=== PATIENT | female | born 1995 | race Caucasian/White ===

== ENCOUNTER 2020-01-21 09:28 | Outpatient (REF) | payer OTHER, SELFPAY ==
[2020-01-21 11:42] LABS: Hematocrit 40.1 % (37-47); Hemoglobin 13.4 g/dl (12.0-16.0); Mean Corpuscular HGB Conc 33.4 g/dl (31.0-35.0); Mean Corpuscular Hemoglobin 28.1 pg (27.0-33.0); Mean Corpuscular Volume 84.1 fL (80-98); Mean Platelet Volume 10.6 fL (9.4-12.3); Platelet Count 396 X10*3/uL (160-400); Red Blood Count 4.77 X10*6/uL (4.20-5.50); Red Cell Distribution Width 13.4 % (11.0-16.0); White Blood Count 6.5 X10*3/uL (4.8-10.8)
[2020-01-21 12:01] LABS: Alanine Aminotransferase 28 U/L (0-31); Albumin Level 4.2 g/dL (3.5-5.0); Alkaline Phosphatase 57 U/L (39-117); Anion Gap 14 (12-20); Aspartate Amino Transferase 21 U/L (5-31); Bilirubin Total 0.8 mg/dL (0.0-1.0); Blood Urea Nitrogen 10 mg/dL (9-16); Calcium 9.1 mg/dL (8.4-10.2); Carbon Dioxide 23 mmol/L (22-29); Chloride 104 mmol/L (96-108); Cholesterol 244 mg/dL; Estimated Glomerular Filt Rate > 60; Glucose Fasting 83 mg/dL (60-99); HDL Cholesterol 47 mg/dL; LDL Cholesterol Calculated 181 mg/dl; Potassium 4.5 mmol/l (3.3-5.1); Sodium 136 mmol/L (135-145); Total Protein 7.6 g/dL (6.5-8.0); Triglycerides 82 mg/dL
[2020-01-21 12:24] LABS: Thyroid Stimulating Hormone 1.39 mIU/mL (0.32-4.0)
== END 2020-01-21 09:29 | disposition home or self-care (01) ==
LOC: HO.HMGCLDS 09:28
PROVIDERS: PCP Internal Medicine; Visit Provider Internal Medicine
DX: J45.40 Moderate persistent asthma, uncomplicated (principal); Z00.00 Encounter for general adult medical examination without abnormal findings
CPT/HCPCS: 36415; 80053; 80061; 84443; 85027

== ENCOUNTER → 2020-04-28 09:06 | Outpatient (BNVA) | payer OTHER, SELFPAY | PROVIDERS: PCP Internal Medicine; Visit Provider Advanced Practice Midwife ==

== ENCOUNTER → 2020-08-08 11:42 | Outpatient (BNVA) | payer OTHER, SELFPAY | PROVIDERS: PCP Internal Medicine; Visit Provider Advanced Practice Midwife ==

== ENCOUNTER 2020-09-18 13:31 | Outpatient (REF) | payer OTHER, SELFPAY ==
[2020-09-19 02:39] LABS: CT PCR NOT DETECTED (Not Detect.); NG PCR NOT DETECTED (Not Detect.)
== END 2020-09-18 13:32 | disposition home or self-care (01) ==
LOC: HO.LAB 13:31
PROVIDERS: PCP Internal Medicine; Referring Provider Internal Medicine; Visit Provider Advanced Practice Midwife
DX: Z01.419 Encounter for gynecological examination (general) (routine) without abnormal findings (principal); I49.9 Cardiac arrhythmia, unspecified; N64.4 Mastodynia; Z20.2 Contact with and (suspected) exposure to infections with a predominantly sexual mode of transmission
CPT/HCPCS: 87491; 87591

== ENCOUNTER → 2020-09-28 13:55 | Outpatient (BNVA) | payer OTHER, SELFPAY | PROVIDERS: PCP Internal Medicine; Visit Provider Advanced Practice Midwife | DX: Z30.430 Encounter for insertion of intrauterine contraceptive device (principal) | CPT/HCPCS: 58300; 81025 ==

== ENCOUNTER 2020-10-25 08:25 | Outpatient (REF) | payer OTHER, SELFPAY ==
[2020-10-26 10:28] LABS: BV Int Neg Control Negative (Negative); BV Int Pos Control Positive (Positive)
== END 2020-10-25 08:26 | disposition home or self-care (01) ==
LOC: HO.LAB 08:25
PROVIDERS: Visit Provider Advanced Practice Midwife
DX: Z30.431 Encounter for routine checking of intrauterine contraceptive device (principal); R10.2 Pelvic and perineal pain; N92.1 Excessive and frequent menstruation with irregular cycle
CPT/HCPCS: 87480; 87510; 87660

== ENCOUNTER 2020-11-08 07:32 | Outpatient (REF) | payer OTHER, SELFPAY ==
[2020-11-08 12:23] LABS: Cholesterol 258 mg/dL; HDL Cholesterol 46 mg/dL; LDL Cholesterol Calculated 191 mg/dl; Triglycerides 105 mg/dL
== END 2020-11-08 07:33 | disposition home or self-care (01) ==
LOC: HO.HMGCLDS 07:32
PROVIDERS: PCP Internal Medicine; Visit Provider Internal Medicine
DX: E78.5 Hyperlipidemia, unspecified (principal)
CPT/HCPCS: 36415; 80061

== ENCOUNTER 2020-12-15 10:52 | Outpatient (REF) | payer OTHER, SELFPAY ==
[2020-12-15 13:59] LABS: Hematocrit 40.6 % (37-47); Hemoglobin 13.6 g/dl (12.0-16.0); Mean Corpuscular HGB Conc 33.5 g/dl (31.0-35.0); Mean Corpuscular Hemoglobin 28.9 pg (27.0-33.0); Mean Corpuscular Volume 86.4 fL (80-98); Mean Platelet Volume 10.2 fL (9.4-12.3); Platelet Count 381 X10*3/uL (160-400); Red Cell Distribution Width 12.5 % (11.0-16.0); White Blood Count 9.3 X10*3/uL (4.8-10.8)
[2020-12-15 15:30] LABS: Alanine Aminotransferase 13 U/L (0-31); Albumin Level 4.3 g/dL (3.5-5.0); Alkaline Phosphatase 65 U/L (39-117); Anion Gap 12 (12-20); Aspartate Amino Transferase 15 U/L (5-31); Bilirubin Total 1.2 mg/dL (0.0-1.0); Blood Urea Nitrogen 8 mg/dL (9-16); Calcium 9.5 mg/dL (8.4-10.2); Carbon Dioxide 23 mmol/L (22-29); Chloride 107 mmol/L (96-108); Estimated Glomerular Filt Rate > 60; Glucose Random 81 mg/dL (60-115); Iron 122 mcg/dL (30-160); Percent Iron Saturation 30 % (15-50); Potassium 4.5 mmol/L (3.3-5.1); Sodium 137 mmol/L (135-145); Total Iron Binding Capacity 412 mcg/dL (228-428); Total Protein 7.2 g/dL (6.5-8.0); Unsaturated Iron Binding 290 ug/dL
== END 2020-12-15 10:53 | disposition home or self-care (01) ==
LOC: HO.HMGCLDS 10:52
PROVIDERS: PCP Internal Medicine; Visit Provider Internal Medicine
DX: R53.83 Other fatigue (principal); J45.909 Unspecified asthma, uncomplicated
CPT/HCPCS: 36415; 80053; 83540; 84443; 85027

== ENCOUNTER 2021-01-24 08:24 | Outpatient (REF) | payer OTHER, SELFPAY ==
--- NOTE | ~2021-01-24 | US_ITS ---
EXAMINATION: US ABDOMEN COMPLETE CLINICAL INFORMATION: Unspecified abdominal pain. COMPARISON: Ultrasound abdomen 07/02/2017. TECHNIQUE: Real-time imaging of the abdominal viscera. FINDINGS: PANCREAS: Not well visualized due to bowel gas. ABDOMINAL AORTA: The proximal, mid, and distal segments are normal in caliber. INFERIOR VENA CAVA: Visualized portions are normal. LIVER: Normal. The liver is normal in size. The liver contour is normal. Parenchymal echogenicity is normal. No focal hepatic lesion. There is no intrahepatic biliary duct dilatation seen. GALLBLADDER: The gallbladder is physiologically distended. There is dependent echogenic material seen in the gallbladder suggestive of a layering small stones/gravel and sludge. The gallbladder wall is normal in thickness. There is no pericholecystic fluid. COMMON BILE DUCT: Normal in caliber measuring 0.4 cm in diameter. RIGHT KIDNEY: Normal. No hydronephrosis. No renal calculi or focal parenchymal lesions. The kidney measures 9.0 cm in maximum dimension. LEFT KIDNEY: Normal. No hydronephrosis. No renal calculi or focal parenchymal lesions. The kidney measures 10.0 cm in maximum dimension. SPLEEN: Normal. The spleen measures 8.8 cm in maximum dimension. FREE FLUID: None. US/US abdomen complete IMPRESSION: Small gallstones and sludge in the gallbladder. No evidence of cholecystitis. Limited visualization of the pancreas.
== END 2021-01-24 08:25 | disposition home or self-care (01) ==
LOC: HO.HMGCX 08:24
PROVIDERS: PCP Internal Medicine; Visit Provider Internal Medicine
DX: R10.9 Unspecified abdominal pain (principal)
CPT/HCPCS: 76700

== ENCOUNTER 2021-11-29 15:50 | Outpatient (REF) | payer OTHER, SELFPAY ==
[2021-11-30 11:48] LABS: CT PCR NOT DETECTED (Not Detect.); NG PCR NOT DETECTED (Not Detect.)
[2021-11-30 14:30] LABS: BV Int Neg Control Negative (Negative); BV Int Pos Control Positive (Positive)
== END 2021-11-29 15:51 | disposition home or self-care (01) ==
LOC: HO.LAB 15:50
PROVIDERS: Visit Provider Advanced Practice Midwife
DX: Z11.3 Encounter for screening for infections with a predominantly sexual mode of transmission (principal); R10.2 Pelvic and perineal pain
CPT/HCPCS: 87480; 87491; 87510; 87591; 87660

== ENCOUNTER 2022-05-27 11:01 | Outpatient (REF) | payer OTHER, SELFPAY ==
[2022-05-27 14:57] LABS: CT PCR NOT DETECTED (Not Detect.); NG PCR NOT DETECTED (Not Detect.)
[2022-05-28 12:30] LABS: BV Int Neg Control Negative (Negative); BV Int Pos Control Positive (Positive)
== END 2022-05-27 11:02 | disposition home or self-care (01) ==
LOC: HO.LAB 11:01
PROVIDERS: PCP Internal Medicine; Visit Provider Advanced Practice Midwife
DX: R10.2 Pelvic and perineal pain (principal); N91.5 Oligomenorrhea, unspecified; D64.4 Congenital dyserythropoietic anemia; R21 Rash and other nonspecific skin eruption
CPT/HCPCS: 0353U; 81025; 87480; 87510; 87660

== ENCOUNTER 2022-05-27 11:51 | Outpatient (REF) | payer OTHER, SELFPAY | END 2022-05-27 11:52 | disposition home or self-care (01) | LOC: HO.LNP 11:51 | PROVIDERS: Visit Provider Advanced Practice Midwife | DX: Z13.89 Encounter for screening for other disorder (principal) ==

== ENCOUNTER 2022-06-17 10:51 | Outpatient (REF) | payer OTHER, SELFPAY ==
--- NOTE | ~2022-06-17 | US_ITS ---
EXAMINATION: US PELVIS CLINICAL INFORMATION: Checking IUD. COMPARISON: None available. TECHNIQUE: Ultrasound of the pelvis is performed using both transabdominal and transvaginal transducers along with Doppler. Transvaginal imaging is performed due to inadequate visualization transabdominally. FINDINGS: Uterus: The uterus is anteverted and measures 6.6 cm in length, 3.3 cm in AP, and 4.3 cm in transverse dimension. The double wall endometrial thickness is 0.3 cm. The uterus is smooth in contour and has normal myometrial echogenicity. No visible fibroid. There is an IUD well located within the intrauterine cavity. Adnexa: Both ovaries are visualized. There is normal color-flow to the adnexa. There is no ovarian torsion. There is no pelvic ascites or fluid collection. Right ovary measures 3.0 x 1.8 x 2.4 cm and volume 6.8 mL. The ovary appears unremarkable. Previously it measured 3.2 x 2.5 x 3.2 cm. Left ovary measures 2.6 x 1.8 x 1.6 cm and volume 3.9 mL. There are punctate echogenic foci. Previously the left ovary measured 2.8 x 1.4 x 1.4 cm and volume 2.9 mL. US/US pelvic and transvaginal IMPRESSION: IUD is in correct position within the intrauterine cavity. Punctate calcifications left ovary. The ovaries are otherwise unremarkable.
== END 2022-06-17 10:52 | disposition home or self-care (01) ==
LOC: HO.US 10:51
PROVIDERS: PCP Internal Medicine; Visit Provider Advanced Practice Midwife
DX: Z30.431 Encounter for routine checking of intrauterine contraceptive device (principal); R10.2 Pelvic and perineal pain; N91.5 Oligomenorrhea, unspecified
CPT/HCPCS: 36415; 76830; 76856; 84443

== ENCOUNTER → 2022-07-02 14:51 | Outpatient (BNVA) | payer OTHER, SELFPAY | PROVIDERS: PCP Internal Medicine; Visit Provider Advanced Practice Midwife | DX: Z13.89 Encounter for screening for other disorder (principal) ==

== ENCOUNTER → 2022-09-04 14:00 | Outpatient (REF) | payer OTHER, SELFPAY | LOC: HO.SL 14:00 | PROVIDERS: Visit Provider Internal Medicine | DX: G47.33 Obstructive sleep apnea (adult) (pediatric) (principal); R40.0 Somnolence | CPT/HCPCS: 95806 ==

== ENCOUNTER 2022-10-14 08:16 | Outpatient (AMB) | payer OTHER, SELFPAY ==
[2022-10-14 08:30] VITALS: BMI 42.0
--- NOTE | 2022-10-14 08:30 | A.OFFVIS_ITS ---
Intake VS Expanded 10/14/22 08:30 10/14/22 10:38 Height 5 ft 1 in 5 ft 1 in Weight 222 lb 7.143 oz 222 lb BMI 42.0 41.9 Intake Visit Reasons: Hyperlipidemia Allergies bee pollen [BEE STINGS] Allergy (Severe, Verified 08/16/22 11:45) SWELLING venom-honey bee Allergy (Unknown, Verified 08/16/22 11:45) Unknown HPI Nutrition Presentation Details Pt presents for MNT for hyperlipidemia. Pt was referred by Dr. Gideon Hopkins Pt reports she is also working on reducing gluten and dairy related to GI symptoms (diarrhea with dairy), gluten - upset stomach Who prepares meals: self/parents/in laws/ordering out 7:30 or 10 B: 7- 9AM - sultana/hashbrown strawberry refreshment or sweet tea or caramel coffee with almond milk snack 10 -11 am , refresher or fruit 11: chicken/wing/rice , refresher 6 pm : Pasta/gluten free , sausage fruits: 0- 1/d dairy: once/d- none dairy fish : not including sweets: ++ exercise: 3 times /wk 30-40 min at Gym - walking ETOH: 1-2 /wk UCE-Mbdamim-Tb.Jeor Equation Height 5 ft 1 in Weight 222 lb Resting Metabolic Rate 1695.26 Calculated Activity Level Sedentary Calories Needed to Maintain Weight 2033.31 Diagnosis Nutrition problem #1 excessive energy intake and food nutri know defi As related to (etiology) #1 lack of nutrit education As evidenced by (sign/symptom) #1 high BMI and knowledge deficit of diet Monitoring/Goals Nutrition problem monitoring level of knowledge/skill (, lipid improvements) and weight Nutrition goal/outcome wt loss 5lbs in 2 months (describe low cholesterol foods) Outcome progress verbalized understanding Learning/Education Readiness to learn good Stages of change preparation Educational materials provided Yes (Low fat/low chol , meal planning) Most Recent Diabetes Results: No Data to Display PFSH Medical History Abdominal pain ADHD Annual physical exam Anxiety Asthma Cholelithiasis Fatigue Hyperlipidemia Tremor Surgical History H/O foot surgery Family History Father No problems noted. Mother No problems noted. Brother No problems noted. Sister No problems noted. Other Substance use disorder Social History Housing: House Alcohol intake: current Alcohol intake frequency: holidays/special occasions only Patient Tobacco Use Status: Never used Tobacco e-Cigarette/Vaping Use: Never Used Current occupational status: employed Sexual orientation: Straight/Heterosexual Gender identity: Female Cognitive needs: No Hearing needs: No Vision needs: Yes Female Reproductive History Menstrual Age of Menarche: 14 Assessment & Plan Assessment & Plan (1) Hyperlipidemia: Code(s): E78.5 - Hyperlipidemia, unspecified Plan: used wt 101 kg Est kcal needs as per MSJ: 2000 (40% carb, 30% protein/fat) Est fluid needs as per 25-30 ml/d: 2522- 3030 Est prot per day as per 1 g/kg bw: 101 g Recommend fiber intake : 8-10 g per day and gradually increase to 25-28 g or as tolerated Recommend sodium intake per day : less than 2000 mg Educated patient on: ( R = reviewed V = verbalizes understanding N/R = needs review N/A = not applicable * Food sources of carbohydrate, adequate serving sizes and its role in various health conditions: R basic * Differences between complex carbohydrates a simple carbohydrates, role of fiber in diet: R basic * Differences between types of fats and role in diet (mono on saturated fat fatty acids, saturated fatty acids, trans fats): R basic * Food sources of sodium in salt and healthy modifications for heart health in kidney health: NR * Vitamins and minerals: R * Healthy plate method concept: R * Physical activity: Benefits a precaution: R Patient Instructions: Reduce on fats by reducing frequency of fried food items Have a meal replacement once a day practice mindful eating See low cholesterol meal concept education material printed and meal plan Coding Level of Care Code Nutr Indiv Intake (28798) Diagnoses Hyperlipidemia E78.5 Time Spent (min) 40
[2022-10-14 10:38] VITALS: BMI 41.9
== END 2022-10-14 09:17 | disposition home or self-care (01) ==
PROVIDERS: Visit Provider Dietitian, Registered
DX: E78.5 Hyperlipidemia, unspecified (principal)

== ENCOUNTER → 2022-10-14 08:16 | Outpatient (BNVA) | payer OTHER, SELFPAY | PROVIDERS: Visit Provider Dietitian, Registered | DX: E78.5 Hyperlipidemia, unspecified (principal); Z71.3 Dietary counseling and surveillance | CPT/HCPCS: 97802 ==

== ENCOUNTER 2023-08-13 08:26 | Outpatient (REF) | payer OTHER, SELFPAY ==
[2023-08-13 10:22] LABS: MANUAL DIFF FLAG NO
[2023-08-13 10:35] LABS: Basophils Absolute Auto 0.1 X10*3/uL (0.0-0.2); Basophils Percent Auto 0.5 % (0-2); Eosinophils Absolute Auto 0.1 X10*3/uL (0.0-0.4); Hematocrit 40.9 % (37.0-47.0); Hemoglobin 13.7 g/dl (12.0-16.0); Imm Gran Abs Auto 0.03 X10*3/uL (0.00-0.03); Imm Gran Pct Auto 0.3 % (0.0-0.4); Lymphocytes Absolute Auto 2.9 X10*3/uL (1.2-4.9); Lymphocytes Percent Auto 31.6 % (20-40); Mean Corpuscular HGB Conc 33.5 g/dl (31.0-35.0); Mean Corpuscular Hemoglobin 29.3 pg (27.0-33.0); Mean Corpuscular Volume 87.6 fL (80.0-98.0); Mean Platelet Volume 10.4 fL (9.4-12.3); Monocytes Absolute Auto 0.7 X10*3/uL (0.1-1.2); Monocytes Percent Auto 7.7 % (2-11); Neutrophils Absolute Auto 5.5 x10*3/uL (2.0-8.3); Neutrophils Percent Auto 58.9 % (45-73); Platelet Count 372 X10*3/uL (160-400); Red Blood Count 4.67 X10*6/uL (4.20-5.50); Red Cell Distribution Width 12.5 % (11.0-16.0); White Blood Count 9.3 X10*3/uL (4.8-10.8)
[2023-08-13 10:51] LABS: Alanine Aminotransferase 14 U/L (0-31); Albumin Level 4.3 g/dL (3.5-5.0); Alkaline Phosphatase 64 U/L (39-117); Anion Gap 13 (12-20); Aspartate Amino Transferase 16 U/L (5-31); Bilirubin Total 0.9 mg/dL (0.0-1.0); Blood Urea Nitrogen 9 mg/dL (9-16); Calcium 9.5 mg/dL (8.4-10.2); Carbon Dioxide 23 mmol/L (22-29); Chloride 106 mmol/L (96-108); Cholesterol 202 mg/dL (<200); Estimated Glomerular Filt Rate > 60; Glucose Fasting 90 mg/dL (60-99); HDL Cholesterol 45 mg/dL (>40); Iron 113 mcg/dL (30-160); LDL Cholesterol Calculated 138 mg/dL (<100); Percent Iron Saturation 33 % (15-50); Potassium 4.3 mmol/L (3.3-5.1); Sodium 138 mmol/L (135-145); Total Iron Binding Capacity 339 mcg/dL (228-428); Total Protein 7.7 g/dL (6.5-8.0); Triglycerides 97 mg/dL (<150); Unsaturated Iron Binding 226 ug/dL
[2023-08-13 11:21] LABS: Folate 5.4 ng/mL (> or = 4.0); Vitamin B12 430 pg/mL (200-900)
== END 2023-08-13 08:27 | disposition home or self-care (01) ==
LOC: HO.HMGCLDS 08:26
PROVIDERS: PCP Internal Medicine; Visit Provider Internal Medicine
DX: E78.5 Hyperlipidemia, unspecified (principal); R40.0 Somnolence; R53.83 Other fatigue
CPT/HCPCS: 36415; 80053; 80061; 82607; 82746; 83540; 85025

== ENCOUNTER 2023-08-22 13:18 | Outpatient (AMB) | payer OTHER, SELFPAY ==
--- NOTE | 2023-08-22 13:38 | MHC.PC.OV ---
Vital Signs 08/22/23 13:39 Height 5 ft 1 in Weight 216 lb BMI 40.8 BP 104/66 Blood Pressure Location Lt brachial Position Sitting Pulse 78 Pulse Source Pulse Oximeter Pulse Oximetry (%) 98 Oxygen Delivery Method Room Air Intake Visit Reasons: PE, discuss possible food allergies Intake Note: Pt is here today for for PE. Allergies bee pollen [BEE STINGS] Allergy (Severe, Verified 08/22/23 13:40) SWELLING venom-honey bee Allergy (Unknown, Verified 08/22/23 13:40) Unknown Medication List - Last Reconciled 08/22/23 by Tamela Hopkins MD albuterol sulfate 90 mcg/actuation 2 inhalations inhalation QID PRN levonorgestrel (Kyleena) intrauterine Tobacco use date assessed: 08/22/23 Dental Screening Dental Screen Date: 08/22/23 Did you have a dental visit in the last 12 months?: Yes Did you have a dental problem in the last 6 months where you did not have access to dental care?: No Was dental information given to patient?: Patient has dentist HPI PE, discuss possible food allergies HPI Details Pt presents for PE. Pt c/o watery diarrhea up to 6 x a day, for 1 month on and off not related to change in her diet. Patient denies abdominal pain nausea vomiting hematochezia melena or weight loss. PFSH Medical History ADHD Cholelithiasis Abdominal pain Anxiety Fatigue Tremor Annual physical exam Hyperlipidemia Asthma Surgical History H/O foot surgery Family History Father No problems noted. Mother No problems noted. Brother No problems noted. Sister No problems noted. Other Substance use disorder Social History Housing: House Alcohol intake: current Alcohol intake frequency: holidays/special occasions only Patient Tobacco Use Status: Never used Tobacco e-Cigarette/Vaping Use: Never Used service: No Current occupational status: employed Sexual orientation: Straight/Heterosexual Gender identity: Female Cognitive needs: No Hearing needs: No Vision needs: Yes Female Reproductive History Menstrual Age of Menarche: 14 Questionnaire PHQ-9 Over the last 2 weeks, how often have you been bothered by any of the following problems? 1. Little interest or pleasure in doing things: several days 2. Feeling down, depressed, or hopeless: several days 3. Trouble falling or staying asleep, or sleeping too much: not at all 4. Feeling tired or having little energy: several days 5. Poor appetite or overeating: not at all 6. Feeling bad about yourself - or that you are a failure or have let yourself or your family down: not at all 7. Trouble concentrating on things, such as reading the newspaper or watching television: not at all 8. Moving or speaking so slowly that other people could have noticed. Or the opposite - being so fidgety or restless that you have been moving around a lot more than usual: more than half the days 9. Thoughts that you would be better off or of hurting yourself in some way: not at all Total score: 5 Depression Screening Interpretation: Negative Depression Screening Done: Yes Source: Developed by Drs. Venkatesh Mason, Kristina Fleming, Koko Emmanuel and colleagues, with an educational elliot from [employer]. Thrive Questionnaire Date Thrive assessed: 08/22/23 I am a: Patient What is your living situation today?: I have a steady place to live Within the past 12 months, did the food you bought not last and you didn't have the money to get more?: Never true Within the past 12 months, did you worry whether your food would run out before you got money to buy more?: Never true Do you have trouble paying for medicines?: No Do you have trouble getting transportation to medical appointments?: No Do you have trouble paying your heating and electricity bill?: No Do you have trouble taking care of your child, family member or friend?: No Do you have trouble with day-to-day activities such as bathing, preparing meals, shopping, managing finances, etc.?: No Are you currently unemployed and looking for a job?: No Are you interested in more education?: No Please select the resources that you would like help with: None THRIVE Score: 0 AUDIT C Alcohol Use Questionnaire (AUDIT-C) 1. How often do you have a drink containing alcohol?: 2-4 times a month 2. How many drinks containing alcohol do you have on a typical day when you are drinking?: 1 or 2 3. How often do you have six or more drinks on one occasion?: Never Total Score: 2 DIMAS-7 AMB Questionnaire DIMAS-7 Date DIMAS - 7 assessed: 08/22/23 Feeling nervous, anxious, or on edge: 3 = Nearly every day Not being able to stop or control worryin = Nearly every day Worrying too much about different things: 3 = Nearly every day Trouble relaxin = More than half the days Being so restless that it is hard to sit still: 3 = Nearly every day Becoming easily annoyed or irritable: 3 = Nearly every day Feeling afraid as if something awful might happen: 1 = Several days Total DIMAS-7 score (0-4 normal; 5-9 mild; 10-14 moderate; 15-21 severe): 18 Source: Developed by Drs. Venkatesh Mason, Kristina Fleming, Koko Emmanuel and colleagues, with an educational elliot from [employer]. Review of Systems Const All systems reviewed & are unremarkable except as noted in HPI and below Reports no additional complaints Eyes Reports no additional complaints ENT Reports no additional complaints Card Reports no additional complaints Resp Reports no additional complaints GI Reports no additional complaints Reports no additional complaints Physical exam (Primary Care) Vital Signs: Last Vital Signs Pulse 78 08/22/23 13:39 BP 104/66 08/22/23 13:39 Pulse Ox 98 08/22/23 13:39 Oxygen Delivery Method Room Air 08/22/23 13:39 BMI result Body Mass Index 40.8 Tobacco/Smoking Status: Tobacco use Status Tobacco use date assessed 08/22/23 08/22/23 13:44 Patient Tobacco Use Status Never used Tobacco 08/22/23 13:44 e-Cigarette/Vaping Use Never Used 08/22/23 13:44 PHQ-9: PHQ-9 Score PHQ-9: Total score 5 08/22/23 13:54 Depression Screening Interpretation: Negative Thrive Assessment: Date of Thrive Assessment Date Thrive assessed 08/22/23 08/22/23 13:54 Const General: no acute distress HENMT Head: Yes normal to inspection Ears: hearing grossly normal bilaterally Face and sinus: Yes normal facial exam Mouth: Normal oral and palatal mucosa present Throat: Yes posterior oropharynx normal Eyes General: appearance normal, both eyes and all related structures Neck Neck: Yes no lymphadenopathy and Yes supple Resp Effort & Inspection: normal respiratory effort Auscultation: clear to auscultation bilaterally Cardio Rhythm: regular rhythm Heart sounds: S1 normal heart sound present and S2 normal heart sound present GI Inspection: Yes normal to inspection Palpation (GI): Soft to palpation Percussion: Yes normal to percussion Auscultation: normal bowel sounds Assessment and Plan Assessment & Plan (1) Diarrhea: Code(s): R19.7 - Diarrhea, unspecified Plan: For recurrent diarrhea obtain GI panel and stool leukocytes, bland diet for 1 week and then slowly introduce fresh vegetables and fruits discussed with the patient. She was advised to try Citrucel. If the symptoms persist she will be referred to GI (2) Cholelithiasis: Code(s): K80.20 - Calculus of gallbladder without cholecystitis without obstruction Plan: Obtain follow-up abdominal ultrasound (3) Plantar wart of right foot: Code(s): B07.0 - Plantar wart Plan: Referred to Podiatry (4) Annual physical exam: Code(s): Z00.00 - Encounter for general adult medical examination without abnormal findings Plan: Well-balanced diet regular exercise weight loss discussed with the patient Orders: Orders GI Panel Today R19.7 - Diarrhea, unspecified Leukocytes Stool Qualitative Today R19.7 - Diarrhea, unspecified US abdomen limited Today K80.20 - Calculus of gallbladder without cholecystitis without obstruction Lipid Panel 1 Year E78.5 - Hyperlipidemia, unspecified, Z00.00 - Encounter for general adult medical examination without abnormal findings Complete Blood Count Auto Diff 1 Year E78.5 - Hyperlipidemia, unspecified, Z00.00 - Encounter for general adult medical examination without abnormal findings Comprehensive Climax. Panel Fast 1 Year E78.5 - Hyperlipidemia, unspecified, Z00.00 - Encounter for general adult medical examination without abnormal findings Referrals Podiatry Referral B07.0 - Plantar wart Dermatology Referral L68.0 - Hirsutism, L73.2 - Hidradenitis suppurativa Coding Level of Care Code Est Pt Prev Care 18-39y(91997) Diagnoses Diarrhea R19.7 Cholelithiasis K80.20 Plantar wart of right foot B07.0 Annual physical exam Z00.00
[2023-08-22 13:39] VITALS: BP 104/66; PULSE 78; O2SAT 98; BMI 40.8
== END 2023-08-22 15:32 | disposition home or self-care (01) ==
PROVIDERS: Visit Provider Internal Medicine
DX: Z00.00 Encounter for general adult medical examination without abnormal findings (principal); R19.7 Diarrhea, unspecified; K80.20 Calculus of gallbladder without cholecystitis without obstruction; B07.0 Plantar wart
CPT/HCPCS: 99395

== ENCOUNTER 2023-08-23 11:45 | Outpatient (REF) | payer OTHER, SELFPAY ==
[2023-08-23 16:32] LABS: Leukocytes Stool Qualitative NEGATIVE (NEGATIVE)
[2023-08-24 11:48] LABS: Adenovirus F 40/41 Not Detected (Not Detect.); Astrovirus Not Detected (Not Detect.); Campylobacter Not Detected (Not Detect.); Cryptosporidium Not Detected (Not Detect.); Cyclospora cayetanensis Not Detected (Not Detect.); E. coli EAEC Not Detected (Not Detect.); E. coli EPEC Not Detected (Not Detect.); E. coli ETEC Not Detected (Not Detect.); E. coli STEC Not Detected (Not Detect.); Entamoeba histolytica Not Detected (Not Detect.); Giardia lamblia Not Detected (Not Detect.); Plesiomonas shigelloides Not Detected (Not Detect.); Rotavirus A Not Detected (Not Detect.); Salmonella Not Detected (Not Detect.); Sapovirus Not Detected (Not Detect.); Shigella sp./EIEC Not Detected (Not Detect.); Vibrio Not Detected (Not Detect.); Vibrio Cholerae Not Detected (Not Detect.); Yersinia enterocolitica Not Detected (Not Detect.)
[2023-08-26 13:22] LABS: Norovirus Stool PCR NOT DETECTED
== END 2023-08-23 11:46 | disposition home or self-care (01) ==
LOC: HO.HMGCLNP 11:45
PROVIDERS: PCP Internal Medicine; Visit Provider Internal Medicine
DX: R19.7 Diarrhea, unspecified (principal)
CPT/HCPCS: 87507; 89055

== ENCOUNTER 2023-08-28 08:19 | Outpatient (REF) | payer OTHER, SELFPAY ==
--- NOTE | ~2023-08-28 | US_ITS ---
EXAMINATION: US ABDOMEN LIMITED CLINICAL INFORMATION: Calculus of gallbladder without cholecystitis without obstruction. COMPARISON: Ultrasound abdomen complete 01/24/2021 and 07/02/2017. TECHNIQUE: Real-time imaging of the right upper quadrant abdominal viscera. Limited visualization due to bowel gas. FINDINGS: PANCREAS: Limited visualization of pancreatic tail and head. Imaged portion of pancreatic body is unremarkable. LIVER: Hepatomegaly, 16.3 cm. Moderately increased hepatic parenchymal heterogeneity and echogenicity could be associated with hepatocellular disease/hepatic steatosis and substantially limits visualization. Correlation with liver function tests and clinical exam recommended to determine further management. GALLBLADDER: Gallbladder difficult to visualize as there is extensive shadowing in the region of the gallbladder fossa characteristic of innumerable shadowing gallstones. Gallbladder wall difficult to visualize, but imaged segment appears thickened, measuring approximately 5 mm. COMMON BILE DUCT: Normal in caliber measuring 0.3 cm in diameter. RIGHT KIDNEY: Normal. No hydronephrosis. No renal calculi or focal parenchymal lesions. The kidney measures 9.1 cm in maximum dimension. FREE FLUID: None. US/US abdomen limited IMPRESSION: 1. Hepatomegaly, 16.3 cm. Moderately increased hepatic parenchymal heterogeneity and echogenicity could be associated with hepatocellular disease/hepatic steatosis and substantially limits visualization. Correlation with liver function tests and clinical exam recommended to determine further management. 2. Gallbladder difficult to visualize as there is extensive shadowing in the region of the gallbladder fossa characteristic of innumerable shadowing gallstones. Gallbladder wall difficult to visualize, but imaged segment appears thickened, measuring approximately 5 mm.
== END 2023-08-28 08:20 | disposition home or self-care (01) ==
LOC: HO.US 08:19
PROVIDERS: PCP Internal Medicine; Visit Provider Internal Medicine
DX: K80.20 Calculus of gallbladder without cholecystitis without obstruction (principal)
CPT/HCPCS: 76705

== ENCOUNTER 2023-11-03 12:05 | Outpatient (REF) | payer OTHER, SELFPAY ==
[2023-11-03 13:56] LABS: Alanine Aminotransferase 18 U/L (0-31); Albumin Level 4.2 g/dL (3.5-5.0); Alkaline Phosphatase 62 U/L (39-117); Aspartate Amino Transferase 19 U/L (5-31); Bilirubin Direct 0.2 mg/dL (0.0-0.5); Bilirubin Total 0.9 mg/dL (0.0-1.0); Total Protein 7.4 g/dL (6.5-8.0)
[2023-11-04 08:30] LABS: HBS Num1 0.73 mIU/mL (0-7.99); HBc Num1 0.08 S/CO (0.00-0.79); HBsAGNum1 0.28 S/CO (0.00-0.99); Hepatitis B Core Antibody Nonreactive (Nonreactive); Hepatitis B Surface Antigen Negative (Negative); ~HepC Num1 0.14 S/CO (0.00-0.79); ~Hepatitis B Surface Antibody NONREACTIVE (Nonreactive); ~Hepatitis C Antibody Nonreactive (Nonreactive)
== END 2023-11-03 12:06 | disposition home or self-care (01) ==
LOC: HO.HMGCLDS 12:05
PROVIDERS: PCP Internal Medicine; Visit Provider Internal Medicine
DX: K76.0 Fatty (change of) liver, not elsewhere classified (principal)
CPT/HCPCS: 36415; 80076; 86704; 86706; 86803; 87340

== ENCOUNTER 2023-11-05 09:31 | Outpatient (AMB) | payer OTHER, SELFPAY ==
--- NOTE | 2023-11-05 09:31 | A.OFFPC_ITS ---
Intake Visit Reasons: Telehealth visit to discuss labs and questions Allergies bee pollen [BEE STINGS] Allergy (Severe, Verified 11/05/23 09:32) SWELLING venom-honey bee Allergy (Unknown, Verified 11/05/23 09:32) Unknown Medication List - Last Reconciled 11/05/23 by Tamela Hopkins MD albuterol sulfate 90 mcg/actuation 2 inhalations inhalation QID PRN levonorgestrel (Kyleena) intrauterine Tobacco use date assessed: 11/05/23 Dental Screening Dental Screen Date: 08/22/23 HPI Telehealth visit to discuss labs and questions HPI Details This is a telehealth visit to discuss results of the abdominal ultrasound. Patient reports intermittent diarrhea after eating fatty foods like sausages. She reports intermittent right upper quadrant abdominal discomfort but not persistent pain nausea vomiting fever chills. Patient denies hematochezia melena. Abdominal ultrasound was consistent with hepatomegaly and fatty liver. Patient drinks usually 1 or 2 beer a week. [facility] Medical History ADHD Cholelithiasis Abdominal pain Anxiety Fatigue Tremor Annual physical exam Hyperlipidemia Asthma Surgical History H/O foot surgery Family History Father No problems noted. Mother No problems noted. Brother No problems noted. Sister No problems noted. Other Substance use disorder Social History Housing: House Alcohol intake: current Alcohol intake frequency: holidays/special occasions only Patient Tobacco Use Status: Never used Tobacco e-Cigarette/Vaping Use: Never Used service: No Current occupational status: employed Sexual orientation: Straight/Heterosexual Gender identity: Female Cognitive needs: No Hearing needs: No Vision needs: Yes Female Reproductive History Menstrual Age of Menarche: 14 Questionnaire Thrive Questionnaire Date Thrive assessed: 08/22/23 DIMAS-7 AMB Questionnaire DIMAS-7 Date DIMAS - 7 assessed: 08/22/23 Source: Developed by Drs. Venkatesh Mason, Kristina Fleming, Koko Emmanuel and colleagues, with an educational elliot from [employer]. Review of Systems Const All systems reviewed & are unremarkable except as noted in HPI and below Reports no additional complaints Eyes Reports no additional complaints ENT Reports no additional complaints Card Reports no additional complaints Resp Reports no additional complaints GI Reports no additional complaints Reports no additional complaints Physical exam (Primary Care) Tobacco/Smoking Status: Tobacco use Status Tobacco use date assessed 11/05/23 11/05/23 09:32 Patient Tobacco Use Status Never used Tobacco 11/05/23 09:32 e-Cigarette/Vaping Use Never Used 11/05/23 09:32 Thrive Assessment: Date of Thrive Assessment Date Thrive assessed 08/22/23 11/05/23 09:32 Telehealth Telehealth Telehealth Platform: Telephone Location of provider rendering services: practice address Location of patient: address on file Patient Identification confirmed using: Name, : Yes Telehealth method: voice only Patient verbally consented to treatment: Yes Patient verbally consented to billing insurance company: Yes Patient informed of any privacy concerns related to visit: Yes Minutes spent on Phone/Video with Pt.: 15 Assessment and Plan Assessment & Plan (1) Gall bladder stones: Comment: Abdominal ultrasound consistent with multiple gallstones hepatomegaly and fatty liver, stool test negative Code(s): K80.20 - Calculus of gallbladder without cholecystitis without obstruction Plan: For intermittent rapid quadrant pain and diarrhea after eating fatty foods on ultrasound consistent with multiple gallstones patient will be referred to a surgeon to discuss cholecystectomy. She was advised to avoid fatty processed foods (2) Fatty liver: Code(s): K76.0 - Fatty (change of) liver, not elsewhere classified Plan: Decrease caloric intake increase physical activity weight loss discussed with the patient. She was advised to avoid high fructose foods and saturated fats. Orders: Referrals General Surgery Referral K80.20 - Calculus of gallbladder without cholecystitis without obstruction Coding Level of Care Code Tele Est Pt Level 3 (50853) Diagnoses Gall bladder stones K80.20 Fatty liver K76.0
== END 2023-11-05 10:55 | disposition home or self-care (01) ==
LOC: HO.HMGC 09:31
PROVIDERS: PCP Internal Medicine; Visit Provider Internal Medicine
DX: K80.20 Calculus of gallbladder without cholecystitis without obstruction (principal); K76.0 Fatty (change of) liver, not elsewhere classified
CPT/HCPCS: 99442

== ENCOUNTER 2023-11-10 13:39 | Outpatient (AMB) | payer OTHER, SELFPAY ==
--- NOTE | 2023-11-10 13:40 | A.OFFVIS_ITS ---
Vital Signs 11/10/23 13:44 Height 5 ft 1 in Weight 213 lb BMI 40.2 BP 129/74 Blood Pressure Location Lt brachial Position Sitting Pulse 77 Intake Visit Reasons: Calculus of gallbladder without cholecystitis Intake Note: Patient is seen in office for evaluation and treatment of calculus of the gallbladder. Pt c/o: had ultrasound done in the past, onset for years, discomfort in the upper abdomen radiates to the back, post pandrial nausea/loose stool, denies any other concerns Manager Utilization Management Required: No Accompanied by: Self / Same As Patient Allergies bee pollen [BEE STINGS] Allergy (Severe, Verified 11/10/23 13:44) SWELLING venom-honey bee Allergy (Unknown, Verified 11/10/23 13:44) Unknown HPI Comments Details: Patient presents with longstanding history of biliary colic. She has had several episodes of right upper quadrant pain radiating around to her back. She has has had a couple of ultrasounds which document marked cholelithiasis. Patient also thinks she has fatty food intolerance and has had her diet altered because she is very afraid to eat because of recurrence of symptoms. She other perry has regular bowel habits. Never been jaundiced before. Patient has had multiple medical and ER visits for her symptoms. Chart was reviewed and patient evaluate [facility] Medical History ADHD Cholelithiasis Abdominal pain Anxiety Fatigue Tremor Annual physical exam Hyperlipidemia Asthma Surgical History H/O foot surgery Family History Father No problems noted. Mother No problems noted. Brother No problems noted. Sister No problems noted. Other Substance use disorder Social History Housing: House Alcohol intake: current Alcohol intake frequency: holidays/special occasions on ly Patient Tobacco Use Status: Never used Tobacco e-Cigarette/Vaping Use: Never Used service: No Current occupational status: employed Sexual orientation: Straight/Heterosexual Gender identity: Female Cognitive needs: No Hearing needs: No Vision needs: Yes Female Reproductive History Menstrual Age of Menarche: 14 Physical Exam Vital Signs: Last Vital Signs Pulse 77 11/10/23 13:44 BP 129/74 0812/24 13:44 BMI result Body Mass Index 40.2 Eyes Other: Anicteric Chest Other: Chest breath sounds bilaterally, HS 1 in GI Other: Very corpulent abdomen, soft, benign Assessment & Plan Assessment & Plan (1) Gall bladder stones: Comment: Abdominal ultrasound consistent with multiple gallstones hepatomegaly and fatty liver, stool test negative Code(s): K80.20 - Calculus of gallbladder without cholecystitis without obstruction Category: Surgical (2) Symptomatic cholelithiasis: Code(s): K80.20 - Calculus of gallbladder without cholecystitis without obstruction Category: Surgical Plan Risks, benefits, alternatives of laparoscopic possible open cholecystectomy reviewed the patient included but not limited to bleeding, infection, recurrence of symptoms, numbness, pain, scarring, bowel or bile duct injury or leak and the patient wishes to proceed. All questions answered. Arrangements were made for this. Coding Level of Care Code New Pt Level 5 (47620) Diagnoses Gall bladder stones K80.20 Symptomatic cholelithiasis K80.20
[2023-11-10 13:44] VITALS: BP 129/74; PULSE 77; BMI 40.2
== END 2023-11-10 13:52 | disposition home or self-care (01) ==
PROVIDERS: PCP Internal Medicine; Visit Provider Surgery
DX: K80.20 Calculus of gallbladder without cholecystitis without obstruction (principal)
CPT/HCPCS: 99204

== ENCOUNTER → 2023-11-10 13:39 | Outpatient (BNVA) | payer OTHER, SELFPAY | PROVIDERS: PCP Internal Medicine; Visit Provider Surgery ==

== ENCOUNTER 2023-12-17 09:10 | Outpatient (REF) | payer OTHER, SELFPAY ==
[2023-12-17 11:10] LABS: TSH reflex Free T4 1.16 uIU/mL (0.32-4.0); Vitamin D 25-OH Total 25.5 ng/mL (>30)
== END 2023-12-17 09:11 | disposition home or self-care (01) ==
LOC: HO.HMGCLDS 09:10
PROVIDERS: PCP Internal Medicine; Visit Provider Internal Medicine
DX: L65.9 Nonscarring hair loss, unspecified (principal)
CPT/HCPCS: 36415; 82306; 84443

== ENCOUNTER 2023-12-26 09:45 | Day surgery (SDC) | payer OTHER, SELFPAY ==
[2023-12-24 14:03] VITALS: BMI 40.2
--- NOTE | 2023-12-24 15:02 | P.CONAN_ITS ---
Documented by User: Liliam Main NP 12/24/23 15:03 HPI - Anesthesia Eval Consult details Narrative: 28yo F for Cholecystectomy Laparoscopic PMFSH Active Problems Active Problems: All Active Problems Hair loss (Acute) Symptomatic cholelithiasis (Acute) Gall bladder stones (Acute) Fatty liver (Acute) Hidradenitis suppurativa (Acute) Hirsutism (Acute) Plantar wart of right foot (Acute) Diarrhea (Acute) Allergies (Acute) Daytime sleepiness (Acute) Hyperlipidemia (Acute) Pelvic cramping (Acute) Encounter for annual routine gynecological examination (Acute) Encounter for IUD insertion (Acute) control counseling (Acute) Annual physical exam (Acute) Cholelithiasis (Acute) Abdominal pain (Acute) Anxiety (Acute) Fatigue (Acute) Asthma (Acute) Tremor (Acute) Hyperlipidemia (Acute) Past Medical History Medical History Sleep apnea ADHD Cholelithiasis Abdominal pain Anxiety Fatigue Tremor Hyperlipidemia Asthma Family History Family History Father No problems noted. Mother No problems noted. Brother No problems noted. Sister No problems noted. Other Substance use disorder Surgical History Surgical History H/O foot surgery Social History Social History Housing: House Are you a primary care team coordinator scheduler to a significant other at home: No Do you presently have visiting nurse or other home services: No Alcohol intake: current Alcohol intake frequency: holidays/special occasions only Patient Tobacco Use Status: Never used Tobacco e-Cigarette/Vaping Use: Never Used Use of substances other than those prescribed or required for medical reasons: Yes Substance Use Frequency: Weekly Have you been hit, kicked, punched, or otherwise hurt by someone within the past year? If so, by whom?: No Are you DNR?: No Advance Directives: No Advance Directives Information Provided: Yes Recently lost weight without trying: No Nutrition Risks: No Nutritional Risk Patient : No service: No Current occupational status: employed Sexual orientation: Straight/Heterosexual Gender identity: Female Cognitive needs: No Hearing needs: No Vision needs: Yes Meds Allergies Allergy/AdvReac Type Severity Reaction Status Date / Time bee pollen [BEE STINGS] Allergy Severe SWELLING Verified 11/10/23 13:44 Home Medications ?Medication ?Instructions ?Recorded ?Confirmed ?Last Taken ?Type levonorgestrel 17.5 mcg/24 hr (up 1 device intrauterine ONCE 12/13/20 12/24/23 Unknown History to 5 yrs) 19.5mg intrauterine device (Kyleena) Exam Height,Weight and Vital Signs: Height 5 ft 1 in Weight 96.615 kg Pertinent Lab Results Pertinent Lab Results: Laboratory Tests 08/13/23 08:55 WBC 9.3 Hgb 13.7 Hct 40.9 Plt Count 372 Sodium 138 Potassium 4.3 Chloride 106 Carbon Dioxide 23 BUN 9 Creatinine 0.78 Assessment and Plan Assessment Anesthesia Assessment: Chart Reviewed Documented by User: Judy Taveras MD 12/26/23 11:06 [facility] Past Medical History Medical History Sleep apnea ADHD Cholelithiasis Abdominal pain Anxiety Fatigue Tremor Hyperlipidemia Asthma Family History Family History Father No problems noted. Mother No problems noted. Brother No problems noted. Sister No problems noted. Other Substance use disorder Family history of problems with anesthesia: No Surgical History Surgical History H/O foot surgery History of Problems with Anesthesia: No Social History Social History Housing: House Are you a primary care team coordinator scheduler to a significant other at home: No Do you presently have visiting nurse or other home services: No Alcohol intake: current Alcohol intake frequency: holidays/special occasions only Patient Tobacco Use Status: Never used Tobacco e-Cigarette/Vaping Use: Never Used Use of substances other than those prescribed or required for medical reasons: Yes Substance Use Frequency: Weekly Have you been hit, kicked, punched, or otherwise hurt by someone within the past year? If so, by whom?: No Are you DNR?: No Advance Directives: No Advance Directives Information Provided: Yes Recently lost weight without trying: No Nutrition Risks: No Nutritional Risk Patient : No service: No Current occupational status: employed Sexual orientation: Straight/Heterosexual Gender identity: Female Cognitive needs: No Hearing needs: No Vision needs: Yes Meds Allergies Allergy/AdvReac Type Severity Reaction Status Date / Time bee pollen [BEE STINGS] Allergy Severe SWELLING Verified 11/10/23 13:44 Home Medications ?Medication ?Instructions ?Recorded ?Confirmed ?Last Taken ?Type levonorgestrel 17.5 mcg/24 hr (up 1 device intrauterine ONCE 12/13/20 12/24/23 Unknown History to 5 yrs) 19.5mg intrauterine device (Kyleena) Exam Airway Mallampati Class: II TM Dist: <=3cm Neck ROM: Full Heart: rrr Lungs: cta Assessment and Plan Assessment Anesthesia Assessment: Anesthesia Plan Discussed Final Anesthetic Review Family History of Problems with Anesthesia: No History of Problems with Anesthesia: No NPO: Yes ASA Class: III Final Preanesthetic Review: No Changes in Pt Med Stat, Meds/Allgs Chart Reviewed, Consent Obtained/Reviewed and Anes Risks/Benef Reviewed Patient Risk: Intermediate Procedure Risk: Intermediate Anesthetic Plan Anesthetic Plan: GA Disposition: Standard PACU
--- NOTE | 2023-12-25 13:16 | MHC.SHP ---
Pre-Procedural Eval Section A - 24 Hr Update-Section A only Date of Service: 12/26/23 The patient is an INPATIENT: No Changes since office visit: No Cold of Flu in the past 2 weeks, No New Medical Problems, No Changes in Medication and No Patient answered all questions Section B - Complete if H&P > 30 days Chief Complaint: Calculus of gallbladder without cholecystitis Allergies: Allergies Allergy/AdvReac Type Severity Reaction Status Date / Time bee pollen [BEE STINGS] Allergy Severe SWELLING Verified 11/10/23 13:44 Review of Systems Sugical H&P ROS: Negative: Constitution, Cardiovascular, Respiratory, Neurological, Psychiatric, Hem-Onc, Allergic/Immunologic, Gastrointestinal, Genitourinary, Musculoskeletal, Integumentary, Endocrine and Eyes/Ears/Nose/Throat Exam Surgical H&P Exam: Normal: HEENT, Normal: Heart, Normal: Lungs, Normal: Extremities, Normal: Abdomen, Normal: Skin and Normal: Neurological Plan I have reviewed the history and physical and performed a pertinent physical examination on my patient. No changes have occurred unless specified. Time Spent With Patient Time: Total time managing care of this patient today ____ minutes.
[2023-12-26] VITALS (14 sets, daily range): BP systolic 100–124; BP diastolic 59–69; PULSE 49–89; RESP 12–16; TEMP 36.1–36.3; O2SAT 96–100; BMI 39.5
[2023-12-26 10:40] LABS: UPreg QC Valid YES; Urine Pregnancy NEGATIVE (NEGATIVE)
[2023-12-26] MEDS: Lactated Ringers 1,000 ML 100 ML IVCONT (11:05)
--- NOTE | 2023-12-26 11:57 | P.OP_ITS ---
Operative Note Operative Note Date of Service: 12/26/23 Narrative: Preoperative diagnosis: [] Symptomatic gallbladder Postop diagnosis: [] The same Procedure [] laparoscopic cholecystectomy Surgeon: [] Gabe [employer] Operator: [] Tracy Type of Anesthesia: [] General Indication for surgery: [] Corpulent abdomen. Gallbladder with omental adhesions to it. Intrahepatic gallbladder. Findings: [] Patient brought to the operating room, placed on operative table supine position, after an adequate level of general anesthesia was induced, the patient's abdomen was prepped and draped in usual sterile fashion using a supraumbilical curvilinear incision, Fernando technique was used to insufflate abdominal cavity to 15 mm of CO2. Upper midline and right subcostal ports were placed under direct laparoscopic view, the patient placed in reverse Trendelenburg position, tilted to the left. Findings were as noted above. Gallbladder was grasped using laparoscopic graspers, and retracted superiorly and laterally. Omental adhesions swept off the gallbladder with the hilum was approached. Cystic artery and cystic duct were each identified, circumferentially skeletonized, traced directly into the gallbladder, and critical view obtained. Each was clipped proximally x2, distally x1, and transected. Gallbladder which was moderately intrahepatic was then cauterized in the gallbladder fossa using Bovie. Specimen was placed in an Endo-Catch bag, a retrieved through the umbilical port. Abdominal cavity was copiously irrigated and secured hemostasis. All ports removed under direct laparoscopic view. Wounds were closed in the following manner; umbilical wound is fascia reapproximated using interrupted 0 Vicryl sutures. Skin wounds were closed using subcuticular 4-0 Vicryl sutures followed by Steri-Strips and sterile dressings. Wounds were infiltrated 0.5% Marcaine at completion. Sponge, needle, and instrument counts were reported correct. Patient tolerated the procedure well and emerged from anesthesia stable condition. EBL minimal
[2023-12-26] MEDS: ondansetron HCL 4 MG/2 ML VIAL IVPUSH (12:39)
[2023-12-26] MEDS: HYDROmorphone HCl 0.5 MG/0.5 ML SYRINGE 0.25 MG IVPUSH (12:46)
[2023-12-26] MEDS: Haloperidol Lactate 5 MG/ML VIAL 1 MG IVPUSH (13:15)
== END 2023-12-26 15:16 | disposition home or self-care (01) ==
PROVIDERS: Nurse Practitioner; PCP Internal Medicine; Visit Provider Surgery
PROC: 0FT44ZZ Resection of Gallbladder, Percutaneous Endoscopic Approach (ICD-10-PCS; CPT 47562; principal; 2023-12-26 11:30)
DX: K80.10 Calculus of gallbladder with chronic cholecystitis without obstruction (principal); K82.8 Other specified diseases of gallbladder; Q44.1 Other congenital malformations of gallbladder; E78.5 Hyperlipidemia, unspecified; R53.83 Other fatigue; J45.909 Unspecified asthma, uncomplicated; G47.33 Obstructive sleep apnea (adult) (pediatric); F90.9 Attention-deficit hyperactivity disorder, unspecified type; F41.9 Anxiety disorder, unspecified
CPT/HCPCS: 47562; 81025; 88304; J0690; J1100; J1170; J1630; J2250; J2405; J2704; J3010

== ENCOUNTER → 2023-12-26 09:45 | Outpatient (BNV) | payer OTHER, SELFPAY | PROVIDERS: PCP Internal Medicine; Visit Provider Surgery | DX: K80.20 Calculus of gallbladder without cholecystitis without obstruction (principal) | CPT/HCPCS: 47562 ==

== ENCOUNTER 2024-01-06 08:49 | Outpatient (AMB) | payer OTHER, SELFPAY ==
--- NOTE | 2024-01-06 08:56 | MHC.OFFVIS ---
Intake Visit Reasons: s/p lap anthony possible open Intake Note: Patient here s/p lap anthony on 12-26-2023. Reports incision healing well. Patient c/o: no concerns. No longer taking rx pain meds. Sheather Required: No Accompanied by: Self / Same As Patient Allergies bee pollen [BEE STINGS] Allergy (Severe, Verified 01/06/24 08:59) SWELLING HPI Comments Details: Status post laparoscopic cholecystectomy. Patient is doing quite well. She is tolerating a diet. He is having regular bowel habits. She has minimal incisional discomfort. She is increasing her activity level. [facility] Medical History Sleep apnea ADHD Cholelithiasis Abdominal pain Anxiety Fatigue Tremor Hyperlipidemia Asthma Surgical History H/O foot surgery Family History Father No problems noted. Mother No problems noted. Brother No problems noted. Sister No problems noted. Other Substance use disorder Social History Housing: House Are you a primary assurance services manager health care to a significant other at home: No Do you presently have visiting nurse or other home services: No Alcohol intake: current Alcohol intake frequency: holidays/special occasions only Patient Tobacco Use Status: Never used Tobacco e-Cigarette/Vaping Use: Never Used service: No Current occupational status: employed Sexual orientation: Straight/Heterosexual Gender identity: Female Cognitive needs: No Hearing needs: No Vision needs: Yes Female Reproductive History Menstrual Age of Menarche: 14 Physical Exam Eyes Other: Anicteric GI Other: Abdomen is soft. All wounds clean dry and intact healing very well Assessment & Plan Assessment & Plan (1) Status post laparoscopic cholecystectomy: Code(s): Z90.49 - Acquired absence of other specified parts of digestive tract Category: Medical Plan Patient was been given local instructions, and will otherwise follow-up p.r.n.. All questions answered. Coding Level of Care Code Global (40747) Diagnoses Status post laparoscopic cholecystectomy Z90.49
== END 2024-01-06 09:20 | disposition home or self-care (01) ==
PROVIDERS: PCP Internal Medicine; Visit Provider Surgery
DX: Z90.49 Acquired absence of other specified parts of digestive tract (principal)
CPT/HCPCS: 99024

== ENCOUNTER → 2024-01-06 08:49 | Outpatient (BNVA) | payer OTHER, SELFPAY | PROVIDERS: PCP Internal Medicine; Visit Provider Surgery ==

== ENCOUNTER 2024-06-02 15:46 | Outpatient (REF) | payer BC, SELFPAY ==
--- OUTSIDE RECORDS SUMMARY | 2024-06-02 19:33 | XMS_ITS | Clinical Summary ---
Author Organization [facility] Address [address] [place] [address] Phone Care Team Providers Care Drug Safety Physician Name Role Phone Yary Espinal MD Primary Care Provider Unava ilable Active Problems Problem Noted Date Diagnosed Date Bunion Overview (04/15/2017): Had R bunion repair surgery 05/2015 at [facility] with good result. May need to [...] *Heart Disease, No family history of *Sudden /ME under 55, Family history of Cancer - [...] complete this topic Procedures * Due to [place] [employer] law, this organization might not be sharing sensitive test results. Procedure Name Priority Date/Time Associated Diagnosis Comments CHLAMYDIA AND GONORRHEA, AMPLIFIED Routine 10/05/2015 2:02 PM EDT from Last 3 Months or Most Recently Relevant to Health Maintenance Results * Due to [place] [employer] law, this organization might not be sharing sensitive test results. * Chlamydia and Gonorrhoea, Amplified (10/05/2015 2:02 PM EDT) [facility] URINE GC AMP PROBE NEGATIVE [facility] Comment: No Neisseria Gonorrhoeae RNA detected in this patient's sample (REFERENCE RANGE/NORMAL VALUE: NOT DETECTED) NOTE: This test uses pipe stem sawyer-mediated amplification method to detect rRNA from C.Trachomatis [...] without risk of sexual abuse. Consult the [facility] [place] if needed. Contact phone number . Therapeutic failure or success cannot be determined with the Aptima Combo2 assay since nucleic acid may persist following appropriate antimicrobial therapy. The Centers for Disease Control and Prevention (CDC) recommends confirmatory retesting using culture or a different nucleic acid amplification test when positive results occur, if indicated. Testing performed or reported by [facility], a Service of [facility], [address] [place] [address] CLIA ??[id number] Luca Luo MD, PhD, Soil Sampler URINE CHLAMYDIA AMP PROBE NEGATIVE [facility] Comment: No Chlamydia Trachomatis RNA detected in this patient's sample (REFERENCE RANGE/NORMAL VALUE: NOT DETECTED) 10/05/2015 2:02 PM EDT Narrative [facility] - 10/05/2015 2:02 PM EDT URINE CHLAMYDIA GC AMP PROBE us Yary Espinal MD LAB MICROBIOLOGY - GENERAL O RDERABLES Final Result [facility] [address] [place] [address], [place] from Last 3 Months or Most Recently Relevant to Health Maintenance Care Teams Drug Safety Physician Relationship Specialty Start Date End Date Yary Espinal MD PCP - General 11/08/16
--- OUTSIDE RECORDS SUMMARY | 2024-06-02 19:33 | XMS_ITS | Encounter Summary ---
Author Organization [facility] Address [address] [place] [address] Phone Care Team Providers Care Flight Crew Time Clerk Name Role Phone Yary Espinal MD Primary Care Provider Unava ilable Encounter Details Date Type Department Care Team (Late st Contact Info) Description 11/14/2016 Conversion Encounter [facility] - [address] [address] Social History Tobacco Use Types Packs/Day Years [...] on filedocumented in this encounter Care Teams Flight Crew Time Clerk Relationship Specialty Start Date End Date Yary Espinal MD PCP - General 11/08/16 documented as of this encounter
[2024-06-03 17:16] LABS: Bacterial Vaginosis PCR NEGATIVE (Negative); Candida Group PCR NOT DETECTED (Not Detect); Candida glab krusei PCR NOT DETECTED (Not Detect); Trichomonas vaginalis PCR NOT DETECTED (Not Detect)
== END 2024-06-02 15:47 | disposition home or self-care (01) ==
LOC: HO.LNP 15:46
PROVIDERS: PCP Internal Medicine
DX: N89.8 Other specified noninflammatory disorders of vagina (principal)
CPT/HCPCS: 81515

== ENCOUNTER 2024-06-02 15:46 | Outpatient (AMB) | payer BC, SELFPAY ==
--- NOTE | 2024-06-02 15:48 | A.OFFPC_ITS ---
Vital Signs 06/02/24 15:49 06/02/24 16:29 Height 5 ft 1 in Weight 220 lb 6 oz BMI 41.6 BP 124/60 Blood Pressure Location Lt brachial Position Sitting Pulse 146 H 80 Pulse Source Pulse Oximeter Auscultation Temp 97.5 F Temp Source Temporal Artery Scan Pulse Oximetry (%) 92 Oxygen Delivery Method Room Air Intake Visit Reasons: MARINA Dr Hopkins Stitcher Tape Controlled Machine Required: No Accompanied by: Self / Same As Patient Allergies bee pollen [BEE STINGS] Allergy (Severe, Verified 06/02/24 16:03) SWELLING Medication List - Last Reconciled 06/02/24 by Peace Blanco PA-C albuterol sulfate 90 mcg/actuation 2 puffs inhalation Q6H PRN levonorgestrel (Kyleena) 1 device intrauterine ONCE Tobacco use date assessed: 06/02/24 Dental Screening Dental Screen Date: 06/02/24 Did you have a dental visit in the last 12 months?: Yes Did you have a dental problem in the last 6 months where you did not have access to dental care?: No Was dental information given to patient?: Patient has dentist HPI MARINA Dr Hopkins HPI Details 28-year-old female with past medical his tory of fatty liver disease, hyperlipidemia, anxiety, asthma, cholelithiasis last seen 10/[address] Padilla coming in for transfer of care. In review of the notes, patient underwent laparoscopic cholecystectomy 12/26/2023 and was seen postoperatively 01/17 today for doing well advised to follow up as needed. 28-year-old female presenting for transf er of care. She reports a history of gallstones requiring cholecystectomy following ineffective dietary adjustment. Known history of fatty liver disease and elevated cholesterol levels. Patient describes anxiety symptoms and asthma, currently managed with albuterol. Previously treated for plantar warts; symptomatically improved. Suspects PCOS due to symptoms of hair growth, obesity and cecreased libido however past ultrasound did not demonstrate ovarian cysts. Experiences intermittent eczema, primarily in the breast area. Reports recent onset vaginal discharge with odor. 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 [facility] Medical History Hidradenitis suppurativa Sleep apnea ADHD Cholelithiasis Abdominal pain Anxiety Fatigue Tremor Asthma Surgical History Status post laparoscopic cholecystectomy History of cholecystectomy H/O foot surgery Family History Father No problems noted. Mother No problems noted. Brother No problems noted. Sister No problems noted. Other Substance use disorder Social History Housing: House Are you a primary resident care aide to a significant other at home: No Do you presently have visiting nurse or other home services: No Alcohol intake: current Alcohol intake frequency: a few times a week Patient Tobacco Use Status: Never used Tobacco e-Cigarette/Vaping Use: Never Used Substance Use Type: Marijuana service: No Current occupational status: employed Sexual orientation: Straight/Heterosexual Gender identity: Female Cognitive needs: No Hearing needs: No Vision needs: Yes (Glasses) Female Reproductive History Menstrual Age of Menarche: 14 control method: progestin IUCD Questionnaire PHQ-9 Over the last 2 weeks, how often have you been bothered by any of the following problems? 1. Little interest or pleasure in doing things: several days 2. Feeling down, depressed, or hopeless: several days 3. Trouble falling or staying asleep, or sleeping too much: not at all 4. Feeling tired or having little energy: several days 5. Poor appetite or overeating: not at all 6. Feeling bad about yourself - or that you are a failure or have let yourself or your family down: not at all 7. Trouble concentrating on things, such as reading the newspaper or watching television: not at all 8. Moving or speaking so slowly that other people could have noticed. Or the opposite - being so fidgety or restless that you have been moving around a lot more than usual: more than half the days 9. Thoughts that you would be better off or of hurting yourself in some way: not at all Total score: 5 Depression Screening Interpretation: Negative Depression Screening Done: Yes Source: Developed by Drs. Venkatesh Mason, Kristina Fleming, Koko Emmanuel and colleagues, with an educational elliot from [employer] Thrive Questionnaire Date Thrive assessed: 06/02/24 I am a: Patient What is your living situation today?: I have a steady place to live Within the past 12 months, did the food you bought not last and you didn't have the money to get more?: Never true Within the past 12 months, did you worry whether your food would run out before you got money to buy more?: Never true Do you have trouble paying for medicines?: No Do you have trouble getting transportation to medical appointments?: No Do you have trouble paying your heating and electricity bill?: No Do you have trouble taking care of your child, family member or friend?: No Do you have trouble with day-to-day activities such as bathing, preparing meals, shopping, managing finances, etc.?: No Are you currently unemployed and looking for a job?: No Are you interested in more education?: No Please select the resources that you would like help with: None Currently or been in a relationship where the following occur: No concerns reported THRIVE Score: 0 AUDIT C Alcohol Use Questionnaire (AUDIT-C) 1. How often do you have a drink containing alcohol?: 2-4 times a month 2. How many drinks containing alcohol do you have on a typical day when you are drinking?: 1 or 2 3. How often do you have six or more drinks on one occasion?: Never Total Score: 2 DIMAS-7 AMB Questionnaire DIMAS-7 Date DIMAS - 7 assessed: 06/02/24 Feeling nervous, anxious, or on edge: 0 = Not at all Not being able to stop or control worryin = Not at all Worrying too much about different things: 0 = Not at all Trouble relaxin = Not at all Being so restless that it is hard to sit still: 0 = Not at all Becoming easily annoyed or irritable: 0 = Not at all Feeling afraid as if something awful might happen: 0 = Not at all Total DIMAS-7 score (0-4 normal; 5-9 mild; 10-14 moderate; 15-21 severe): 0 Source: Developed by Drs. Venkatesh Mason, Kristina Fleming, Koko Emmanuel and colleagues, with an educational elliot from [employer] Physical exam (Primary Care) Vital Signs: Last Vital Signs Temp 97.5 F 03/05/25 15:49 Pulse 80 06/02/24 16:29 BP 124/60 06/02/24 15:49 Pulse Ox 92 06/02/24 15:49 Oxygen Delivery Method Room Air 06/02/24 15:49 BMI result Body Mass Index 41.6 Tobacco/Smoking Status: Tobacco use Status Tobacco use date assessed 06/02/24 06/02/24 15:51 Patient Tobacco Use Status Never used Tobacco 06/02/24 15:55 e-Cigarette/Vaping Use Never Used 06/02/24 15:55 PHQ-9: PHQ-9 Score PHQ-9: Total score 5 06/02/24 16:09 Depression Screening Interpretation: Negative Thrive Assessment: Date of Thrive Assessment Date Thrive assessed 06/02/24 06/02/24 15:51 Currently or been in a relationship where the following occur: No concerns reported Const General: cooperative, healthy appearing, comfortable and no acute distress Orientation/consciousness: patient oriented x3 HENMT Head: Yes normocephalic Ears: hearing grossly normal bilaterally General nose exam: Normal external nose present Eyes General: appearance normal, both eyes and all related structures Conjunctivae: conjunctivae normal Neck Neck: Yes full ROM and Yes no lymphadenopathy Resp Effort & Inspection: normal respiratory effort Auscultation: clear to auscultation bilaterally, no crackles, no rales, no rhonchi and no wheezes Cardio Rate: regular rate Rhythm: regular rhythm Skin General skin exam: no rashes or lesions noted Neuro General: patient oriented x3 Gait exam (Neuro): Normal gait present Extrem General: Yes normal to inspection, Yes full ROM and No edema Psych Affect: normal affect Attitude: cooperative Insight: Good insight present (Psych) Judgement: Good judgement present (Psych) Coding Level of Care Code Est Pt Level 4 (09719) Diagnoses Hyperlipidemia E78.5 Asthma J45.909 Anxiety F41.9 Tremor R25.1 Fatty liver K76.0 Plantar wart of right foot B07.0 Hirsutism L68.0 Hair loss L65.9 Vaginal discharge N89.8 Dermatitis L30.9 Headache R51.9 Assessment & Plan Assessment & Plan (1) Hyperlipidemia: Code(s): E78.5 - Hyperlipidemia, unspecified Category: Medical Plan: Ordered for updated blood work. (2) Asthma: Code(s): J45.909 - Unspecified asthma, uncomplicated Category: Medical Plan: Asthma currently controlled on present medications. Continue on albuterol as needed. Avoid triggers such as allergies. (3) Anxiety: Code(s): F41.9 - Anxiety disorder, unspecified Category: Medical Plan: Denies the need for medication at this time. Referral placed to counseling (4) Tremor: Code(s): R25.1 - Tremor, unspecified Category: Medical Plan: No tremor visualized on exam. Advised patient to continue to monitor symptoms (5) Fatty liver: Code(s): K76.0 - Fatty (change of) liver, not elsewhere classified Category: Medical Plan: Healthy diet and regular exercise is encouraged. Continue to monitor LFTs (6) Plantar wart of right foot: Comment: sees podiatry Code(s): B07.0 - Plantar wart Category: Medical Plan: Symptomatically has improved and patient previously seeing a survey and mapping technician. She plans to follow up with them as needed. (7) Hirsutism: Code(s): L68.0 - Hirsutism Category: Medical Plan: A systematic approach for the patient's conditions includes laboratory evaluations to investigate hormonal causes underlying PCOS-like symptoms, including thyroid function tests and sex hormone levels. Can consider referral to dermatology. (8) Hair loss: Code(s): L65.9 - Nonscarring hair loss, unspecified Category: Medical Plan: A systematic approach for the patient's conditions includes laboratory evaluations to investigate hormonal causes underlying PCOS-like symptoms, including thyroid function tests and sex hormone levels. Can consider referral to dermatology. (9) Vaginal discharge: Code(s): N89.8 - Other specified noninflammatory disorders of vagina Category: Medical Plan: For the recent vaginal discharge episode, a specimen collection for lab analysis was ordered. (10) Dermatitis: Code(s): L30.9 - Dermatitis, unspecified Category: Medical Plan: Eczema management will continue with topical steroids applied with caution. Continue to use topical emollients such as Eucerin and Aquaphor. (11) Headache: Code(s): R51.9 - Headache, unspecified Category: Medical Plan: Prophylactic measures for frequent headaches include lifestyle modifications emphasizing hydration and ergonomic factors in the workplace. 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 Advised patient is likely due to vision or environmental factors such as the lighting. Advised patient to follow up with eye doctor Plan Patient was informed and verbally consented to the use of an ambient scribe for clinic note documentation during this visit. This note was constructed using voice recognition software. While every effort has been made to ensure accuracy and managed security sales consultant, still areas may have been included sometimes these areas may affect the content or meeting of the given symptoms. Total time spent caring for the patient today was 30 minutes. This includes time spent before the visit reviewing the chart, time spent during the visit, and time spent after the visit and documentation. Orders: Orders Comprehensive Met. Panel 06/02/24 Z00. - Encounter for general adult medical examination without abnormal findings Vitamin B12 and Folate 06/02/24 Z. - Encounter for general adult medical examination without abnormal findings Vitamin D 25-OH Total 06/02/24 Z00.00 - Encounter for general adult medical examination without abnormal findings Estrogen 06/02/24 L68.0 - Hirsutism Bacterial Vaginosis Panel 06/02/24 N89.8 - Other specified noninflammatory disorders of vagina SUSI Reflex Titer and Pattern 06/02/24 L65.9 - Nonscarring hair loss, unspecified, R40.0 - Somnolence Complete Blood Count Auto Diff 06/02/24 Z00. - Encounter for general adult medical examination without abnormal findings TSH reflex Free T4 06/02/24 Z00.00 - Encounter for general adult medical examination without abnormal findings Free T4 (Free Thyroxine) 06/02/24 Z00.00 - Encounter for general adult medical examination without abnormal findings Lipid Panel 06/02/24 E78.00 - Pure hypercholesterolemia, unspecified Referrals Counseling Referral F41.9 - Anxiety disorder, unspecified Medications: New triamcinolone acetonide 0.1% 1 appl topical DAILY 60 mL 0RF
[2024-06-02 15:49] VITALS: BP 124/60; PULSE 146; TEMP 36.4; O2SAT 92; BMI 41.6
[2024-06-02 16:29] VITALS: PULSE 80
--- OUTSIDE RECORDS SUMMARY | 2024-06-02 18:59 | XMS_ITS ---
Author Organization [facility] Address [address] [place] [address] Care Team Providers Care Strategic Sourcing Consultant Name Role Phone Tamela Hopkins MD Primary Care Provider Khushboo Cancino [phone] REASON FOR VISIT Brown Encounters Encounter Location Date Provider Diagnosis [facility] [address] [place] [address] 01/28/2024 Khushboo Guo Plan Of Treatment No Information Progress Notes * Roxy YOUNGER LDOB:1995 (28 yo F)Acc No.[id number]:01/28/2024 Patient:?Roxy Younger :1995???Age:28 Y???Sex:Female Address:[facility] [place], [address] * true * Date:? Generated for Ingridi luke/Saritha/eTransmitting on:?06/02/2024 06:57 PM EST
--- OUTSIDE RECORDS SUMMARY | 2024-06-02 18:59 | XMS_ITS | Data Portability ---
Author Organization [facility], [address] Address [address] [place] [address] Assessment No assessment recorded. Plan of Treatment Reminders Order Date Submit Date Provider Last Modified By Organization Details Last Modified Time Details Appointments None recorded. Lab None recorded. Referral None recorded. Procedures cerumen removal using irrigation (PROC) 2022 023 [email or web address] Not available 07:48:33 Surgeries None recorded. Imaging None recorded. Medication Orders Cortisporin -TC 3.3 mg-3 mg-10 mg-0.5 mg/mL ear drops,suspe nsion 2022 023 [id number], [address], [place], [address], 15:36:08 Patient TargetsNo targets recorded. Patient Instructions Encounter Date Encounter Id Patient Instructions Last Modified By Organization Details Last Modified Time 10/10/2022 [id number] earache: care instructions [email or web address] Not available 10/10/2022 15:36:06 ear infection (otitis media): care instructions [email or web address] Not available 10/10/2022 15:36:06 Based on your exam you have cerumen impaction. A build up of too much wax. This can cause you hearing loss, clogged hearing, and sometimes pain. We attempted to remove the wax from your ear, and hopefully we were successful in helping you. If you have any of the following symptoms please return for a reevaluation. 1. Bleeding from the ears 2. Ear pain when you touch the ear. 3. Discharge from the ear 4. Redness of the skin. These could all indicate an infection has developed as a result of ear flushing. If we were unsuccessful - then I would start Debrox drops in the ear for the next 1 week and then you can return and we can try again. If you feel like you have water in your ear - put a few drops of rubbing alcohol in your ear. Do not use peroxide this may make that sensation worse. Thank you for using [facility] - Please don't hesitate to call us if you have any questions or concerns. [email or web address] Not available 10/10/2022 15:37:23 Reason for Referral None Reported. Problems No Known Problems Procedures Surgical History Date Name Laterality Status Provider Name and Address Organization Details Recorded Time Cerumen Removal by Irrigation completed Ligia LOPEZ - [facility] 10/10/2022 15:24:48 Imaging Results None recorded. Procedure Notes None recorded. Medical Equipment None Reported. Allergies No known drug allergies Medications Name Sig Start Date Stop Date Status Note LastModified by Organization Details LastModified Time clotrimazole- betamethasone 1 %-0.05 % topical cream 1 APPL TOPICALLY 2 TIMES A DAY FOR 2 WEEKS active Not Available Not Available No t Available Cortisporin-T C 3.3 mg-3 mg-10 mg-0.5 mg/mL ear drops,suspens ion Instill 3 drops 3 times a day by otic route as directed for 7 days. 2022 active Not Available Not Available Not Avai lable escitalopram 20 mg tablet TAKE 1 TABLET BY MOUTH DAILY FOR MOOD/ANXIE TY active Not Available Not Available No t Available aripiprazole 10 mg tablet TAKE 1/2 TABLET BY MOUTH EVERY MORNING FOR 7 DAYS THEN 1 TABLET BY MOUTH EVERY MORNING FOR MOOD active Not Available Not Available No t Available atomoxetine 40 mg capsule TAKE 1 CAPSULE BY MOUTH EVERY AM X 7 DAYS THEN 2 CAPSULES EVERY AM UNTIL NEXT VISIT active Not Available Not Available No t Available bupropion HCl XL 300 mg 24 hr tablet, extended release TAKE 1 TABLET BY MOUTH EVERY MORNING FOR MOOD active Not Available Not Available No t Available bupropion HCl XL 150 mg 24 hr tablet, extended release TAKE 1 TABLET BY MOUTH EVERY MORNING active Not Available Not Available No t Available Vitals Date Recorded Body weight Body mass index (BMI) Body height Pain severity - 0-10 verbal numeric rating [Score] - Reported Oxygen saturation Oxygen saturation in Arterial blood by Pulse oximetry Heart rate Respiratory rate Body temperature Systolic blood pressure Diastolic blood pressure Provider Name and Address Organization Details Last Updated DateTime 3 56664.3 2 g 41.6 kg/m2 154.94 cm 5 95 % 95 % 67 /min 18 /min 97.9 [degF] 116 mm[Hg] 78 mm[Hg] Ligia Pompa PA - [facility] 3 14:22:38 Social History Question Answer Notes LastModified by Organizat ion Details LastModified Time Tobacco Smoking Status Never Smoker Ligia rees PA - [facility] 10/10/2022 14:20:50 What Is Your Level Of Alcohol Consumption? Occasional Information not available 10/10/2022 Which Illicit Or Recreational Drugs Have You Used? Marijuana Information not available 10/10/2022 Have You Had Direct Contact, Or Contact During Intimacy, With Monkeypox Rash, Scabs, Or Body Fluids From A Person With Monkeypox? No Information not available 10/10/2022 Do You Use Any Illicit Or Recreational Drugs? Yes Information not available 10/10/2022 Have You Recently Traveled Abroad? No Information not available 10/10/2022 Do You Or Have You Ever Used Any Other Forms Of Tobacco Or Nicotine? No Information not available 10/10/2022 Sex: Unknown Functional Status None recorded. Mental Status None recorded. Family History Relationship Description Onset Age of this Age Resolved Age Notes LastModified by Organization Details LastModified Time Father No current problems or disability Not available 10/10 14:20:40 Mother No current problems or disability Not available 10/10 14:20:40 Medical History No medical history recorded. Gynecological History Statement/Question Response Date of LMP 09/16/2022 Is there any chance of ? No LMP Approximate Obstetrics History GPAL:G 0 P 0 0 0 0 Immunizations Vaccine Type Date Status Note Provider Nam e and Address Organization Details Recorded Time Influenza, split virus, quadrivalent, preservative 6 completed Ligia rees PA - [facility] 10/10/2022 14:20:33 Influenza, MDCK, quadrivalent, PF 2 completed Ligia Aletha null, PA - [facility] 10/10/2022 14:20:33 COVID-19, mRNA, LNP-S, PF, 100 mcg/0.5mL dose or 50 mcg/0.25mL dose 1 completed Ligia Fernwood null, PA - [facility] 10/10/2022 14:20:33 COVID-19, mRNA, LNP-S, PF, 100 mcg/0.5mL dose or 50 mcg/0.25mL dose 1 completed Ligia Aletha null, PA - [facility] 10/10/2022 14:20:33 COVID-19, mRNA, LNP-S, PF, 100 mcg/0.5mL dose or 50 mcg/0.25mL dose 2 completed Ligia Fernwood null, PA - [facility] 10/10/2022 14:20:33 COVID-19, mRNA, LNP-S, PF, 100 mcg/0.5mL dose or 50 mcg/0.25mL dose 1 completed Ligia Fernwood null, PA - [facility] 10/10/2022 14:20:33 COVID-19, mRNA, LNP-S, bivalent, PF, 50 mcg/0.5 mL or 25mcg/0.25 mL dose 2 completed Ligia Aletha null, PA - [facility] 10/10/2022 14:20:33 Hep A, ped/adol, 2 dose 6 completed Ligia Aletha null, PA - [facility] 10/10/2022 14:20:33 meningococcal MCV4P 6 completed Ligia Aletha null, PA - [facility] 10/10/2022 14:20:33 Influenza, split virus, quadrivalent, PF 0 completed Ligia Fernwood null, PA - [facility] 10/10/2022 14:20:33 Influenza, split virus, quadrivalent, PF 5 completed Ligia Aletha null, PA - [facility] 10/10/2022 14:20:33 Influenza, split virus, quadrivalent, PF completed JOHN Jones - [facility] 10/10/2022 14:20:33 Past Encounters Encounter ID Performer Location Encounter Start Date Encounter Closed Date Diagnosis/Indication Diagnosis SNOMED-CT Code Diagnosis ICD10 Code Diagnosis Note [id number] [address] [place] [address] 03/31/2021 17:14:13 03/31/2021 19:18:11 [id number] JOHN WERNER [address] [place] [address] 10/10/2022 14:13:14 10/10/2022 15:38:27 Impacted cerumen in right ear [id number] 371602 H61.21 Health Concerns Section Related Observation LastModified by Organization Detai ls LastModified Time None Recorded Concern Status LastModified by Organization Details LastModified Time None Recorded Advance Directives Directive None Recorded Payers Encounter Date Sequence Insurance Name Policy Number Policy Chahal Covered Member ID Chahal Member ID Guarantor Name 03/31/2021 1 [facility]LY [facility] [id number] Roxy Jean Baptiste [id number] Roxy Rodriguesin 10/10/2022 1 [facility]LY [facility] [id number] Roxy Jean Baptiste [id number] Roxy Jean Baptiste Notes Date Note Type Note Provider Name and Address Organization Details Recorded Time 10/10/2022 text/html Ear Pain Brief HPIReported bypatient.Notes:26 y.o female pt presents with clogged right ear x 1 day. Pt has been swimming. She denies pain, or discharge. JOHN YI [address] [place], [address], PA - [facility] 10/10/2022 15:38:57 OBGyn Episode No OBEpisode recorded.
--- OUTSIDE RECORDS SUMMARY | 2024-06-02 18:59 | XMS_ITS ---
Author Organization [facility] Address [address] [place] [address] Care Team Providers Care Landscape Crew Leader Name Role Phone Tamela Hopkins MD Primary Care Provider Khushboo Cancino [phone] REASON FOR VISIT SD Reschedule/Cancel Encounters Encounter Location Date Provider Diagnosis [facility] [address] [place] [address] 03/16/2024 Khushboo Guo Plan Of Treatment No Information Progress Notes * Roxy YOUNGER LDOB:1995 (28 yo F)Acc No.[id number]:03/16/2024 Patient:?Roxy YOUNGER :1995???Age:28 Y???Sex:Female [address] [place], [address] * true * Date:? Generated for Ingridi luke/Saritha/eTransmitting on:?06/02/2024 06:58 PM EST
--- OUTSIDE RECORDS SUMMARY | 2024-06-02 18:59 | XMS_ITS ---
Author Organization [facility] Address [address] [place] [address] Care Team Providers Care Mower Sharpener Name Role Phone Tamela Hopkins MD Primary Care Provider Khushboo Cancino [phone] Medications Medication SIG (Take, Route, Fr equency, Duration) Notes Start Date End Date Status Kyleena 19.5 MG as directed Intrauterine Active Albuterol Sulfate HFA Active Encounters Encounter Location Date Provider Diagnosis [facility] [address] [place] [address] 03/16/2024 Khushboo Guo Plan Of Treatment No Information Progress Notes * Roxy YOUNGER LDOB:1995 (28 yo F)Acc No.[id number]:03/16/2024 Progress Notes Patient:?Roxy YOUNGER Provider:?Khushboo Guo DPM :1995???Age:28 Y???Sex:Female D ate:03/16/2024 Address:[facility] [place] Pcp:Tamela Hopkins MD Subjective: * Chief Complaints: * ??? * HPI: ???Wart:?Pt States Last PCP Visit:?Date:?09/14/2023 * Medical History:? * Medications:?Taking Kyleena 19.5 MG Intrauterine Device as directed Intrauterine , Taking Albuterol Sulfate HFA Objective: * Vitals:? Assessment: Plan: * Treatment: * Images: * The named appointment provid er may or may not be the originator of this progress note, and it is not deemed complete until electronically signed by the appointment provider. Sign off status: Pending * Provider:?Khushboo Guo DPM Date:? Generated for Joseph butler/Saritha/Ghazal on:?06/02/2024 06:58 PM EST History and Physical Notes * HPI (History of Present Illness) Category Sub-Category Detail Notes Category Not es Wart Pt States Last PCP Visit: Date:: 09/14/2023
--- OUTSIDE RECORDS SUMMARY | 2024-06-02 18:59 | XMS_ITS | Encounter Summary ---
Author Organization [facility] Address [address] [place] [address] Phone Care Team Providers Care Chopped Strand Operator Name Role Phone Yary Espinal MD Primary Care Provider Unava ilable Encounter Details Date Type Department Care Team (Late st Contact Info) Description 11/14/2016 Conversion Encounter [facility] - [address] [address] Social History Tobacco Use Types Packs/Day Years Used Date Smoking Tobacco: Never Comments:Never smoker Comments Unknown Sex and Gender Information Value Date Recorded Sex Assigned at Not on file Legal Sex Female 5:01 PM EDT Gender Identity Not on file Sexual Orientation Not on file documented as of this encounter Plan of Treatment Not on file documented as of this encounter Visit Diagnoses Not on filedocumented in this encounter Care Teams Chopped Strand Operator Relationship Specialty Start Date End Date Yary Espinal MD PCP - General 11/08/16 documented as of this encounter
--- OUTSIDE RECORDS SUMMARY | 2024-06-02 18:59 | XMS_ITS | Patient Health Record ---
Author Organization [facility] Address [address] [place] [address] Care Team Providers Care Chief Science Officer Name Role Phone Tamela Hopkins MD Primary Care Provider Unavaila jaquan Guo Khushboo Unavailable [phone] WoodallDragan Unavailable [phone] Allergies Allergen (clinical drug ingredient) Drug/Non Drug Allergy documented on EMR Reaction Allergy Type Onset Date Status Bee Sting Unknown Allergy Active Reason For Referral No Information Medications Medication SIG (Take, Route, Fr equency, Duration) Notes Start Date End Date Status Kyleena 19.5 MG as directed Intrauterine Active Albuterol Sulfate HFA Active Social History Alcohol Screen Question Answer Notes Did you have a drink containing alcohol in the p ast year? Yes Points 0 Interpretation Negative Tobacco use other than smoking: Question Answer Notes Are you an other tobacco user? No Problems Problem Type SNOMED Code ICD Code Onset Dates Problem Status W/U Status Risk Notes Problem Acquired hallux valgus (37186094) Hallux valgus (acquired), left foot (M20.12) Active confirmed Problem Plantar wart (91121429) Plantar wart (B07.0) Active confirmed Problem Acquired hallux valgus (70678968) Hallux valgus (acquired), right foot (M20.11) Active confirmed Problem 41085790 Pes planus of right foot (M21.41) Active confirmed Problem 15810508 Pes planus of left foot (M21.42) Active confirmed Problem 9438955 Tailors bunion (M20.10) Active confirmed Vital Signs Blood pressure diastolic 70 mm Hg 01/08/2024 Height 5ft1in in 01/28/2024 Blood pressure systolic 120 mm Hg 01/08/2024 Weight 215 lbs 01/28/2024 BMI 40.62 kg/m2 01/28/2024 Encounters Encounter Location Date Provider Diagnosis [address] [address] 12/15/2023 Dragan Woodall Other viral warts B07.8 ; Pain in right foot M79.671 and Skin disease L98.[address] [address] 01/08/2024 Dragan Woodall Other viral warts B07.8 ; Pain in left foot M79.672 and Pain in right foot M79.[address] [address] 01/28/2024 Khushboo Guo Right foot pain M79.671 and Plantar wart B07.[address] [address] 09/01/2023 Khushboo Guo [address] [address] 12/09/[address] [address] 12/15/[address] [address] 01/28/2024 Khushboo Guo [address] [address] 03/16/2024 Khushboo Guo Assessments Encounter Date Diagnosis (ICD Code) Assessment Notes Treatment Notes Treatment Clinical Notes Section Notes 12/15/2023 Other viral warts (ICD-10 - B07.8) 01/08/2024 Other viral warts (ICD-10 - B07.8) 01/08/2024 Pain in left foot (ICD-10 - M79.672) 01/28/2024 Right foot pain (ICD-10 - M79.671) 01/28/2024 Plantar wart (ICD-10 - B07.0) 01/08/2024 Pain in right foot (ICD-10 - M79.671) 12/15/2023 Pain in right foot (ICD-10 - M79.671) 12/15/2023 Skin disease (ICD-10 - L98.9) Plan Of Treatment No Information Insurance Providers Payer Name Payer Address Payer Phone Subscriber Number Group Number Insured Name Patient Relationship to Insured Coverage Start Date Coverage End Date [facility] [address] [place] [address] [phone] [id number] Roxy Jean Baptiste Self - patient is the insured Medical (General) History Medical History History ICD Code Back,Hip,and Knee pain Anxiety asthma Broken bones covid-19 Depression Gall bladder problems Liver disease Warts Joint implants/screws Surgical History Surgery Date(Month/Year) bunionectomy benign tumor removal in breast 2019 gall 12/26/2023
--- OUTSIDE RECORDS SUMMARY | 2024-06-02 18:59 | XMS_ITS | Clinical Summary ---
Author Organization [facility] Address [address] [place] [address] Phone Care Team Providers Care Band Teacher Name Role Phone Yary Espinal MD Primary Care Provider Unava ilable Active Problems Problem Noted Date Diagnosed Date Bunion Overview (04/15/2017): Had R bunion repair surgery 05/2015 at [facility] with good result. May need to have left foot done in the future. Immunizations Immunization Administration Dates Next Due DTaP, Unspecified 04/09/1999, 9,05/09/1998,03/13,01/16/1998 H1N1 03/16/2009 HPV 12/13/2011,02/12/2011,12/11/2010 Hep A, ped/adol 10/04/2015,12/09/2013 Hep B, ped/adol 10/03/1998,01/16/1998,1997 Hib (HbOC) 10/03/1998, 9,01/16/1998,12/01 Influenza Split 12/13/2011, 1,11/29/2009,02/11 Influenza, injectable, quadrivalent 01/04/2016 Influenza, injectable, quadr ivalent, preservative free 12/22/2014,12/09/2013 MMR 12/12/2003,12/18/1998 Meningococcal Conj (Menactra) MCV4P 01/04/2016 Meningococcal Conjugate 12/07/2008 Polio 04/09/1999, 9,03/13/1998,01/16 Tdap 12/07/2008 Varicella 12/07/2007,12/18/1998 Family History Relation Name Status Comments Brother Brother: ADD/AD HD Father Father: Cancer -lymphoma, Mother Alive Mother: Alive a nd well Other Family history of *Heart Disease, No family history of *Sudden /SD under 55, Family history of Cancer - breast , lung , cervi, Family history of Obesity, No family history of Deafness, Family history of Migraines, Family history of *Dental caries, Family history of Asthma, No family history of Developmental dislocation of hip, Family history of Hyperlipidemia, No family history of *Thrombophilia, Family history of Strabismus, Family history of *CVA/Stroke, Family history of Diabetes mellitus Sister Sister: ADD/ADH D Social History Tobacco Use Types Packs/Day Years Used Date Smoking Tobacco: Never Comments:Never smoker Comments Unknown Sex and Gender Information Value Date Recorded Sex Assigned at Not on file Legal Sex Female 5:01 PM EDT Gender Identity Not on file Sexual Orientation Not on file Last Filed Vital Signs Vital Sign Reading Time Taken Comments Blood Pressure 109/62 03/29/2016 12:00 AM EST Pulse 98 03/29/2016 12:00 AM EST Temperature 36.6 ??C (97.8 ??F) 03/29/2016 1 2:00 AM EST Respiratory Rate - - Oxygen Saturation - - Inhaled Oxygen Concentration - - Weight 71.1 kg (156 lb 12.8 oz) 016 12:00 AM EST Height 156.2 cm (5' 1.5 ) 03/29/2016 12 :00 AM EST Body Mass Index 29.15 03/29/2016 12:00 AM EST Plan of Treatment Health Maintenance Due Date Last Done Comments Consider Men B Vaccine (1 of 2 - Bexsero 2-dose series) 2013 DTaP,Tdap,and Td Vaccines (6 - Td or Tdap) 12/07/2018 12/07/2008, 04/09/1999, 10/03/1998, Additional history exists Influenza Vaccines (#1) 2023 01/04/20 16, 12/22/2014, 12/09/2013, Additional history exists COVID-19 Vaccine ( season) 2023 HIB Vaccines Aged Out 10/03/1998, 05/01, 01/16/1998, Additional history exists No longer eligible based on patient's age to complete this topic Hepatitis B Vaccines Completed 10/03/1998, 01/16/1998, 1997 IPV Vaccines Completed 04/09/1999, 11/1998, 03/13/1998, Additional history exists MMR Vaccines Completed 12/12/2003, 12/18/1998 Varicella Vaccines Completed 12/07/2007, 12/18/1998 HPV Vaccines Completed 12/13/2011, 01/29, 12/11/2010 Hepatitis A Vaccines Completed 10/04/2015, 12/10/19 14 Meningococcal Vaccine Completed 01/04/2016, 009 Men B Vaccine Aged Out No longer elig ible based on patient's age to complete this topic Pneumococcal Vaccine Aged Out No long er eligible based on patient's age to complete this topic Procedures * Due to [place] [employer] law, this organization might not be sharing sensitive test results. Procedure Name Priority Date/Time Associated Diagnosis Comments CHLAMYDIA AND GONORRHEA, AMPLIFIED Routine 10/05/2015 2:02 PM EDT from Last 3 Months or Most Recently Relevant to Health Maintenance Results * Due to [place] [employer] law, this organization might not be sharing sensitive test results. * Chlamydia and Gonorrhoea, Amplified (10/05/2015 2:02 PM EDT) [facility] URINE GC AMP PROBE NEGATIVE [facility] Comment: No Neisseria Gonorrhoeae RNA detected in this patient's sample (REFERENCE RANGE/NORMAL VALUE: NOT DETECTED) NOTE: This test uses cooling machine operator-mediated amplification method to detect rRNA from C.Trachomatis and N.Gonorrhoeae. A negative result does not preclude infection. In the case of a negative urine result, testing of an endocervical(female) or urethral(male) specimen is recommended if there is high clinical suspicion of infection. The performance characteristics of this test have not been evaluated in children. The Aptima Combo2 assay is not intended for the evaluation of suspected sexual abuse or for other medico-legal indications. The ordering provider should assess if the patient had consensual sex without risk of sexual abuse. Consult the [facility] [place] if needed. Contact phone number . Therapeutic failure or success cannot be determined with the Aptima Combo2 assay since nucleic acid may persist following appropriate antimicrobial therapy. The Centers for Disease Control and Prevention (CDC) recommends confirmatory retesting using culture or a different nucleic acid amplification test when positive results occur, if indicated. Testing performed or reported by [facility], a Service of [facility], [address] [place] [address] CLIA ??[id number] Luca Luo MD, PhD, Plaster Die Maker URINE CHLAMYDIA AMP PROBE NEGATIVE [facility] Comment: No Chlamydia Trachomatis RNA detected in this patient's sample (REFERENCE RANGE/NORMAL VALUE: NOT DETECTED) 10/05/2015 2:02 PM EDT Narrative [facility] - 10/05/2015 2:02 PM EDT URINE CHLAMYDIA GC AMP PROBE us Yary Espinal MD LAB MICROBIOLOGY - GENERAL O RDERABLES Final Result [facility] [address] [place] [address], [place] from Last 3 Months or Most Recently Relevant to Health Maintenance Care Teams Band Teacher Relationship Specialty Start Date End Date Yary Espinal MD PCP - General 11/08/16
== END 2024-06-02 16:39 | disposition home or self-care (01) ==
PROVIDERS: PCP Internal Medicine
DX: E78.5 Hyperlipidemia, unspecified (principal); J45.909 Unspecified asthma, uncomplicated; F41.9 Anxiety disorder, unspecified; R25.1 Tremor, unspecified; K76.0 Fatty (change of) liver, not elsewhere classified; B07.0 Plantar wart; L68.0 Hirsutism; L65.9 Nonscarring hair loss, unspecified; N89.8 Other specified noninflammatory disorders of vagina; L30.9 Dermatitis, unspecified; R51.9 Headache, unspecified

== ENCOUNTER 2024-06-08 06:51 | Outpatient (REF) | payer BC, SELFPAY ==
--- OUTSIDE RECORDS SUMMARY | 2024-06-08 06:54 | XMS_ITS ---
Author Organization [facility] Address [address] [place] [address] Care Team Providers Care Principal Architectural Firm Name Role Phone Tamela Hopkins MD Primary Care Provider Khushboo Cancino [phone] REASON FOR VISIT SD Reschedule/Cancel Encounters Encounter Location Date Provider Diagnosis [facility] [address] [place] [address] 03/16/2024 Khushboo Guo Plan Of Treatment No Information Progress Notes * Roxy YOUNGER LDOB:1995 (28 yo F)Acc No.[id number]:03/16/2024 Patient:?Roxy YOUNGER :1995???Age:28 Y???Sex:Female Address:[address] [place], [place] [address], [address] * true * Date:? Generated for Printi ng/Fadiallog/eTransmitting on:?06/08/2024 06:54 AM EDT
--- OUTSIDE RECORDS SUMMARY | 2024-06-08 06:54 | XMS_ITS | Data Portability ---
Author Organization [facility], [address] Address [address] [place] [address] Assessment No assessment recorded. Plan of Treatment [...] mg-0.5 mg/mL ear drops,suspe nsion 2022 023 [id number], [address] [facility], [place], [address], 15:36:08 Patient TargetsNo targets recorded. Patient Instructions Encounter Date Encounter Id Patient Instructions Last Modified By Organization Details Last Modified Time 10/10/2022 [id number] earache: care instructions [email or web address] Not available 10/10/2022 15:36:06 ear infection (otitis media): care instructions [email or web address] Not available 10/10/2022 15:36:06 Based on your [...] if you have any questions or concerns. [email or web address] Not available 10/10/2022 15:37:23 Reason for Referral [...] Address Organization Details Last Updated DateTime 3 49955.3 2 g 41.6 kg/m2 154.94 cm 5 [...] 14:20:33 Influenza, MDCK, quadrivalent, PF 2 completed Lgiia Attica null, [place] - [facility] 10/10/2022 14:20:33 COVID-19, mRNA, LNP-S, PF, 100 mcg/0.5mL dose or 50 mcg/0.25mL dose 1 completed Ligia Aletha null, [place] - [facility] 10/10/2022 14:20:33 COVID-19, mRNA, LNP-S, PF, 100 mcg/0.5mL dose or 50 mcg/0.25mL dose 1 completed Ligia Attica null, [place] - [facility] 10/10/2022 14:20:33 COVID-19, mRNA, LNP-S, PF, 100 mcg/0.5mL dose or 50 mcg/0.25mL dose 2 completed Ligia Aletha null, [place] - [facility] 10/10/2022 14:20:33 COVID-19, mRNA, LNP-S, PF, 100 mcg/0.5mL dose or 50 mcg/0.25mL dose 1 completed Ligia Aletha null, [place] - [facility] 10/10/2022 14:20:33 COVID-19, mRNA, LNP-S, bivalent, PF, 50 mcg/0.5 mL or 25mcg/0.25 mL dose 2 completed Ligia Attica null, [place] - [facility] 10/10/2022 14:20:33 Hep A, ped/adol, 2 dose 6 completed Ligia Aletha null, [place] - [facility] 10/10/2022 14:20:33 meningococcal MCV4P 6 completed Ligia Aletha null, [place] - [facility] 10/10/2022 14:20:33 Influenza, split virus, quadrivalent, PF 0 completed Ligia Aletha null, PA - [facility] 10/10/2022 14:20:33 Influenza, split virus, quadrivalent, PF 5 completed Ligia Aletha null, [place] - [facility] 10/10/2022 14:20:33 Influenza, split virus, quadrivalent, PF completed JOHN Jones - [facility] 10/10/2022 14:20:33 Past Encounters Encounter ID Performer Location Encounter Start Date Encounter Closed Date Diagnosis/Indication Diagnosis SNOMED-CT Code Diagnosis ICD10 Code Diagnosis Note [id number] [address] [place] [address] 03/31/2021 17:14:13 03/31/2021 19:18:11 [id number] JOHN WERNER [address] [place] [address] 10/10/2022 14:13:14 10/10/2022 15:38:27 Impacted cerumen in right ear 2072627761 116424 H61.21 Health Concerns Section Related Observation LastModified by Organization Detai ls LastModified Time None Recorded Concern Status LastModified by Organization Details LastModified Time None Recorded Advance Directives Directive None Recorded Payers Encounter Date Sequence Insurance Name Policy Number Policy Chahal Covered Member ID Chahal Member ID Guarantor Name 03/31/2021 1 [facility] [id number] Roxy Jean Baptiste [id number] Roxy Rodriguesin 10/10/2022 1 [facility] [id number] Roxy Jean Baptiste [id number] Roxy Jean Baptiste Notes Date Note Type Note Provider Name and Address Organization Details Recorded Time 10/10/2022 text/html Ear Pain Brief HPIReported bypatient.Notes:26 y.o female pt presents with clogged right ear x 1 day. Pt has been swimming. She denies pain, or discharge. JOHN YI [address] [place], [address], [place] - [facility] 10/10/2022 15:38:57 OBGyn Episode No OBEpisode recorded.
--- OUTSIDE RECORDS SUMMARY | 2024-06-08 06:54 | XMS_ITS | Patient Health Record ---
Author Organization [facility] Address [address] [facility] [place] [address] Care Team Providers Care Project Controller Name Role Phone Tamela Hopkins MD Primary Care Provider Unavaila jaquan Guo Khushboo Unavailable [phone] WoodallDragan Unavailable [phone] Allergies Allergen (clinical drug ingredient) Drug/Non Drug [...] Status Risk Notes Problem Acquired hallux valgus (84376119) Hallux valgus (acquired), left foot (M20.12) Active confirmed Problem Plantar wart (55251640) Plantar wart (B07.0) Active confirmed Problem Acquired hallux valgus (13335784) Hallux valgus (acquired), right foot (M20.11) Active confirmed Problem 94107448 Pes planus of right foot (M21.41) Active confirmed Problem 17641737 Pes planus of left foot (M21.42) Active confirmed Problem 7226206 Tailors bunion (M20.10) Active confirmed Vital Signs Blood pressure diastolic 70 mm Hg 01/08/2024 Height 5ft1in in 01/28/2024 Blood pressure systolic 120 mm Hg 01/08/2024 Weight 215 lbs 01/28/2024 BMI 40.62 kg/m2 01/28/2024 Encounters Encounter Location Date Provider Diagnosis [address] [address] 12/15/2023 Dragan Woodall Other viral warts B07.8 ; Pain in right foot M79.671 and Skin disease L98.[address] [address] 01/08/2024 Dragan Woodall Other viral warts B07.8 ; Pain in left foot M79.672 and Pain in right foot M79.[address] [address] 01/28/2024 Khushboo Guo Right foot pain M79.671 and Plantar wart B07.[address] [address] 09/01/2023 Khushboo Guo [address] [address] 12/09/[address] [address] 12/15/[address] [address] 01/28/2024 Khushboo Guo [address] [address] 03/16/2024 Khushboo Guo Assessments Encounter Date Diagnosis [...] Insured Coverage Start Date Coverage End Date [facility] [address] [place] [address] [id number] Roxy Jean Baptiste Self - patient is the insured Medical (General) History Medical History History ICD Code Back,Hip,and Knee pain Anxiety asthma Broken bones covid-19 Depression Gall bladder problems Liver disease Warts Joint implants/screws Surgical History Surgery Date(Month/Year) bunionectomy benign tumor removal in breast 2019 gall 12/26/2023
--- OUTSIDE RECORDS SUMMARY | 2024-06-08 06:54 | XMS_ITS | Encounter Summary ---
Author Organization [facility] Address [address] [place] [address] Phone Care Team Providers Care Traffic Workforce Representative Name Role Phone Yary Espinal MD Primary Care Provider Unava ilable Encounter Details Date Type Department Care Team (Late st Contact Info) Description 11/14/2016 Conversion Encounter [facility] - [address] [address] Social History Tobacco Use Types Packs/Day Years [...] on filedocumented in this encounter Care Teams Traffic Workforce Representative Relationship Specialty Start Date End Date Yary Espinal MD PCP - General 11/08/16 documented as of this encounter
--- OUTSIDE RECORDS SUMMARY | 2024-06-08 06:54 | XMS_ITS ---
Author Organization [facility] Address [address] [place] [address] Care Team Providers Care Glass Calibrator Name Role Phone Sandeep PENA, Tamela Primary Care Provider Khushboo Cancino [phone] Medications Medication SIG (Take, Route, Fr equency, Duration) Notes Start Date End Date Status Kyleena 19.5 MG as directed Intrauterine Active Albuterol Sulfate HFA Active Encounters Encounter Location Date Provider Diagnosis [facility] [address] [place] [address] 03/16/2024 Khushboo Guo Plan Of Treatment No Information Progress Notes * Roxy YOUNGER LDOB:1995 (28 yo F)Acc No.[id number]:03/16/2024 Progress Notes Patient:?Roxy YOUNGER Provider:?Khushboo Guo DPM :1995???Age:28 Y???Sex:Female D ate:03/16/2024 Address:[facility] [id number] Pcp:Tamela Hopkins MD Subjective: * Chief Complaints: [...] Guo DPM Date:? Generated for Joseph butler/Saritha/Ghazal on:?06/08/2024 06:54 AM EDT History and Physical Notes * HPI (History of Present Illness) Category Sub-Category Detail Notes Category Not es Wart Pt States Last PCP Visit: Date:: 09/14/2023
--- OUTSIDE RECORDS SUMMARY | 2024-06-08 06:54 | XMS_ITS | Clinical Summary ---
Author Organization [facility] Address [address] [place] [address] Phone Care Team Providers Care Yarn Dry Room Worker Name Role Phone Yary Espinal MD Primary Care Provider Unava ilable Active Problems Problem Noted Date Diagnosed Date Bunion Overview (04/15/2017): Had R bunion repair surgery 05/2015 at [facility] with good result. May need to [...] *Heart Disease, No family history of *Sudden /[place] under 55, Family history of Cancer - [...] Health Maintenance Due Date Last Done Comments DTaP,Tdap,and Td Vaccines (6 - Td or Tdap) 12/07/2018 12/07/2008, 04/09/1999, 10/03/1998, Additional history exists Influenza Vaccines (#1) 2023 01/04/20 16, 12/22/2014, 12/09/2013, Additional history exists COVID-19 Vaccine ( season) 2023 HIB Vaccines Aged Out 10/03/1998, 05/01, 01/16/1998, Additional history exists No longer eligible based on patient's age to complete this topic Hepatitis B Vaccines Completed 10/03/1998, 01/16/1998, 1997 IPV Vaccines Completed 04/09/1999, /11/1998, 03/13/1998, Additional history exists MMR Vaccines Completed [...] complete this topic Procedures * Due to [place] [employer] law, this organization might not be sharing sensitive test results. Procedure Name Priority Date/Time Associated Diagnosis Comments CHLAMYDIA AND GONORRHEA, AMPLIFIED Routine 10/05/2015 2:02 PM EDT from Last 3 Months or Most Recently Relevant to Health Maintenance Results * Due to [place] [employer] law, this organization might not be sharing sensitive test results. * Chlamydia and Gonorrhoea, Amplified (10/05/2015 2:02 PM EDT) [facility] URINE GC AMP PROBE NEGATIVE [facility] Comment: No Neisseria Gonorrhoeae RNA detected in this patient's sample (REFERENCE RANGE/NORMAL VALUE: NOT DETECTED) NOTE: This test uses bending machine set up operator-mediated amplification method to detect rRNA from [...] without risk of sexual abuse. Consult the [facility] if needed. Contact phone number . Therapeutic failure or success cannot be determined with the Aptima Combo2 assay since nucleic acid may persist following appropriate antimicrobial therapy. The Centers for Disease Control and Prevention (CDC) recommends confirmatory retesting using culture or a different nucleic acid amplification test when positive results occur, if indicated. Testing performed or reported by [facility], a Service of [facility], [facility] [address], [place] [address] CLIA ??[id number] Luca Luo MD, PhD, Enforcement Manager URINE CHLAMYDIA AMP PROBE NEGATIVE [facility] Comment: No Chlamydia Trachomatis RNA detected in this patient's sample (REFERENCE RANGE/NORMAL VALUE: NOT DETECTED) 10/05/2015 2:02 PM EDT Narrative [facility] - 10/05/2015 2:02 PM EDT URINE CHLAMYDIA GC AMP PROBE us Yary Espinal MD LAB MICROBIOLOGY - GENERAL O RDERABLES Final Result [facility] [address] [place] [address], from Last 3 Months or Most Recently Relevant to Health Maintenance Care Teams Yarn Dry Room Worker Relationship Specialty Start Date End Date Yary Espinal MD PCP - General 11/08/16
--- OUTSIDE RECORDS SUMMARY | 2024-06-08 06:54 | XMS_ITS ---
Author Organization [facility] Address [address] [place] [address] Care Team Providers Care Independent Living Instructor Name Role Phone Tamela Hopkins MD Primary Care Provider Khushboo Cancino [phone] REASON FOR VISIT Brown Encounters Encounter Location Date Provider Diagnosis [facility] [address] [place] [address] 01/28/2024 Khushboo Guo Plan Of Treatment No Information Progress Notes * Roxy YOUNGER LDOB:1995 (28 yo F)Acc No.[id number]:01/28/2024 Patient:?Roxy Younger :1995???Age:28 Y???Sex:Female Address:[facility] [place], [address] * true * Date:? Generated for Printi ng/Fadiallog/eTransmitting on:?06/08/2024 06:54 AM EDT
[2024-06-08 07:11] LABS: MANUAL DIFF FLAG NO
[2024-06-08 07:22] LABS: Basophils Absolute Auto 0.1 X10*3/uL (0.0-0.2); Basophils Percent Auto 0.4 % (0-2); Eosinophils Absolute Auto 0.2 X10*3/uL (0.0-0.4); Eosinophils Percent Auto 1.9 % (0-4); Hematocrit 39.9 % (37.0-47.0); Hemoglobin 13.5 g/dl (12.0-16.0); Imm Gran Abs Auto 0.04 X10*3/uL (0.00-0.03); Imm Gran Pct Auto 0.4 % (0.0-0.4); Lymphocytes Percent Auto 26.9 % (20-40); Mean Corpuscular HGB Conc 33.8 g/dl (31.0-35.0); Mean Corpuscular Hemoglobin 28.7 pg (27.0-33.0); Mean Corpuscular Volume 84.7 fL (80.0-98.0); Mean Platelet Volume 9.5 fL (9.4-12.3); Monocytes Percent Auto 8.6 % (2-11); Neutrophils Percent Auto 61.8 % (45-73); Platelet Count 337 X10*3/uL (160-400); Red Blood Count 4.71 X10*6/uL (4.20-5.50); Red Cell Distribution Width 12.6 % (11.0-16.0); White Blood Count 11.3 X10*3/uL (4.8-10.8)
[2024-06-08 07:53] LABS: Alanine Aminotransferase 19 U/L (0-31); Alkaline Phosphatase 66 U/L (39-117); Anion Gap 9 (12-20); Aspartate Amino Transferase 19 U/L (5-31); Bilirubin Total 0.5 mg/dL (0.0-1.0); Blood Urea Nitrogen 13 mg/dL (9-16); Calcium 8.9 mg/dL (8.4-10.2); Carbon Dioxide 24 mmol/L (22-29); Chloride 109 mmol/L (96-108); Cholesterol 187 mg/dL (<200); Estimated Glomerular Filt Rate > 60; Glucose Random 99 mg/dL (60-115); HDL Cholesterol 46 mg/dL (>40); LDL Cholesterol Calculated 125 mg/dL (<100); Potassium 4.3 mmol/L (3.3-5.1); Sodium 138 mmol/L (135-145); Total Protein 7.7 g/dL (6.5-8.0); Triglycerides 82 mg/dL (<150)
[2024-06-08 08:17] LABS: Free T4 (Free Thyroxine) 1.13 ng/dL (0.71-1.85); TSH reflex Free T4 1.61 uIU/mL (0.32-4.0); Vitamin D 25-OH Total 16.7 ng/mL (>30)
[2024-06-08 08:22] LABS: Folate 7.5 ng/mL (> or = 4.0); Vitamin B12 400 pg/mL (200-900)
[2024-06-11 16:23] LABS: Anti Nuclear Antibody Pattern Nuclear, Homogeneous; Anti Nuclear Antibody Screen POSITIVE (NEGATIVE)
[2024-06-12 20:33] LABS: Estrogen 566 pg/mL
== END 2024-06-08 06:52 | disposition home or self-care (01) ==
LOC: HO.LAB 06:51
DX: Z00.00 Encounter for general adult medical examination without abnormal findings (principal); L65.9 Nonscarring hair loss, unspecified; E78.00 Pure hypercholesterolemia, unspecified; L68.0 Hirsutism; R40.0 Somnolence
CPT/HCPCS: 36415; 80053; 80061; 82306; 82607; 82672; 82746; 84439; 84443; 85025; 86038; 86039

== ENCOUNTER 2024-08-18 15:52 | Outpatient (AMB) | payer BC, SELFPAY ==
--- OUTSIDE RECORDS SUMMARY | 2024-08-18 15:54 | XMS_ITS | Clinical Summary ---
Author Organization [facility] Address [address] [place] [address] Phone Care Team Providers Care Thread Clipper Name Role Phone Yary Espinal MD Primary Care Provider Unava ilable Active Problems Problem Noted Date Diagnosed Date Bunion Overview (04/15/2017): Had R bunion repair surgery 05/2015 at [facility] with good result. May need to [...] *Heart Disease, No family history of *Sudden /[place] under 55, Family history of Cancer - [...] complete this topic Procedures * Due to [place] [employer] law, this organization might not be sharing sensitive test results. Procedure Name Priority Date/Time Associated Diagnosis Comments CHLAMYDIA AND GONORRHEA, AMPLIFIED Routine 10/05/2015 2:02 PM EDT from Last 3 Months or Most Recently Relevant to Health Maintenance Results * Due to [place] [employer] law, this organization might not be sharing sensitive test results. * Chlamydia and Gonorrhoea, Amplified (10/05/2015 2:02 PM EDT) [facility] URINE GC AMP PROBE NEGATIVE [facility] Comment: No Neisseria Gonorrhoeae RNA detected in this patient's sample (REFERENCE RANGE/NORMAL VALUE: NOT DETECTED) NOTE: This test uses clothing man-mediated amplification method to detect rRNA from C.Trachomatis [...] without risk of sexual abuse. Consult the [facility] if needed. Contact phone number . Therapeutic failure or success cannot be determined with the Aptima Combo2 assay since nucleic acid may persist following appropriate antimicrobial therapy. The Centers for Disease Control and Prevention (CDC) recommends confirmatory retesting using culture or a different nucleic acid amplification test when positive results occur, if indicated. Testing performed or reported by [facility], a Service of [facility], [facility] [address], [place] [address] CLIA ??[id number] Luca Luo MD, PhD, Environmental Scientist URINE CHLAMYDIA AMP PROBE NEGATIVE [facility] Comment: No Chlamydia Trachomatis RNA detected in this patient's sample (REFERENCE RANGE/NORMAL VALUE: NOT DETECTED) 10/05/2015 2:02 PM EDT Narrative [facility] - 10/05/2015 2:02 PM EDT URINE CHLAMYDIA GC AMP PROBE us Yary Espinal MD LAB MICROBIOLOGY - GENERAL O RDERABLES Final Result [facility] [address] [place] [address], from Last 3 Months or Most Recently Relevant to Health Maintenance Care Teams Thread Clipper Relationship Specialty Start Date End Date Yary Espinal MD PCP - General 11/08/16
--- OUTSIDE RECORDS SUMMARY | 2024-08-18 15:54 | XMS_ITS | Data Portability ---
Author Organization [facility] James s, [address] Address [address] [place] [address] Assessment No assessment recorded. Plan of Treatment [...] mg-0.5 mg/mL ear drops,suspe nsion 2022 023 [facility] #[id number], [address] [facility], [place], [address], 15:36:08 Patient TargetsNo targets recorded. Patient Instructions Encounter Date Encounter Id Patient Instructions Last Modified By Organization Details Last Modified Time 10/10/2022 [id number] earache: care instructions [email or web address] Not available 10/10/2022 15:36:06 ear infection (otitis media): care instructions [email or web address] Not available 10/10/2022 15:36:06 Based on your [...] if you have any questions or concerns. [email or web address] Not available 10/10/2022 15:37:23 Reason for Referral [...] weight Body mass index (BMI) Body height Oxygen saturation Oxygen saturation in Arterial blood by Pulse oximetry Heart rate Respiratory rate Body temperature Systolic blood pressure Diastolic blood pressure Provider Name and Address Organization Details Last Updated DateTime 3 73851.3 2 g 41.6 kg/m2 154.94 cm 95 % 95 % 67 /min 18 /min 97.9 [degF] 116 mm[Hg] 78 mm[Hg] Ligia Pompa PA - [facility] 3 14:22:38 Social History Question Answer Notes LastModified by [employer] Details LastModified Time Tobacco Smoking Status Never Smoker Ligia rees PA - [facility] 10/10/2022 14:20:50 Which Illicit Or Recreational Drugs Have You Used? Marijuana Information not available 10/10/2022 Have You Had Direct Contact, Or Contact During Intimacy, With Monkeypox Rash, Scabs, Or Body Fluids From A Person With Monkeypox? No Information not available 10/10/2022 Have You Recently Traveled Abroad? No Information not available 10/10/2022 Sex: Unknown Functional Status Question Answer Note LastModified by [employer] Details LastModified Time Do you use any illicit or recreational drugs? Yes Information not available 10/10/2022 Do you or have you ever used any other forms of tobacco or nicotine? No Information not available 10/10/2022 What is your level of alcohol consumption? Occasional Information not available 10/10/2022 Mental Status None recorded. Family History Relationship [...] split virus, quadrivalent, preservative 6 completed Ligia rees, PA - [facility] 10/10/2022 14:20:33 Influenza, MDCK, quadrivalent, PF 2 completed Ligia Aletha null, PA - [facility] 10/10/2022 14:20:33 COVID-19, mRNA, LNP-S, PF, 100 mcg/0.5mL dose or 50 mcg/0.25mL dose 1 completed Ligia Aletha null, PA - [facility] 10/10/2022 14:20:33 COVID-19, mRNA, LNP-S, PF, 100 mcg/0.5mL dose or 50 mcg/0.25mL dose 1 completed Ligia [place] null, PA - [facility] 10/10/2022 14:20:33 COVID-19, mRNA, LNP-S, PF, 100 mcg/0.5mL dose or 50 mcg/0.25mL dose 2 completed Ligia [place] null, PA - [facility] 10/10/2022 14:20:33 COVID-19, mRNA, LNP-S, PF, 100 mcg/0.5mL dose or 50 mcg/0.25mL dose 1 completed Ligia Aletha null, PA - [facility] 10/10/2022 14:20:33 COVID-19, mRNA, LNP-S, bivalent, PF, 50 mcg/0.5 mL or 25mcg/0.25 mL dose 2 completed Ligia Aletha null, PA - [facility] 10/10/2022 14:20:33 Hep A, ped/adol, 2 dose 6 completed Ligia [place] null, PA - [facility] 10/10/2022 14:20:33 meningococcal MCV4P 6 completed Ligia [place] null, PA - [facility] 10/10/2022 14:20:33 Influenza, split virus, quadrivalent, PF 0 completed Ligia [place] null, PA - [facility] 10/10/2022 14:20:33 Influenza, split virus, quadrivalent, PF 5 completed Ligia [place] null, PA - [facility] 10/10/2022 14:20:33 Influenza, split virus, quadrivalent, PF completed JOHN Jones [facility] 10/10/2022 14:20:33 Past Encounters Encounter ID Performer Location Encounter Start Date Encounter Closed Date Diagnosis/Indication Diagnosis SNOMED-CT Code Diagnosis ICD10 Code Diagnosis Note [id number] [address] [place] [address] 03/31/2021 17:14:13 03/31/2021 19:18:11 [id number] [facility] [address] [place] [address] 10/10/2022 14:13:14 10/10/2022 15:38:27 Impacted cerumen in right ear 1763830231 088626 H61.21 Health Concerns Section Related Observation LastModified by Organization Detai ls LastModified Time None Recorded Concern Status LastModified by Organization Details LastModified Time None Recorded Advance Directives Directive None Recorded Payers Insurance Date Sequence Insurance Name Policy Number Policy Chahal Covered Member ID Chahal Member ID Guarantor Name 10/18/2022 1 [facility] [id number] Roxy Ita [id number] Roxy Jean Baptiste Notes Date Note Type Note Provider Name and Address Organization Details Recorded Time 10/10/2022 text/html Ear Pain Brief HPIReported bypatient.Notes:26 y.o female pt presents with clogged right ear x 1 day. Pt has been swimming. She denies pain, or discharge. JOHN IY [address] [place], [phone], JOHN - [facility] 10/10/2022 15:38:57 OBGyn Episode No OBEpisode recorded.
--- OUTSIDE RECORDS SUMMARY | 2024-08-18 15:54 | XMS_ITS | Encounter Summary ---
Author Organization [facility] Address [address] [place] [address] Phone Care Team Providers Care Blanket Washer Name Role Phone Yary Espinal MD Primary Care Provider Unava ilable Encounter Details Date Type Department Care Team (Late st Contact Info) Description 11/14/2016 Conversion Encounter [facility] - [address] [address] Social History Tobacco Use Types Packs/Day Years [...] on filedocumented in this encounter Care Teams Blanket Washer Relationship Specialty Start Date End Date Yary Espinal MD PCP - General 11/08/16 documented as of this encounter
--- OUTSIDE RECORDS SUMMARY | 2024-08-18 15:54 | XMS_ITS ---
Author Organization [facility] Address [address] [place] [address] Care Team Providers Care Patient Relations Director Name Role Phone Tamela Hopkins MD Primary Care Provider Khushboo Cancino [phone] REASON FOR VISIT [place] Reschedule/Cancel Encounters Encounter Location Date Provider Diagnosis [facility] [address] [place] [address] 03/16/2024 Khushboo Guo Plan Of Treatment No Information Progress Notes * Roxy YOUNGER LDOB:1995 (28 yo F)Acc No.[id number]:03/16/2024 Patient:?Roxy YOUNGER :1995???Age:28 Y???Sex:Female Address:[address] [place], [place] [address], [address] * true * Date:? Generated for Printi ng/Fadiallog/eTransmitting on:?08/18/2024 03:54 PM EDT
--- OUTSIDE RECORDS SUMMARY | 2024-08-18 15:54 | XMS_ITS ---
Author Organization [facility] Address [address] [place] [address] Care Team Providers Care Combination Technician Name Role Phone Tamela Hopkins MD Primary Care Provider Khushboo Cancino [phone] REASON FOR VISIT Brown Encounters Encounter Location Date Provider Diagnosis [facility] [address] [place] [address] 01/28/2024 Khushboo Guo Plan Of Treatment No Information Progress Notes * Roxy YOUNGER LDOB:1995 (28 yo F)Acc No.[id number]:01/28/2024 Patient:?Roxy Younger :1995???Age:28 Y???Sex:Female Address:[facility] [place], [address] * true * Date:? Generated for Printi ng/Fadiallog/eTransmitting on:?08/18/2024 03:54 PM EDT
--- OUTSIDE RECORDS SUMMARY | 2024-08-18 15:55 | XMS_ITS ---
Author Organization [facility] Address [address] [place] [address] Care Team Providers Care Real Estate Leasing Agent Name Role Phone Sandeep PENA, Tamela Primary Care Provider Khushboo Cancino [phone] Medications Medication SIG (Take, Route, Fr equency, Duration) Notes Start Date End Date Status Kyleena 19.5 MG as directed Intrauterine Active Albuterol Sulfate HFA Active Encounters Encounter Location Date Provider Diagnosis [facility] [address] [place] [address] 03/16/2024 Khushboo Guo Plan Of Treatment No Information Progress Notes * Roxy YOUNGER LDOB:1995 (28 yo F)Acc No.[id number]:03/16/2024 Progress Notes Patient:?Roxy YOUNGER Provider:?Khushboo Guo DPM :1995???Age:28 Y???Sex:Female D ate:03/16/2024 Address:[facility] [place] Pcp:Tamela Hopkins MD Subjective: * Chief Complaints: [...] Guo DPM Date:? Generated for Joseph butler/Saritha/Ghazal on:?08/18/2024 03:54 PM EDT History and Physical Notes * HPI (History of Present Illness) Category Sub-Category Detail Notes Category Not es Wart Pt States Last PCP Visit: Date:: 09/14/2023
--- OUTSIDE RECORDS SUMMARY | 2024-08-18 15:55 | XMS_ITS | Patient Health Record ---
Author Organization [facility] Address [address] [place] [address] Care Team Providers Care Floor Refinisher Name Role Phone Tamela Hopkins MD Primary Care Provider Unavaila jaquan Guo Khushboo Unavailable [phone] WoodallDragan Unavailable [phone] Allergies Allergen (clinical drug ingredient) Drug/Non Drug [...] Status Risk Notes Problem Acquired hallux valgus (49044400) Hallux valgus (acquired), left foot (M20.12) Active confirmed Problem Plantar wart (72731231) Plantar wart (B07.0) Active confirmed Problem Acquired hallux valgus (92995206) Hallux valgus (acquired), right foot (M20.11) Active confirmed Problem 98763346 Pes planus of right foot (M21.41) Active confirmed Problem 32084195 Pes planus of left foot (M21.42) Active confirmed Problem 6798943 Tailors bunion (M20.10) Active confirmed Vital Signs Blood pressure diastolic 70 mm Hg 01/08/2024 Height 5ft1in in 01/28/2024 Blood pressure systolic 120 mm Hg 01/08/2024 Weight 215 lbs 01/28/2024 BMI 40.62 kg/m2 01/28/2024 Encounters Encounter Location Date Provider Diagnosis [address] [address] 12/15/2023 Dragan Woodall Other viral warts B07.8 ; Pain in right foot M79.671 and Skin disease L98.[address] [address] 01/08/2024 Dragan Woodall Other viral warts B07.8 ; Pain in left foot M79.672 and Pain in right foot M79.[address] [address] 01/28/2024 Khushboo Guo Right foot pain M79.671 and Plantar wart B07.[address] [address] 09/01/2023 Khushboo Guo [address] [address] 12/09/[address] [address] 12/15/[address] [address] 01/28/2024 Khushboo Guo [address] [address] 03/16/2024 Khushboo Guo Assessments Encounter Date Diagnosis [...] Insured Coverage Start Date Coverage End Date [facility] [address] [place] [id number] Roxy Jean Baptiste Self - patient is the insured Medical (General) History Medical History History ICD Code Back,Hip,and Knee pain Anxiety asthma Broken bones covid-19 Depression Gall bladder problems Liver disease Warts Joint implants/screws Surgical History Surgery Date(Month/Year) bunionectomy benign tumor removal in breast 2019 gall 12/26/2023
--- NOTE | 2024-08-18 15:58 | A.OFFVIS_ITS ---
Vital Signs 08/18/24 15:59 Height 5 ft 1 in Weight 225 lb BMI 42.5 BP 102/72 Intake Visit Reasons: PERSONNEL MONITOR annual exam/do not RS 3x Child Welfare Worker Required: No Information Interpreted: non-clinical & clinical Clicker Operator: Clicker Operator Present (Gena ESCOBAR) Accompanied by: Self / Same As Patient Allergies bee pollen [BEE STINGS] Allergy (Severe, Verified 08/18/24 16:02) SWELLING HPI Comments Details: Presenting for annual exam complaining of hair growth under her chin and mild acne, no associated nipple discharge, in addition the patient is having skin lesion under the our pin underneath her breast and bilateral inguinal area on and off Last Pap smear was negative in 09/17 [facility] Medical History Hidradenitis suppurativa Sleep apnea ADHD Cholelithiasis Abdominal pain Anxiety Fatigue Tremor Asthma Surgical History Status post laparoscopic cholecystectomy History of cholecystectomy H/O foot surgery Family History Father No problems noted. Mother No problems noted. Brother No problems noted. Sister No problems noted. Other Substance use disorder Social History Housing: House Are you a primary childcare center director to a significant other at home: No Do you presently have visiting nurse or other home services: No Alcohol intake: current Alcohol intake frequency: a few times a week Patient Tobacco Use Status: Never used Tobacco e-Cigarette/Vaping Use: Never Used Substance Use Type: Marijuana service: No Current occupational status: employed Sexual orientation: Straight/Heterosexual Gender identity: Female Cognitive needs: No Hearing needs: No Vision needs: Yes (Glasses) Female Reproductive History Menstrual Age of Menarche: 14 Review of Systems Const All systems reviewed & are unremarkable except as noted in HPI and below Card Reports as per HPI Resp Reports as per HPI GI Reports as per HPI and Reports no additional complaints Reports as per HPI Physical Exam Vital Signs: Last Vital Signs BP 102/72 08/18/24 15:59 BMI result Body Mass Index 42.5 Const General: cooperative, healthy appearing and comfortable Chest Chest palpation & inspection: normal inspection of the chest and normal palpation of entire chest wall Breast/axilla inspection: normal inspection of the breasts and normal inspection of the axillae Breast/axilla palpation: normal palpation of the breasts, normal palpation of the axillae and no axillary lymphadenopathy Resp Effort & Inspection: normal respiratory effort Auscultation: clear to auscultation bilaterally Percussion: percussion normal Cardio Palpation: normal PMI Rate: regular rate Rhythm: regular rhythm Heart sounds: no murmurs and no rubs Peripheral pulses: Peripheral pulses 2+ throughout GI Inspection: Yes normal to inspection Palpation (GI): Soft to palpation, nontender, no guarding, not rigid and No hepatosplenomegaly present Percussion: Yes normal to percussion Auscultation: normal bowel sounds Rectal Exam - Female: deferred General: Yes bladder normal to palpation External Female Exam: No lesion Speculum Exam - Vagina: normal appearance of the vagina, normal palpation, normal vaginal discharge and not erythematous Speculum Exam - Cervix: normal appearance of the cervix and normal palpation Bimanual exam- vagina & uterus: normal bimanual exam, normal palpation, uterine size normal, bladder normal to palpation, consistency normal and normal palpation Bimanual Exam- Adnexa, other: normal adnexae, no masses and no tenderness Skin Other: Skin lesions under her armpit underneath breast and bilateral inguinal areas suspicious of hidradenitis suppurative Assessment & Plan Assessment & Plan (1) Well woman exam: Code(s): Z01.419 - Encounter for gynecological examination (general) (routine) without abnormal findings Category: Medical Plan: Pap smear taken Counseled the patient about the recommended dietary allowance of 1000 mg of Calcium & 600 IU of vitamin D. The patient was instructed to perform monthly self-breast exams and to schedule an annual exam in a year; All questions answered and the patient verbalized understanding. Instructed the patient to schedule annual exam in a year (2) Hirsutism: Code(s): L68.0 - Hirsutism Category: Medical Plan: TSH, prolactin, hCG, 17 hydroxyprogesterone, testosterone total and free ordered pelvic ultrasound. Instructions given the patient to schedule a follow-up appointment within 2 weeks (3) Skin lesions: Code(s): L98.9 - Disorder of the skin and subcutaneous tissue, unspecified Category: Medical Plan: Skin lesions location are suspicious of hidradenitis suppurative a cone refer to dermatology for further management Orders: Orders Pap Smear Today Z01.419 - Encounter for gynecological examination (general) (routine) without abnormal findings CT NG by PCR Today Z01.419 - Encounter for gynecological examination (general) (routine) without abnormal findings Referrals Dermatology Referral L98.9 - Disorder of the skin and subcutaneous tissue, unspecified Coding Level of Care Code New Pt Prev Care 18-39yr(60977 Diagnoses Well woman exam Z01.419 Hirsutism L68.0 Skin lesions L98.9
[2024-08-18 15:59] VITALS: BP 102/72; BMI 42.5
== END 2024-08-18 16:30 | disposition home or self-care (01) ==
LOC: HO.HWS 15:52
PROVIDERS: Visit Provider Obstetrics & Gynecology
DX: Z01.419 Encounter for gynecological examination (general) (routine) without abnormal findings (principal); L68.0 Hirsutism; L98.9 Disorder of the skin and subcutaneous tissue, unspecified
CPT/HCPCS: 99385; 99459

== ENCOUNTER 2024-08-18 15:52 | Outpatient (REF) | payer BC, SELFPAY ==
--- OUTSIDE RECORDS SUMMARY | 2024-08-18 16:29 | XMS_ITS | Encounter Summary ---
Author Organization [facility] Address [address] [place] [address] Phone Care Team Providers Care Fibrous Wallboard Inspector Name Role Phone Yary Espinal MD Primary Care Provider Unava ilable Encounter Details Date Type Department Care Team (Late st Contact Info) Description 11/14/2016 Conversion Encounter [facility] - [address] [address] Social History Tobacco Use Types Packs/Day Years [...] on filedocumented in this encounter Care Teams Fibrous Wallboard Inspector Relationship Specialty Start Date End Date Yary Espinal MD PCP - General 11/08/16 documented as of this encounter
--- OUTSIDE RECORDS SUMMARY | 2024-08-18 16:29 | XMS_ITS | Clinical Summary ---
Author Organization [facility] Address [address] [place] [address] Phone Care Team Providers Care On Site Coordinator Name Role Phone Yary Espinal MD Primary Care Provider Unava ilable Active Problems Problem Noted Date Diagnosed Date Bunion Overview (04/15/2017): Had R bunion repair surgery 05/2015 at [facility] with good result. May need to have [...] *Heart Disease, No family history of *Sudden /CT under 55, Family history of Cancer - [...] complete this topic Procedures * Due to [place] [employer] law, this organization might not be sharing sensitive test results. Procedure Name Priority Date/Time Associated Diagnosis Comments CHLAMYDIA AND GONORRHEA, AMPLIFIED Routine 10/05/2015 2:02 PM EDT from Last 3 Months or Most Recently Relevant to Health Maintenance Results * Due to [place] [employer] law, this organization might not be sharing sensitive test results. * Chlamydia and Gonorrhoea, Amplified (10/05/2015 2:02 PM EDT) [facility] URINE GC AMP PROBE NEGATIVE [facility] Comment: No Neisseria Gonorrhoeae RNA detected in this patient's sample (REFERENCE RANGE/NORMAL VALUE: NOT DETECTED) NOTE: This test uses human resources assistant manager-mediated amplification method to detect rRNA from C.Trachomatis [...] without risk of sexual abuse. Consult the [facility] if needed. Contact phone number . Therapeutic failure or success cannot be determined with the Aptima Combo2 assay since nucleic acid may persist following appropriate antimicrobial therapy. The Centers for Disease Control and Prevention (CDC) recommends confirmatory retesting using culture or a different nucleic acid amplification test when positive results occur, if indicated. Testing performed or reported by [facility], a Service of [facility], [facility] [address], [place] [address] CLIA ??[id number] Luca Luo MD, PhD, [employer] URINE CHLAMYDIA AMP PROBE NEGATIVE [facility] Comment: No Chlamydia Trachomatis RNA detected in this patient's sample (REFERENCE RANGE/NORMAL VALUE: NOT DETECTED) 10/05/2015 2:02 PM EDT Narrative [facility] - 10/05/2015 2:02 PM EDT URINE CHLAMYDIA GC AMP PROBE us Yary Espinal MD LAB MICROBIOLOGY - GENERAL O RDERABLES Final Result [facility] [address] [place] [address], from Last 3 Months or Most Recently Relevant to Health Maintenance Care Teams On Site Coordinator Relationship Specialty Start Date End Date Yary Espinal MD PCP - General 11/08/16
[2024-08-18 18:00] LABS: Thyroid Stimulating Hormone 2.02 uIU/mL (0.32-4.0)
[2024-08-19 06:42] LABS: CT PCR NOT DETECTED (Not Detect.); NG PCR NOT DETECTED (Not Detect.)
[2024-08-19 12:44] LABS: Prolactin 14.5 ng/mL
[2024-08-23 17:03] LABS: Testosterone, Free 2.9 pg/mL (0.1-6.4); Testosterone, Total 20 ng/dL (2-45)
== END 2024-08-18 15:53 | disposition home or self-care (01) ==
LOC: HO.LAB 15:52
PROVIDERS: Visit Provider Obstetrics & Gynecology
DX: Z01.419 Encounter for gynecological examination (general) (routine) without abnormal findings (principal); L68.0 Hirsutism
CPT/HCPCS: 36415; 83498; 84146; 84402; 84403; 84443; 87491; 87591; 88175

== ENCOUNTER 2024-08-24 06:41 | Outpatient (REF) | payer BC, SELFPAY ==
--- OUTSIDE RECORDS SUMMARY | 2024-08-24 06:44 | XMS_ITS | Data Portability ---
Author Organization JOHN James s, [address] Address [address] [place] [address] Assessment No assessment recorded. Plan of Treatment [...] mg-0.5 mg/mL ear drops,suspe nsion 2022 023 [facility]/Pharmacy #[id number], [address] [facility], [place], [address], 15:36:08 Patient TargetsNo targets recorded. Patient Instructions Encounter Date Encounter Id Patient Instructions Last Modified By Organization Details Last Modified Time 10/10/2022 [id number] earache: care instructions [email or web address] Not available 10/10/2022 15:36:06 ear infection (otitis media): care instructions [email or web address] Not available 10/10/2022 15:36:06 Based on your [...] if you have any questions or concerns. [email or web address] Not available 10/10/2022 15:37:23 Reason for Referral None Reported. Problems No Known Problems Procedures Surgical History Date Name Laterality Status Provider Name and Address Organization Details Recorded Time 3 Cerumen Removal by Irrigation completed Ligia LOPEZ [...] Heart rate Respiratory rate Body temperature Systolic And Diastolic Provider Name and Address Organization Details Last Updated DateTime 3 65041.3 2 g 41.6 kg/m2 154.94 cm 95 % 95 % 67 /min 18 /min 97.9 [degF] 116/78 mm[Hg] Ligia Aletha PA - [facility] 3 14:22:38 Social History Question Answer Notes LastModified by [employer] Details LastModified Time Tobacco Smoking Status Never Smoker Ligia Aletha null, PA - [facility] 10/10/2022 14:20:50 Which [...] Functional Status Question Answer Note LastModified by [employer] Details LastModified Time Do you use any [...] split virus, quadrivalent, preservative 6 completed Ligia Witt null, PA - [facility] 10/10/2022 14:20:33 Influenza, MDCK, quadrivalent, PF 2 completed Ligia Aletha null, PA - [facility] 10/10/2022 14:20:33 COVID-19, mRNA, LNP-S, PF, 100 mcg/0.5mL dose or 50 mcg/0.25mL dose 1 completed Ligia Witt null, PA - [facility] 10/10/2022 14:20:33 COVID-19, mRNA, LNP-S, PF, 100 mcg/0.5mL dose or 50 mcg/0.25mL dose 1 completed Ligia Witt null, PA - [facility] 10/10/2022 14:20:33 [...] or 25mcg/0.25 mL dose 2 completed Ligia Witt null, PA - [facility] 10/10/2022 14:20:33 Hep A, ped/adol, 2 dose 6 completed Ligia Witt null, PA - [facility] 10/10/2022 14:20:33 meningococcal MCV4P 6 completed Ligia Aletha null, PA - [facility] 10/10/2022 14:20:33 Influenza, split virus, quadrivalent, PF 0 completed Ligia Aletha null, PA - [facility] 10/10/2022 14:20:33 Influenza, split virus, quadrivalent, PF 5 completed Ligia Aletha null, PA - [facility] 10/10/2022 14:20:33 Influenza, split virus, quadrivalent, PF completed Ligia rees PA - [facility] 10/10/2022 14:20:33 Past Encounters Encounter ID Performer Location Encounter Start Date Encounter Closed Date Diagnosis/Indication Diagnosis SNOMED-CT Code Diagnosis ICD10 Code Diagnosis Note [id number] [address] [place] [address] 03/31/2021 17:14:13 03/31/2021 19:18:11 [id number] JOHN YI [address] [place] [address] 10/10/2022 14:13:14 10/10/2022 15:38:27 Impacted cerumen in right ear 2216650801 828779 H61.21 Health Concerns Section Related Observation LastModified by Organization Detai ls LastModified Time None Recorded Concern Status LastModified by Organization Details LastModified Time None Recorded Advance Directives Directive None Recorded Payers Insurance Date Sequence Insurance Name Policy Number Policy Chahal Covered Member ID Chahal Member ID Guarantor Name 10/18/2022 1 [employer] [id number] Roxy Ita [id number] Roxy Jean Baptiste Notes Date Note Type Note Provider Name and Address Organization Details Recorded Time 10/10/2022 text/html Ear Pain Brief HPIReported bypatient.Notes:26 y.o female pt presents with clogged right ear x 1 day. Pt has been swimming. She denies pain, or discharge. JOHN YI [address] [place], [address], PA - [facility] 10/10/2022 15:38:57 OBGyn Episode No OBEpisode recorded.
[2024-08-24 07:57] LABS: Cholesterol 212 mg/dL (<200); HDL Cholesterol 45 mg/dL (>40); LDL Cholesterol Calculated 151 mg/dL (<100); Triglycerides 84 mg/dL (<150)
[2024-08-31 16:09] LABS: Cortisol Free, 24 Hr Urine 16.6 mcg/24 h (4.0-50.0); Creatinine, 24 Hr Urine 1.26 g/24 h (0.50-2.15); Total Volume, 24 Hr Urine 1700 mL
== END 2024-08-24 06:42 | disposition home or self-care (01) ==
LOC: HO.LAB 06:41
PROVIDERS: Obstetrics & Gynecology; Visit Provider Internal Medicine
DX: L68.0 Hirsutism (principal); Z00.00 Encounter for general adult medical examination without abnormal findings; E78.5 Hyperlipidemia, unspecified
CPT/HCPCS: 36415; 80061; 82530

== ENCOUNTER 2024-09-01 16:08 | Outpatient (AMB) | payer BC, SELFPAY ==
--- NOTE | 2024-09-01 16:15 | MHC.OFFWIV ---
Intake Vital Signs 09/01/24 16:16 Height 5 ft 1 in Weight 226 lb BMI 42.7 BP 110/68 Blood Pressure Location Lt brachial Position Sitting Pulse 89 Pulse Source Pulse Oximeter Temp 98.2 F Temp Source Oral Pulse Oximetry (%) 98 Oxygen Delivery Method Room Air Intake Visit Reasons: EP Cyst? Intake Note: Patient has ?cyst right on tailbone that started today, she states she has gotten multiple times before. Patient Tobacco Use Status: Never used Tobacco Allergies bee pollen [BEE STINGS] Allergy (Severe, Verified 09/01/24 16:17) SWELLING HPI HPI Comments History of Present Illness Details History of Present Illness - The patient is a 28-year-old female presenting with a potential development of a pilonidal cyst since this am. - The concern arose due to a sensation of slight swelling at the site of a previous pilonidal cyst near the tailbone. - The patient noted the possible cyst on the current day of the visit but reports no associated redness, heat, or discharge. - She has had two prior incidences of pilonidal cysts; one was managed by drainage, and another with an unspecified antibiotic. - There is no current history of fever, chills, or any systemic signs of infection. - She is concerned that she may develop an abscess. - She denies diarrhea, constipation, or other lesions. Physical Exam General: Cooperative, healthy appearing, comfortable, no acute distress and well developed Respiratory: Normal respiratory effort and able to speak in complete sentences. Clear to auscultation bilaterally Cardiovascular: Regular rate and rhythm. Normal S1 and S2 GI: Normal to inspection. Soft to palpation and nontender Skin: No rashes or lesions noted, slight swelling noted at the right buttock area, no redness or warmth, scar tissue present. No induration or fluctuance noted. Patient was informed and verbally consented to the use of an ambient scribe for clinic note documentation during this visit. [facility] Medical History Hidradenitis suppurativa Sleep apnea ADHD Cholelithiasis Abdominal pain Anxiety Fatigue Tremor Asthma Surgical History Status post laparoscopic cholecystectomy History of cholecystectomy H/O foot surgery Family History Father No problems noted. Mother No problems noted. Brother No problems noted. Sister No problems noted. Other Substance use disorder Social History Housing: House Are you a primary ambulatory care nurse to a significant other at home: No Do you presently have visiting nurse or other home services: No Alcohol intake: current Alcohol intake frequency: a few times a week Patient Tobacco Use Status: Never used Tobacco e-Cigarette/Vaping Use: Never Used Substance Use Type: Marijuana service: No Current occupational status: employed Sexual orientation: Straight/Heterosexual Gender identity: Female Cognitive needs: No Hearing needs: No Vision needs: Yes (Glasses) Female Reproductive History Menstrual Age of Menarche: 14 Review of Systems Const All systems reviewed & are unremarkable except as noted in HPI and below Physical Exam Vital Signs: Last Vital Signs Temp 98.2 F 09/01/24 16:16 Pulse 89 09/01/24 16:16 BP 110/68 09/01/24 16:16 Pulse Ox 98 09/01/24 16:16 Oxygen Delivery Method Room Air 09/01/24 16:16 BMI result Body Mass Index 42.7 Assessment & Plan Assessment & Plan (1) Anal or rectal pain: Code(s): K62.89 - Other specified diseases of anus and rectum Plan Most likely early abscess? vs scar tissue Plan - warm compresses to the area. - Prescribe Bactrim to be taken twice daily for seven days. - Advise monitoring for changes in the cyst's size or signs of infection. - Discuss low risk for antibiotic-induced side effects. - Educate on signs that necessitate reassessment. Coding Level of Care Code Est Pt Level 3 (20485) Diagnoses Anal or rectal pain K62.89
[2024-09-01 16:16] VITALS: BP 110/68; PULSE 89; TEMP 36.8; O2SAT 98; BMI 42.7
== END 2024-09-01 16:56 | disposition home or self-care (01) ==
PROVIDERS: Visit Provider Physician Assistant Medical
DX: L05.91 Pilonidal cyst without abscess (principal)

== ENCOUNTER → 2024-09-01 16:08 | Outpatient (BNVA) | payer BC, SELFPAY | PROVIDERS: Visit Provider Physician Assistant Medical | DX: Z13.89 Encounter for screening for other disorder (principal) ==

== ENCOUNTER 2024-09-17 15:44 | Outpatient (REF) | payer BC, SELFPAY ==
--- NOTE | ~2024-09-17 | US_ITS ---
EXAMINATION: US PELVIS CLINICAL INFORMATION: Hirsutism, spotting per vagina beginning 4 days ago COMPARISON: June 17, 2022 TECHNIQUE: Ultrasound of the pelvis is performed using both transabdominal and transvaginal transducers along with Doppler. Transvaginal imaging is performed due to inadequate visualization transabdominally. FINDINGS: Uterus: The uterus is anteverted and measures 6.0 x 3.4 x 3.9 cm. The endometrial stripe is obscured by an IUD. IUD is in the upper uterine canal. There is trace fluid in the lower uterine canal. The uterus is smooth in contour and has normal myometrial echogenicity. No visible fibroid. Adnexa: Both ovaries are visualized. There is normal color flow to the adnexa. There is no ovarian torsion. There is no pelvic ascites or fluid collection. Right ovary measures 2.0 x 1.7 x 1.3 cm. Left ovary measures 2.4 x 1.9 x 2.3 cm. Dominant 16 mm follicle is present. US/US pelvic and transvaginal IMPRESSION: Unremarkable pelvic ultrasound. Electronically signed by: Reynaldo Rodriguez MD 09/17/2024 04:42 PM EDT
--- OUTSIDE RECORDS SUMMARY | 2024-09-17 15:46 | XMS_ITS | Data Portability ---
Author Organization [facility] James [facility], [address] Address [address] [place] [address] Assessment No assessment recorded. Plan of Treatment [...] mg-0.5 mg/mL ear drops,suspe nsion 2022 023 [facility]/Pharmacy #[id number], [address] [facility], [place], [address], 15:36:08 Patient TargetsNo targets recorded. Patient Instructions Encounter Date Encounter Id Patient Instructions Last Modified By Organization Details Last Modified Time 10/10/2022 [id number] earache: care instructions [email or web address] Not available 10/10/2022 15:36:06 ear infection (otitis media): care instructions [email or web address] Not available 10/10/2022 15:36:06 Based on your [...] if you have any questions or concerns. [email or web address] Not available 10/10/2022 15:37:23 Reason for Referral [...] Address Organization Details Last Updated DateTime 3 84806.3 2 g 41.6 kg/m2 154.94 cm 95 % 95 % 67 /min 18 /min 97.9 [degF] 116 mm[Hg] 78 mm[Hg] Ligia Pompa PA - [facility] 3 14:22:38 Social History Question Answer Notes LastModified by [employer] Details LastModified Time Tobacco Smoking Status Never [...] Functional Status Question Answer Note LastModified by [employer] Details LastModified Time Do you use any [...] Influenza, MDCK, quadrivalent, PF 2 completed Ligia Downey null, PA - [facility] 10/10/2022 14:20:33 COVID-19, mRNA, LNP-S, PF, 100 mcg/0.5mL dose or 50 mcg/0.25mL dose 1 completed Ligia Aletha null, PA - [facility] 10/10/2022 14:20:33 COVID-19, mRNA, LNP-S, PF, 100 mcg/0.5mL dose or 50 mcg/0.25mL dose 1 completed Ligia Downey null, PA - [facility] 10/10/2022 14:20:33 COVID-19, mRNA, LNP-S, PF, 100 mcg/0.5mL dose or 50 mcg/0.25mL dose 2 completed Ligia Aletha null, PA - [facility] 10/10/2022 14:20:33 COVID-19, mRNA, LNP-S, PF, 100 mcg/0.5mL dose or 50 mcg/0.25mL dose 1 completed Ligia Downey null, PA - [facility] 10/10/2022 14:20:33 COVID-19, mRNA, LNP-S, bivalent, PF, 50 mcg/0.5 mL or 25mcg/0.25 mL dose 2 completed Ligia Aletha null, PA - [facility] 10/10/2022 14:20:33 Hep A, ped/adol, 2 dose 6 completed Ligia Downey null, PA - [facility] 10/10/2022 14:20:33 meningococcal MCV4P 6 completed Ligia Aletha null, PA - [facility] 10/10/2022 14:20:33 Influenza, split virus, quadrivalent, PF 0 completed Ligia Aletha null, PA - [facility] 10/10/2022 14:20:33 Influenza, split virus, quadrivalent, PF 5 completed Ligia Downey null, PA - [facility] 10/10/2022 14:20:33 Influenza, split virus, quadrivalent, PF completed JOHN Jones [facility] 10/10/2022 14:20:33 Past Encounters Encounter ID Performer Location Encounter Start Date Encounter Closed Date Diagnosis/Indication Diagnosis SNOMED-CT Code Diagnosis ICD10 Code Diagnosis Note [id number] [address] [place] [address] 03/31/2021 17:14:13 03/31/2021 19:18:11 [id number] [facility] [address] [place] [address] 10/10/2022 14:13:14 10/10/2022 15:38:27 Impacted cerumen in right ear [id number] 399803 H61.21 Health Concerns Section Related Observation LastModified by Organization Detai ls LastModified Time None Recorded Concern Status LastModified by Organization Details LastModified Time None Recorded Advance Directives Directive None Recorded Payers Insurance Date Sequence Insurance Name Policy Number Policy Chahal Covered Member ID Chahal Member ID Guarantor Name 10/18/2022 1 [facility] [id number] Roxy Ita [id number] Roxy Jean Baptiste Notes Date Note Type Note Provider Name and Address Organization Details Recorded Time 10/10/2022 text/html Ear Pain Brief HPIReported bypatient.Notes:26 y.o female pt presents with clogged right ear x 1 day. Pt has been swimming. She denies pain, or discharge. JOHN YI [address] [place], [address], JOHN - [facility] 10/10/2022 15:38:57 OBGyn Episode No OBEpisode recorded.
== END 2024-09-17 15:45 | disposition home or self-care (01) ==
LOC: HO.US 15:44
PROVIDERS: Visit Provider Obstetrics & Gynecology
DX: L68.0 Hirsutism (principal)
CPT/HCPCS: 76830; 76856

== ENCOUNTER → 2024-09-17 15:45 | Outpatient (BNV) | payer BC, SELFPAY | PROVIDERS: Visit Provider Radiology Diagnostic Radiology | DX: L68.0 Hirsutism (principal); N93.9 Abnormal uterine and vaginal bleeding, unspecified | CPT/HCPCS: 76830; 76856 ==

== ENCOUNTER 2024-10-11 14:51 | Outpatient (AMB) | payer BC, SELFPAY ==
--- OUTSIDE RECORDS SUMMARY | 2024-03-16 06:15 | XMS_ITS ---
Author Organization [facility] Address [address] [place] [address] Care Team Providers Care Medication Reconciliation Technician Name Role Phone Tamela Hopkins MD Primary Care Provider Khushboo Cancino [phone] Medications Medication SIG (Take, Route, Fr equency, Duration) Notes Start Date End Date Status Kyleena 19.5 MG as directed Intrauterine Active Albuterol Sulfate HFA Active Encounters Encounter Location Date Provider Diagnosis [facility] [address] [place] [address] 03/16/2024 Khushboo Guo Plan Of Treatment No Information Progress Notes * Roxy YOUNGER LDOB:1995 (28 yo F)Acc No.[id number]:03/16/2024 Progress Notes Patient: Kristen CALIeyad Abebe Provider: Mis Guo DPM :1995 A ge:28 Y S ex:Female Date:03/16/2024 [facility] Pcp:Tamela Hopkins MD Subjective: * Chief Complaints: [...] 05/17/2023 Generated for Joseph Harper/Ghazal on: 0 10/11/2024 04:06 PM EDT History and Physical Notes * HPI (History of Present Illness) Category Sub-Category Detail Notes Category Not es Wart Pt States Last PCP Visit: Date:: 09/14/2023
--- NOTE | 2024-10-11 14:55 | MHC.PC.OV ---
Vital Signs 10/11/24 14:57 Height 5 ft 1 in Weight 221 lb 2 oz BMI 41.8 BP 110/62 Blood Pressure Location Lt brachial Position Sitting Oxygen Delivery Method Room Air Intake Visit Reasons: Annual Exam Summer Analyst Required: No Accompanied by: Self / Same As Patient Allergies bee pollen (BEE STINGS) Allergy (Severe, Verified 10/11/24 15:16) SWELLING Medication List - Last Reconciled 10/11/24 by Peace Blanco PA-C albuterol sulfate 90 mcg/actuation 2 puffs inhalation Q6H PRN bupropion HCl SR (Wellbutrin SR) 150 mg PO DAILY cholecalciferol (vitamin D3) 25 mcg PO DAILY levonorgestrel (Kyleena) 1 device intrauterine ONCE Tobacco use date assessed: 10/11/24 Dental Screening Dental Screen Date: 10/11/24 Did you have a dental visit in the last 12 months?: Yes Did you have a dental problem in the last 6 months where you did not have access to dental care?: No Was dental information given to patient?: Patient has dentist HPI Annual Exam HPI Details 28-year-old female with past medical history of asthma, anxiety, tremor, fatty liver disease, hyperlipidemia last seen 05/2024 coming in for annual exam. In review of the notes, patient was seen by Gynecology 07/2024 referral was placed to Dermatology for hirsutism and blood work as well as ultrasound and were ordered for further evaluation. Presenting with headaches, hypercholesterolemia, and musculoskeletal concerns. The patient reports experiencing frequent headaches since the beginning of the year, occurring several times a week, lasting up to three hours without medication. She uses Excedrin and a migraine cap for relief, which reduces the duration to about an hour. The headaches are described as pressure-like, sometimes causing dizziness and sensitivity to light and sound. They occur sporadically throughout the day, with no consistent pattern or identified triggers. The patient's cholesterol level increased from 125 mg/dL to 151 mg/dL. She was fasting during the test. Dietary changes include reintroducing gluten and dairy after gallbladder removal, but she denies consuming fried foods or red meats. The patient reports a history of mild thoracic spine curvature and experiences hip pain, sometimes leading to numbness in the legs when sitting. She suspects arthritis due to family history of rheumatoid arthritis. The patient has a positive SUSI test, indicating a possible autoimmune condition, with a follow-up appointment scheduled with rheumatology. [facility] Medical History Hidradenitis suppurativa Sleep apnea ADHD Cholelithiasis Abdominal pain Anxiety Fatigue Tremor Asthma Surgical History Status post laparoscopic cholecystectomy History of cholecystectomy H/O foot surgery Family History Father No problems noted. Mother No problems noted. Brother No problems noted. Sister No problems noted. Other Substance use disorder Social History Housing: House Are you a primary body care manager to a significant other at home: No Do you presently have visiting nurse or other home services: No Alcohol intake: current Alcohol intake frequency: a few times a week Patient Tobacco Use Status: Never used Tobacco e-Cigarette/Vaping Use: Never Used Substance Use Type: Marijuana service: No Current occupational status: employed Sexual orientation: Straight/Heterosexual Gender identity: Female Cognitive needs: No Hearing needs: No Vision needs: Yes (Glasses) Female Reproductive History Menstrual Age of Menarche: 14 Questionnaire PHQ-9 Over the last 2 weeks, how often have you been bothered by any of the following problems? 1. Little interest or pleasure in doing things: more than half the days 2. Feeling down, depressed, or hopeless: several days 3. Trouble falling or staying asleep, or sleeping too much: not at all 4. Feeling tired or having little energy: nearly every day 5. Poor appetite or overeating: several days 6. Feeling bad about yourself - or that you are a failure or have let yourself or your family down: several days 7. Trouble concentrating on things, such as reading the newspaper or watching television: more than half the days 8. Moving or speaking so slowly that other people could have noticed. Or the opposite - being so fidgety or restless that you have been moving around a lot more than usual: not at all 9. Thoughts that you would be better off or of hurting yourself in some way: not at all Total score: 10 36019 - PHQ-9 Billing: Yes Source: Developed by Drs. Venkatesh Mason, Kristina Fleming, Koko Emmanuel and colleagues, with an educational elliot from [employer]. Thrive Questionnaire Date Thrive assessed: 10/11/24 I am a: Patient What is your living situation today?: I have a steady place to live Within the past 12 months, did the food you bought not last and you didn't have the money to get more?: Never true Within the past 12 months, did you worry whether your food would run out before you got money to buy more?: Never true Do you have trouble paying for medicines?: No Do you have trouble getting transportation to medical appointments?: No Do you have trouble paying your heating and electricity bill?: No Do you have trouble taking care of your child, family member or friend?: No Do you have trouble with day-to-day activities such as bathing, preparing meals, shopping, managing finances, etc.?: No Are you currently unemployed and looking for a job?: No Are you interested in more education?: No Please select the resources that you would like help with: None THRIVE Score: 0 AUDIT C Alcohol Use Questionnaire (AUDIT-C) 1. How often do you have a drink containing alcohol?: 2-4 times a month 2. How many drinks containing alcohol do you have on a typical day when you are drinking?: 1 or 2 3. How often do you have six or more drinks on one occasion?: Never Total Score: 2 DIMAS-7 AMB Questionnaire DIMAS-7 Date DIMAS - 7 assessed: 10/11/24 Feeling nervous, anxious, or on edge: 3 = Nearly every day Not being able to stop or control worryin = More than half the days Worrying too much about different things: 3 = Nearly every day Trouble relaxin = Several days Being so restless that it is hard to sit still: 1 = Several days Becoming easily annoyed or irritable: 2 = More than half the days Feeling afraid as if something awful might happen: 1 = Several days Total DIMAS-7 score (0-4 normal; 5-9 mild; 10-14 moderate; 15-21 severe): 13 Source: Developed by Kristina Leiva Kurt Kroenke and colleagues, with an educational elliot from [employer]. DIMAS-7 Assessment Billing DIMAS-7 Assessment Tool: DIMAS-7 Assessment 72037 Review of Systems Const Denies body aches, Denies fatigue, Denies fever(s), Denies frequent falls, Denies headache(s) and Denies weakness Eyes Reports no additional complaints and Denies change in vision ENT Reports Normal hearing present, Denies dysphagia, Denies dizziness, Denies facial pain, Denies headache(s), Denies nasal congestion and Denies odynophagia Card Denies chest pain, Denies syncope, Denies irregular heart rhythm, Denies leg edema, Denies lightheadedness and Denies dyspnea Resp Denies cough and Denies dyspnea GI Denies constipation, Denies dysphagia, Denies dyspepsia, Denies diarrhea, Denies nausea, Denies odynophagia and Denies vomiting Denies urinary frequency, Denies dysuria, Denies urinary hesitancy and Denies urinary urgency Musc Denies back pain and Denies myalgias Skin/Breast Reports system reviewed and no additional complaints, except as documented Neuro Reports Normal hearing present, Denies dizziness, Denies syncope, Denies frequent falls, Denies headache(s) and Denies weakness Psych Reports no additional complaints Endo Denies fatigue Physical exam (Primary Care) Vital Signs: Last Vital Signs BP 110/62 10/11/24 14:57 Oxygen Delivery Method Room Air 10/11/24 14:57 BMI result Body Mass Index 41.8 Tobacco/Smoking Status: Tobacco use Status Tobacco use date assessed 10/11/24 10/11/24 14:58 Patient Tobacco Use Status Never used Tobacco 10/11/24 14:58 e-Cigarette/Vaping Use Never Used 10/11/24 14:58 PHQ-9: PHQ-9 Score PHQ-9: Total score 10 10/11/24 17:15 Thrive Assessment: Date of Thrive Assessment Date Thrive assessed 10/11/24 10/11/24 14:58 Const General: cooperative, healthy appearing, comfortable and no acute distress Orientation/consciousness: patient oriented x3 HENMT Head: Yes normocephalic Ears: hearing grossly normal bilaterally General nose exam: Normal external nose present Eyes General: appearance normal, both eyes and all related structures Conjunctivae: conjunctivae normal Pupils: Equal, round and reactive pupils present Neck Neck: Yes full ROM and Yes no lymphadenopathy Resp Effort & Inspection: normal respiratory effort Auscultation: clear to auscultation bilaterally, no crackles, no rales, no rhonchi and no wheezes Cardio Rate: regular rate Rhythm: regular rhythm Skin General skin exam: no rashes or lesions noted Neuro General: patient oriented x3 Cranial nerves: Yes CN's II-XII intact bilaterally, Yes Facial sensation intact/muscles of mastication intact, Yes Equal, round and reactive pupils present, Yes Bilaterally intact EOM present, Yes Nystagmus not present, Yes Normal facial strength present, Yes Midline tongue present, Yes Normal hearing present and Yes Ability to bilaterally elevate shoulders present Cognition (Neuro): normal cognition Gait exam (Neuro): Normal gait present Motor exam (neuro): 5/5 motor strength present throughout Extrem General: Yes normal to inspection, Yes full ROM and No edema Psych Affect: normal affect Attitude: cooperative Insight: Good insight present (Psych) Judgement: Good judgement present (Psych) Coding Level of Care Code Est Pt Level 4 (21025) Diagnoses Anxiety F41.9 Hyperlipidemia E78.5 Fatty liver K76.0 Mild intermittent asthma without complication J45.20 Asthma severity: mild Asthma persistence: intermittent Asthma complication type: uncomplicated Hirsutism L68.0 Migraine G43.909 Bilateral hip pain M25.551; M25.552 Neck pain M54.2 Additional Codes DIMAS-7 Assessment Billing - DIMAS-7 Assessment Tool: DIMAS-7 Assessment 02997 ([id number]) PHQ-9 - 20300 - PHQ-9 Billing: Yes ([id number]) Assessment & Plan Assessment & Plan (1) Anxiety: Comment: Replaced By [facility] counselor and med provider Code(s): F41.9 - Anxiety disorder, unspecified Category: Medical Plan: Continue to follow with counselor and med provider though [facility] (2) Hyperlipidemia: Code(s): E78.5 - Hyperlipidemia, unspecified Category: Medical Plan: Avoid foods that are high in cholesterol such as red meat, fried foods, eggs and baked goods. Triglyceride goal of less than 150 and LDL goal of less than 130. Discussed elevated cholesterol with the patient she agrees to continue to work on dietary and lifestyle modification. (3) Fatty liver: Code(s): K76.0 - Fatty (change of) liver, not elsewhere classified Category: Medical Plan: Healthy diet and regular exercise is encouraged. (4) Asthma: Code(s): J45.909 - Unspecified asthma, uncomplicated Category: Medical Qualifiers: Asthma severity: mild Asthma persistence: intermittent Asthma complication type: uncomplicated Qualified Code(s): J45.20 - Mild intermittent asthma, uncomplicated Plan: Asthma currently controlled on present medications. Avoid triggers such as allergies. (5) Hirsutism: Code(s): L68.0 - Hirsutism Category: Medical Plan: Patient is currently undergoing workup with gynecology and has follow up appointment in October. (6) Migraine: Code(s): G43.909 - Migraine, unspecified, not intractable, without status migrainosus Category: Medical Plan: The patient will begin a headache diary to track frequency, duration, and potential triggers of her headaches. Sumatriptan will be prescribed for acute headache management, with instructions to take at the onset of symptoms. If headaches persist, further evaluation by neurology may be considered. Normal neuro exam today. (7) Bilateral hip pain: Code(s): M25.551 - Pain in right hip; M25.552 - Pain in left hip Category: Medical Plan: For bilateral hip pain patient is requesting to have XR which was ordered today. She does also have family history of RA and would like blood work ordered. I offered patient PT eval which was declined today. Tylenol, ibuprofen and heating pads as needed. (8) Neck pain: Code(s): M54.2 - Cervicalgia Category: Medical Plan: Patient c/o neck pain and does have curvature of the cervical spine plan to obtain XR for further evaluation. Plan For hypercholesterolemia, dietary modifications and increased physical activity are recommended to lower cholesterol levels. The patient is advised to avoid high-cholesterol foods and focus on a balanced diet. Musculoskeletal concerns will be further evaluated with x-rays of the cervical spine and hips to assess for scoliosis or arthritis. Rheumatoid factor testing will be conducted to rule out rheumatoid arthritis. Vitamin D supplementation of 25 mcg daily is recommended to address the deficiency. The patient is encouraged to maintain adequate hydration and monitor for any changes in symptoms. This note was constructed using voice recognition software. While every effort has been made to ensure accuracy and inspection clerk, still areas may have been included sometimes these areas may affect the content or meeting of the given symptoms. Total time spent caring for the patient today was 30 minutes. This includes time spent before the visit reviewing the chart, time spent during the visit, and time spent after the visit and documentation. Patient was informed and verbally consented to the use of an ambient scribe for clinic note documentation during this visit. Orders: Orders XR cervical spine 2V 10/11/24 M54.2 - Cervicalgia XR hip BI w PEL1V 10/11/24 M25.551 - Pain in right hip, M25.552 - Pain in left hip Rheumatoid Factor 10/11/24 M25.551 - Pain in right hip, M25.552 - Pain in left hip, M54.2 - Cervicalgia Medications: New sumatriptan succinate take 1 tab at onset of headache; if no relief may repeat 1 tab after at least 2 hrs; max = 4 tabs/24 hr PO 30 tabs 0RF cholecalciferol (vitamin D3) 25 mcg PO DAILY 90 caps 3RF Discontinued sulfamethoxazole-trimethoprim 800-160 mg (Bactrim DS) Discontinued Reason: Patient no longer taking 1 tab PO Q12H 7 days 14 tabs 0RF
[2024-10-11 14:57] VITALS: BP 110/62; BMI 41.8
--- OUTSIDE RECORDS SUMMARY | 2024-10-11 16:06 | XMS_ITS | Clinical Summary ---
Author Organization [facility] Address [address] [place] [address] Phone Care Team Providers Care Cellar Supervisor Name Role Phone Yary Espinal MD Primary Care Provider Unava ilable Active Problems Problem Noted Date Diagnosed Date Bunion Overview (04/15/2017): Had R bunion repair surgery 05/2015 at [facility] with good result. May need to have [...] *Heart Disease, No family history of *Sudden /[place] under 55, Family history of Cancer - [...] 98 03/29/2016 12:00 AM EST Temperature 36.6 C (97.8 F) 03/29/2016 12:00 AM EST Respiratory Rate - - Oxygen [...] 12/07/2018 12/07/2008, 04/09/1999, 10/03/1998, Additional history exists COVID-19 Vaccine ( season) 2023 Influenza Vaccines (#1) 2024 01/04/20 16, 12/22/2014, 12/09/2013, Additional history exists HIB Vaccines Aged Out 10/03/1998, 05/01, 01/16/1998, Additional history exists No longer eligible based on patient's age to complete this topic Hepatitis B Vaccines Completed 10/03/1998, 01/16/1998, 1997 IPV Vaccines Completed 04/09/1999, 02/0 11/1998, 03/13/1998, Additional history exists MMR Vaccines [...] complete this topic Procedures * Due to [place] [employer] law, this organization might not be sharing sensitive test results. Procedure Name Priority Date/Time Associated Diagnosis Comments CHLAMYDIA AND GONORRHEA, AMPLIFIED Routine 10/05/2015 2:02 PM EDT from Last 3 Months or Most Recently Relevant to Health Maintenance Results * Due to [place] [employer] law, this organization might not be sharing sensitive test results. * Chlamydia and Gonorrhoea, Amplified (10/05/2015 2:02 PM EDT) [facility] URINE GC AMP PROBE NEGATIVE [facility] Comment: No Neisseria Gonorrhoeae RNA detected in this patient's sample (REFERENCE RANGE/NORMAL VALUE: NOT DETECTED) NOTE: This test uses whirley operator-mediated amplification method to detect rRNA from [...] without risk of sexual abuse. Consult the [facility] if needed. Contact phone number . Therapeutic failure or success cannot be determined with the Aptima Combo2 assay since nucleic acid may persist following appropriate antimicrobial therapy. The Centers for Disease Control and Prevention (CDC) recommends confirmatory retesting using culture or a different nucleic acid amplification test when positive results occur, if indicated. Testing performed or reported by [facility], a Service of [facility], [address], [place] [address] CLIA [id number] Luca Luo MD, PhD, Scientific Affairs Manager URINE CHLAMYDIA AMP PROBE NEGATIVE [facility] Comment: No Chlamydia Trachomatis RNA detected in this patient's sample (REFERENCE RANGE/NORMAL VALUE: NOT DETECTED) 10/05/2015 2:02 PM EDT Narrative [facility] - 10/05/2015 2:02 PM EDT URINE CHLAMYDIA GC AMP PROBE us Yary Espinal MD LAB MICROBIOLOGY - GENERAL O RDERABLES Final Result [facility] [address] [place] [id number], from Last 3 Months or Most Recently Relevant to Health Maintenance Care Teams Cellar Supervisor Relationship Specialty Start Date End Date Yary Espinal MD PCP - General 11/08/16
--- OUTSIDE RECORDS SUMMARY | 2024-10-11 16:06 | XMS_ITS | Data Portability ---
Author Organization JOHN James s [address] Address [address] [place] [address] Assessment No assessment recorded. Plan of Treatment [...] mg-0.5 mg/mL ear drops,suspe nsion 2022 023 [facility] #[id number], [address], [place], [address], 15:36:08 Patient TargetsNo targets recorded. Patient Instructions Encounter Date Encounter Id Patient Instructions Last Modified By Organization Details Last Modified Time 10/10/2022 [id number] earache: care instructions Not available 10/10/2022 15:36:06 ear infection (otitis media): care instructions Not available 10/10/2022 15:36:06 Based on your [...] if you have any questions or concerns. [email or web address] Not available 10/10/2022 15:37:23 Reason for Referral None Reported. Problems No Known Problems Procedures Surgical History Date Name Laterality Status Provider Name and Address Organization Details Recorded Time Cerumen Removal by Irrigation completed Ligia Bal [facility] 10/10/2022 15:24:48 Imaging Results None [...] Address Organization Details Last Updated DateTime 3 79929.3 2 g 41.6 kg/m2 154.94 cm 95 % 95 % 67 /min 18 /min 97.9 [degF] 116/78 mm[Hg] Ligia Pompa PA - [facility] 3 14:22:38 Social History Question Answer Notes LastModified by VANDOLAY Details LastModified Time Tobacco Smoking Status Never [...] Functional Status Question Answer Note LastModified by [email or web address] Details LastModified Time Do you use any [...] or 50 mcg/0.25mL dose 1 completed Ligia Maspeth null, PA - [facility] 10/10/2022 14:20:33 [...] or 25mcg/0.25 mL dose 2 completed Ligia Maspeth null, PA - [facility] 10/10/2022 14:20:33 Hep A, ped/adol, 2 dose 6 completed Ligia Maspeth null, PA - [facility] 10/10/2022 14:20:33 meningococcal MCV4P 6 completed Ligia Maspeth null, [place] - [facility] 10/10/2022 14:20:33 Influenza, split virus, quadrivalent, PF 0 completed Ligia Aletha null, PA - [facility] 10/10/2022 14:20:33 Influenza, split virus, quadrivalent, PF 5 completed Ligia Maspeth null, [place] - [facility] 10/10/2022 14:20:33 Influenza, split virus, quadrivalent, PF completed JOHN Jones [facility] 10/10/2022 14:20:33 Past Encounters Encounter ID Performer Location Encounter Start Date Encounter Closed Date Diagnosis/Indication Diagnosis SNOMED-CT Code Diagnosis ICD10 Code Diagnosis Note [id number] [address] [place] [address] 03/31/2021 17:14:13 03/31/2021 19:18:11 [id number] JOHN YI [id number] [place] [address] 10/10/2022 14:13:14 10/10/2022 15:38:27 Impacted cerumen in right ear [id number] 264404 H61.21 Health Concerns Section Related Observation LastModified by Organization Detai ls LastModified Time None Recorded Concern Status LastModified by Organization Details LastModified Time None Recorded Advance Directives Directive None Recorded Payers Insurance Date Sequence Insurance Name Policy Number Policy Chahal Covered Member ID Chahal Member ID Guarantor Name 10/18/2022 1 [employer] [id number] Roxy Ita [id number] Roxy Jean Baptiste Notes Date Note Type Note Provider Name and Address Organization Details Recorded Time 10/10/2022 text/html Ear Pain Brief HPIReported bypatient.Notes:26 y.o female pt presents with clogged right ear x 1 day. Pt has been swimming. She denies pain, or discharge. JOHN YI [facility], [phone], JOHN - [facility] 10/10/2022 15:38:57 OBGyn Episode No OBEpisode recorded.
== END 2024-10-11 15:56 | disposition home or self-care (01) ==
LOC: HO.HMCH 14:52
PROVIDERS: PCP Internal Medicine
DX: F41.9 Anxiety disorder, unspecified (principal); E78.5 Hyperlipidemia, unspecified; K76.0 Fatty (change of) liver, not elsewhere classified; J45.20 Mild intermittent asthma, uncomplicated; L68.0 Hirsutism; G43.909 Migraine, unspecified, not intractable, without status migrainosus; M25.551 Pain in right hip; M25.552 Pain in left hip; M54.2 Cervicalgia

== ENCOUNTER → 2024-10-11 14:51 | Outpatient (BNVA) | payer BC, SELFPAY | PROVIDERS: PCP Internal Medicine | DX: F41.9 Anxiety disorder, unspecified (principal); E78.5 Hyperlipidemia, unspecified; K76.0 Fatty (change of) liver, not elsewhere classified; J45.20 Mild intermittent asthma, uncomplicated; L68.0 Hirsutism; G43.909 Migraine, unspecified, not intractable, without status migrainosus; M25.551 Pain in right hip; M25.552 Pain in left hip; M54.2 Cervicalgia; Z13.39 Encounter for screening examination for other mental health and behavioral disorders; Z13.30 Encounter for screening examination for mental health and behavioral disorders, unspecified | CPT/HCPCS: 96127 ==

== ENCOUNTER 2024-10-12 13:48 | Outpatient (REF) | payer BC, SELFPAY ==
--- OUTSIDE RECORDS SUMMARY | 2024-03-16 06:15 | XMS_ITS ---
Author Organization [facility] Address [address] [place] [address] Care Team Providers Care Development And Planning Engineer Name Role Phone Tamela Hopkins MD Primary Care Provider Khushboo Cancino [phone] Medications Medication SIG (Take, Route, Fr equency, Duration) Notes Start Date End Date Status Kyleena 19.5 MG as directed Intrauterine Active Albuterol Sulfate HFA Active Encounters Encounter Location Date Provider Diagnosis [facility] [address] [place] [address] 03/16/2024 Khushboo Guo Plan Of Treatment No Information Progress Notes * Roxy YOUNGER LDOB:1995 (28 yo F)Acc No.[id number]:03/16/2024 Progress Notes Patient: Kristen CALIeyad Abebe Provider: Mis Guo DPM :1995 A ge:28 Y S ex:Female Date:03/16/2024 [facility] Pcp:Tamela Hopkins MD Subjective: * Chief Complaints: [...] 1 05/17/2023 Generated for Joseph Harper/Ghazal on: 0 10/12/2024 03:10 PM EDT History and Physical Notes * HPI (History of Present Illness) Category Sub-Category Detail Notes Category Not es Wart Pt States Last PCP Visit: Date:: 09/14/2023
--- NOTE | ~2024-10-12 | XR_ITS ---
EXAMINATION: XR BILATERAL HIPS WITH AP PELVIS CLINICAL INFORMATION: M25.551 - Pain in right hip COMPARISON: None available. TECHNIQUE: AP and frog-leg lateral views of each hip and an AP view of the pelvis. FINDINGS: T-shaped IUD projects right of midline in the upper pelvis. SI joints are symmetrical without degenerative changes. The pelvis is overall unremarkable. Right hip joint space is congruent without narrowing. There are no osteophytes. There is no soft tissue calcification. Lateral Center edge angle measures 22 degrees. Left hip joint space is congruent without narrowing. There are no osteophytes. There is no soft tissue calcification. Lateral Center edge angle measured 20 degrees. XR/XR hip BI w PEL1V IMPRESSION: Borderline developmental dysplasia of the hip, right greater than left. Electronically signed by: Reynaldo Rodriguez MD 10/12/2024 02:20 PM EDT
--- NOTE | ~2024-10-12 | XR_ITS ---
EXAMINATION: XR CERVICAL SPINE CLINICAL INFORMATION: M54.2 - Cervicalgia COMPARISON: None available. TECHNIQUE: AP lateral and atlantoodontoid views FINDINGS: Craniocervical junction is intact No acute cortical disruption or malalignment. Reverse curvature apex at C5-6. No lytic or blastic lesions. Upper airways patent. XR/XR cervical spine 2V IMPRESSION: Reverse curvature at C5-6. Electronically signed by: Luiz Low MD 10/12/2024 02:18 PM EDT
--- OUTSIDE RECORDS SUMMARY | 2024-10-12 15:11 | XMS_ITS | Clinical Summary ---
Author Organization [facility] Address [address] [place] [address] Phone Care Team Providers Care Mastic Sprayer Name Role Phone Yary Espinal MD Primary Care Provider Unava ilable Active Problems Problem Noted Date Diagnosed Date Bunion Overview (04/15/2017): Had R bunion repair surgery 05/2015 at [facility] with good result. May need to [...] complete this topic Procedures * Due to [place] [employer] law, this organization might not be sharing sensitive test results. Procedure Name Priority Date/Time Associated Diagnosis Comments CHLAMYDIA AND GONORRHEA, AMPLIFIED Routine 10/05/2015 2:02 PM EDT from Last 3 Months or Most Recently Relevant to Health Maintenance Results * Due to [place] [employer] law, this organization might not be sharing sensitive test results. * Chlamydia and Gonorrhoea, Amplified (10/05/2015 2:02 PM EDT) [facility] URINE GC AMP PROBE NEGATIVE [facility] Comment: No Neisseria Gonorrhoeae RNA detected in this patient's sample (REFERENCE RANGE/NORMAL VALUE: NOT DETECTED) NOTE: This test uses mini shifter-mediated amplification method to detect rRNA from C.Trachomatis [...] without risk of sexual abuse. Consult the [facility] if needed. Contact phone number . Therapeutic failure or success cannot be determined with the Aptima Combo2 assay since nucleic acid may persist following appropriate antimicrobial therapy. The Centers for Disease Control and Prevention (CDC) recommends confirmatory retesting using culture or a different nucleic acid amplification test when positive results occur, if indicated. Testing performed or reported by [facility], a Service of [facility], [address], [place] [address] CLIA [id number] Luca Luo MD, PhD, Pre Assembly Wirer URINE CHLAMYDIA AMP PROBE NEGATIVE [facility] Comment: No Chlamydia Trachomatis RNA detected in this patient's sample (REFERENCE RANGE/NORMAL VALUE: NOT DETECTED) 10/05/2015 2:02 PM EDT Narrative [facility] - 10/05/2015 2:02 PM EDT URINE CHLAMYDIA GC AMP PROBE us Yary Espinal MD LAB MICROBIOLOGY - GENERAL O RDERABLES Final Result [facility] [address] [place] [id number], from Last 3 Months or Most Recently Relevant to Health Maintenance Care Teams Mastic Sprayer Relationship Specialty Start Date End Date Yary Espinal MD PCP - General 11/08/16
== END 2024-10-12 13:49 | disposition home or self-care (01) ==
LOC: HO.XRAY 13:48
DX: M25.551 Pain in right hip (principal); M25.552 Pain in left hip; M54.2 Cervicalgia
CPT/HCPCS: 36415; 72040; 73521; 86431

== ENCOUNTER → 2024-10-12 13:57 | Outpatient (BNV) | payer BC, SELFPAY | PROVIDERS: Visit Provider Radiology Diagnostic Radiology | DX: M25.551 Pain in right hip (principal); M40.202 Unspecified kyphosis, cervical region | CPT/HCPCS: 72040; 73521 ==

== ENCOUNTER 2024-11-09 15:35 | Outpatient (AMB) | payer BC, SELFPAY ==
--- OUTSIDE RECORDS SUMMARY | 2024-03-16 06:15 | XMS_ITS ---
Author Organization [facility] Address [address] [place] [address] Care Team Providers Care Review Nurse Name Role Phone Tamela Hopkins MD Primary Care Provider Khushboo Cancino [phone] Medications Medication SIG (Take, Route, Fr equency, Duration) Notes Start Date End Date Status Kyleena 19.5 MG as directed Intrauterine Active Albuterol Sulfate HFA Active Encounters Encounter Location Date Provider Diagnosis [facility] [address] [place] [address] 03/16/2024 Khushboo Guo Plan Of Treatment No Information Progress Notes * Roxy YOUNGER LDOB:1995 (28 yo F)Acc No.[id number]:03/16/2024 Progress Notes Patient: Kristen CALIeyad Abebe Provider: Mis Guo DPM :1995 A ge:28 Y S ex:Female Date:03/16/2024 [facility] [place] Pcp:Tamela Hopkins MD Subjective: * Chief Complaints: [...] 05/17/2023 Generated for Joseph Harper/Ghazal on: 0 11/09/2024 04:21 PM EDT History and Physical Notes * HPI (History of Present Illness) Category Sub-Category Detail Notes Category Not es Wart Pt States Last PCP Visit: Date:: 09/14/2023
--- NOTE | 2024-11-09 15:36 | MHC.OFFVIS ---
Intake Visit Reasons: US follow up Allergies bee pollen (BEE STINGS) Allergy (Severe, Verified 10/11/24 15:16) SWELLING HPI Comments Details: The patient scheduled telehealth visit for an ultrasound follow-up appointment 09/22 pelvic ultrasound showed the following: IMPRESSION: Unremarkable pelvic ultrasound. TSH, prolactin within normal Testosterone total and free with 17 hydroxyprogesterone either normal Pap smear negative GC/CT was negative The patient notes that since she had Kylena inserted hirsutism has started and getting worse [facility] Medical History Hidradenitis suppurativa Sleep apnea ADHD Cholelithiasis Abdominal pain Anxiety Fatigue Tremor Asthma Surgical History Status post laparoscopic cholecystectomy History of cholecystectomy H/O foot surgery Family History Father No problems noted. Mother No problems noted. Brother No problems noted. Sister No problems noted. Other Substance use disorder Social History Housing: House Are you a primary summer child caregiver to a significant other at home: No Do you presently have visiting nurse or other home services: No Alcohol intake: current Alcohol intake frequency: a few times a week Patient Tobacco Use Status: Never used Tobacco e-Cigarette/Vaping Use: Never Used Substance Use Type: Marijuana service: No Current occupational status: employed Sexual orientation: Straight/Heterosexual Gender identity: Female Cognitive needs: No Hearing needs: No Vision needs: Yes (Glasses) Female Reproductive History Menstrual Age of Menarche: 14 Review of Systems Const All systems reviewed & are unremarkable except as noted in HPI and below Reports as per HPI and Reports no additional complaints GI Reports no additional complaints Reports no additional complaints Telehealth Telehealth Telehealth Platform: Telephone Location of provider rendering services: practice address Location of patient: address on file Patient Identification confirmed using: Name, : Yes Telehealth method: video Patient verbally consented to treatment: Yes Patient verbally consented to billing insurance company: Yes Patient informed of any privacy concerns related to visit: Yes Minutes spent on Phone/Video with Pt.: 7 Assessment & Plan Assessment & Plan (1) Hirsutism: Comment: On Kyleena Code(s): L68.0 - Hirsutism Category: Medical Plan: Discussed with the patient the results of her workup including negative androgen levels TSH and prolactin, normal ultrasound and with regular menstrual cycles therefore the patient does not fit criteria for PCOS Discussed with the patient the possible causes of hirsutism including but not limited to Kyleena related or other idiopathic causes, recommended Kyleena IUD removal and initiation on control pills and if hirsutism does not improve refer to Reproductive Endocrinology within 3 months. All questions answered, the patient verbalized understanding agreed with the plan. Instructions given to patient to schedule an appointment for Kyleena removal with initiation of control pills I spent a total of 20 minutes reviewing the chart, talking to the patient via video and documenting in the medical record. Coding Level of Care Code Tele Est Pt Level 3 (02124) Diagnoses Hirsutism L68.0
--- OUTSIDE RECORDS SUMMARY | 2024-11-09 16:21 | XMS_ITS | Clinical Summary ---
Author Organization [facility] Address [address] [place] [id number] Phone Care Team Providers Care Actuarial Trainee Name Role Phone Yary Espinal MD Primary Care Provider Unava ilable Active Problems Problem Noted Date Diagnosed Date Bunion Overview (04/15/2017): Had R bunion repair surgery 05/2015 at [facility] with good result. May need to [...] *Heart Disease, No family history of *Sudden /PA under 55, Family history of Cancer - [...] complete this topic Procedures * Due to [place] [employer] law, this organization might not be sharing sensitive test results. Procedure Name Priority Date/Time Associated Diagnosis Comments CHLAMYDIA AND GONORRHEA, AMPLIFIED Routine 10/05/2015 2:02 PM EDT from Last 3 Months or Most Recently Relevant to Health Maintenance Results * Due to [place] [employer] law, this organization might not be sharing sensitive test results. * Chlamydia and Gonorrhoea, Amplified (10/05/2015 2:02 PM EDT) [facility] URINE GC AMP PROBE NEGATIVE [facility] Comment: No Neisseria Gonorrhoeae RNA detected in this patient's sample (REFERENCE RANGE/NORMAL VALUE: NOT DETECTED) NOTE: This test uses burring machine operator-mediated amplification method to detect rRNA [...] without risk of sexual abuse. Consult the [facility] if [...] if indicated. Testing performed or reported by [facility], a Service of [facility], [address], [place] [address] CLIA [id number] Luca Luo MD, PhD, Disability Attorney URINE CHLAMYDIA AMP PROBE NEGATIVE [facility] Comment: No Chlamydia Trachomatis RNA detected in this patient's sample (REFERENCE RANGE/NORMAL VALUE: NOT DETECTED) 10/05/2015 2:02 PM EDT Narrative [facility] - 10/05/2015 2:02 PM EDT URINE CHLAMYDIA GC AMP PROBE us Yary Espinal MD LAB MICROBIOLOGY - GENERAL O RDERABLES Final Result [facility] [address] [place] [id number], from Last 3 Months or Most Recently Relevant to Health Maintenance Care Teams Actuarial Trainee Relationship Specialty Start Date End Date Yary Espinal MD PCP - General 11/08/16
--- OUTSIDE RECORDS SUMMARY | 2024-11-09 16:21 | XMS_ITS | Clinical Summary ---
Author Organization [facility] Address [address] [place] [address] Phone Care Team Providers Care Therapist Radiation Name Role Phone Peace Blanco Primary Care Provide r Medications albuterol 90 mcg/actuation inhaler Albuterol Sulfate HFA Active Active Problems No known active problems Encounters Date Type Department Care Team Description 09/05/2024 1:30 PM EDT Office Visit [facility] [address] [place] [address] Liliam Jones PA-C Allergic reaction, initial encounter (Primary Dx) from Last 3 Months Social History Tobacco Use Types Packs/Day Years Used Date Smoking Tobacco: Never Assessed Education Answer Date Recorded Are you interested in more education? Not on porfirio e 09/05/2024 Are you concerned about learning? Not on file 09/05/2024 No 09/05/2024 No 09/05/2024 Digital Access Answer Date Recorded No 09/05/2024 No 09/05/2024 Reliable internet access at home? Not on file 09/05/2024 Device with a working camera? Not on file Comments Unknown Sex and Gender Information Value Date Recorded Sex Assigned at Not on file Legal Sex Female 1:19 PM EDT Gender Identity Not on file Sexual Orientation Not on file Last Filed Vital Signs Vital Sign Reading Time Taken Comments Blood Pressure 110/73 09/05/2024 1:41 PM EDT Pulse 82 09/05/2024 1:41 PM EDT Temperature 36.4 C (97.5 F) 09/05/2024 1:41 PM EDT Respiratory Rate - - Oxygen Saturation 97% 09/05/2024 1:41 PM EDT Inhaled Oxygen Concentration - - Weight 102.1 kg (225 lb) 09/05/2024 1:41 PM EDT Height 154.9 cm (5' 1 ) 09/05/2024 1:41 PM EDT Body Mass Index 42.51 09/05/2024 1:41 PM EDT Plan of Treatment Health Maintenance Due Date Last Done Comments DEPRESSION SCREENING 2009 SMOKING Hx and SMOKELESS TOBACCO SCREENING 2010 HPV VACCINES (1 - 3-dose series) 2012 HEPATITIS C SCREENING 11/19/2015 HIV ONE-TIME SCREENING (18-65 YEARS) 11/19/2015 HEPATITIS A VACCINES (2 of 2 - 2-dose series) 04/05/2016 10/04/2015 PAP SMEAR 2018 Adult Td,Tdap Booster 12/07/2018 12/07/2008 COVID-19 VACCINE ( season) 2023 03/28/2023, 01/09/2022, 07/31/2021, Additional history exists MENINGOCOCCAL VACCINES (ACWY) Completed 01/04/2016 HIB VACCINES Aged Out No longer eligi ble based on patient's age to complete this topic MENINGOCOCCAL VACCINES (B) Aged Out N o longer eligible based on patient's age to complete this topic PNEUMOCOCCAL VACCINES (0-49 years) Aged Out No longer eligible based on patient's age to complete this topic Medical Devices Not on file Insurance [facility] [place] [address] [facility] Care Teams Therapist Radiation Relationship Specialty Start Date End Date Peace Blanco PA [address] [place] [address] [place] [address] PCP - General Physician Packing And Wrapping Supervisor 09/05/24 Additional Source Comments The information contained in this document represents components of the legal health record. It is not the complete legal health record.[facility]
== END 2024-11-10 10:16 | disposition home or self-care (01) ==
LOC: HO.HWS 15:35
PROVIDERS: Visit Provider Obstetrics & Gynecology
DX: L68.0 Hirsutism (principal)
CPT/HCPCS: 99213

== ENCOUNTER 2024-11-30 15:51 | Outpatient (RCR) | payer BC, SELFPAY ==
--- NOTE | 2024-12-02 14:38 | MHC.PT.EP ---
[facility] [place] Office [place] Office [place] Office [address] [phone] F: [phone] F: [phone] F: [phone] F: [phone] Physical Therapy Plan of Care Date of Evaluation: 11/30/24 Date of Surgery: n/a Diagnosis: Pain in right hip Pain in left hip Other specified congenital deformities of hip Bilateral hip pain *hip dysplasia Assessment: Pt is a pleasant and motivated 29yo F who presents to PT with B hip pain, L>R. She reports intermittent radicular symptoms into LLE. She presents to PT with current impairments in pain, decreased ROM, decreased core stabilization, decreased hip/glute strength, and impaired gait. She is limited functionally by LE ADLs, sitting on the floor, prolonged standing, stair navigation, and laying on her side. She is a good candidate for skilled PT in order to address current impairments to facilitate return to PLOF. She is recommended to be seen 2x/week for 4 weeks and will be reassessed at that time Frequency and Duration: The patient will be seen 2x/week for 4 weeks Short Term Goals: Pt will be I with HEP to promote self management of symptoms Pt will improve B hip ER ROM by at least 5 degrees to assist with LE ADLs Playground Official Goals: Pt will perform LE ADLs without pain or compensation Pt will perform prolonged standing and walking > 1 hour with pain < 2/10 Pt will demonstrate improvements in function as evidenced by statistically significant improvement in LEFI outcome measure Treatment Plan: Modalities to reduce pain, spasms and effusion. Manual therapy to restore motion and function. Therapeutic exercise to improve strength and flexibility. Neuromuscular re-education for posture and balance. Therapeutic activities to return to functional activities of daily living. Electronically signed by: Kiki Choudhary, PT, DPT Please sign and return to therapist. Thank you for your referral.
--- NOTE | 2025-02-03 08:31 | MHC.PT.DC ---
[facility] [place] Office [place] Office [place] Office [address] Frances Messer [address] [phone] F: [phone] F: [phone] F: [phone] F: [phone] Physical Therapy Discharge Report Diagnosis: Pain in right hip Pain in left hip Other specified congenital deformities of hip Bilateral hip pain *hip dysplasia Date of Surgery: n/a Date of Evaluation: 11/30/24 Date of Discharge: 02/03/25 Treatments to Date: 1 Cancellations to Date: 8 No Shows to Date: Discharge Status: Patient Elected to Stop Visit Non-compliance Discharge Summary: Pt attended initial PT evaluation on 11/30/24. She cancelled all 8 of her scheduled appointments. She is being D/C from skilled PT per [facility] attendance policy. Pt current level of function unknown at this time Electronically signed by: Kiki Serna, PT, DPT Please sign and return to therapist. Thank you for your referral.
== END 2025-02-03 08:30 | disposition home or self-care (01) ==
LOC: HO.PT 15:51
DX: M25.551 Pain in right hip (principal); M25.552 Pain in left hip; Q65.89 Other specified congenital deformities of hip
CPT/HCPCS: 97162

== ENCOUNTER 2024-12-06 15:19 | Outpatient (AMB) | payer BC, SELFPAY ==
--- OUTSIDE RECORDS SUMMARY | 2024-03-16 06:15 | XMS_ITS ---
Author Organization [facility] Address [address] [place] [address] Care Team Providers Care Central Supply Clerk Name Role Phone Tamela Hopkins MD Primary Care Provider Khushboo Cancino [phone] Medications Medication SIG (Take, Route, Fr equency, Duration) Notes Start Date End Date Status Kyleena 19.5 MG as directed Intrauterine Active Albuterol Sulfate HFA Active Encounters Encounter Location Date Provider Diagnosis [facility] [address] [place] [address] 03/16/2024 Khushboo Guo Plan Of Treatment No Information Progress Notes * Roxy YOUNGER LDOB:1995 (29 yo F)Acc No.[id number]:03/16/2024 Progress Notes Patient: Kristen CALIeyad Abebe Provider: Mis Guo DPM :1995 A ge:28 Y S ex:Female Date:03/16/2024 [facility] [place] Pcp:Tamela Hopkins MD Subjective: * Chief Complaints: [...] 05/17/2023 Generated for Joseph Harper/Ghazal on: 0 12/06/2024 06:24 PM EDT History and Physical Notes * HPI (History of Present Illness) Category Sub-Category Detail Notes Category Not es Wart Pt States Last PCP Visit: Date:: 09/14/2023
--- NOTE | 2024-12-06 15:27 | MHC.PC.OV ---
Vital Signs 12/06/24 15:29 Height 5 ft 1 in Weight 219 lb 4 oz BMI 41.4 BP 120/70 Blood Pressure Location Lt brachial Position Sitting Pulse 94 Pulse Source Pulse Oximeter Pulse Oximetry (%) 97 Oxygen Delivery Method Room Air Intake Visit Reasons: f/u migraines r/s today to OV Varnish Supervisor Required: No Accompanied by: Self / Same As Patient Allergies bee pollen (BEE STINGS) Allergy (Severe, Verified 12/06/24 15:36) SWELLING Medication List - Last Reconciled 12/06/24 by Peace Blanco PA-C albuterol sulfate 90 mcg/actuation 2 puffs inhalation Q6H PRN bupropion HCl XL (Wellbutrin XL) 150 mg PO QAM cholecalciferol (vitamin D3) 25 mcg PO DAILY levonorgestrel (Kyleena) 1 device intrauterine ONCE sumatriptan succinate take 1 tab at onset of headache; if no relief may repeat 1 tab after at least 2 hrs; max = 4 tabs/24 hr PO Tobacco use date assessed: 12/06/24 Dental Screening Dental Screen Date: 12/06/24 Did you have a dental visit in the last 12 months?: Yes Did you have a dental problem in the last 6 months where you did not have access to dental care?: No Was dental information given to patient?: Patient has dentist HPI f/u migraines r/s today to OV HPI Details 28-year-old female with past medical history of asthma, anxiety, tremor, fatty liver disease, hyperlipidemia last seen 09/2024 coming in for follow up. In review of the notes, patient was seen by Gynecology 10/2024 for hirsutism recommending Kyleena IUD removal and initiation of control pills and consider referral to Reproductive Endocrinology. Presenting with headaches, hip dysplasia, and breast hypertrophy. The patient experiences headaches, sometimes nocturnal, associated with neck stiffness, and uses sumatriptan with variable success. She maintains a headache diary, noting a correlation between neck tightness and headache onset. Diagnosed with hip dysplasia, the patient reports more symptoms in the left hip despite imaging showing more right-sided involvement. She is undergoing physical therapy twice weekly. The patient reports back pain and spasms due to breast hypertrophy, affecting daily life and exercise, and is considering reduction surgery. Previously diagnosed with mild sleep apnea, managed with positional therapy and weight management advice. NANCY may be contributing to headaches. [facility] Medical History Hidradenitis suppurativa Sleep apnea ADHD Cholelithiasis Abdominal pain Anxiety Fatigue Tremor Asthma Surgical History Status post laparoscopic cholecystectomy History of cholecystectomy H/O foot surgery Family History Father No problems noted. Mother No problems noted. Brother No problems noted. Sister No problems noted. Other Substance use disorder Social History Housing: House Are you a primary child adolescent care to a significant other at home: No Do you presently have visiting nurse or other home services: No Alcohol intake: current Alcohol intake frequency: a few times a week Patient Tobacco Use Status: Never used Tobacco e-Cigarette/Vaping Use: Never Used Substance Use Type: Marijuana service: No Current occupational status: employed Sexual orientation: Straight/Heterosexual Gender identity: Female Cognitive needs: No Hearing needs: No Vision needs: Yes (Glasses) Female Reproductive History Menstrual Age of Menarche: 14 Questionnaire PHQ-9 Over the last 2 weeks, how often have you been bothered by any of the following problems? 1. Little interest or pleasure in doing things: more than half the days 2. Feeling down, depressed, or hopeless: more than half the days 3. Trouble falling or staying asleep, or sleeping too much: not at all 4. Feeling tired or having little energy: more than half the days 5. Poor appetite or overeating: more than half the days 6. Feeling bad about yourself - or that you are a failure or have let yourself or your family down: nearly every day 7. Trouble concentrating on things, such as reading the newspaper or watching television: more than half the days 8. Moving or speaking so slowly that other people could have noticed. Or the opposite - being so fidgety or restless that you have been moving around a lot more than usual: not at all 9. Thoughts that you would be better off or of hurting yourself in some way: not at all Total score: 13 50593 - PHQ-9 Billing: Yes Source: Developed by Drs. Venkatesh Mason, Kristina Fleming, Koko Emmanuel and colleagues, with an educational elliot from [employer]. Thrive Questionnaire Date Thrive assessed: 12/06/24 I am a: Patient What is your living situation today?: I have a steady place to live Within the past 12 months, did the food you bought not last and you didn't have the money to get more?: Never true Within the past 12 months, did you worry whether your food would run out before you got money to buy more?: Never true Do you have trouble paying for medicines?: No Do you have trouble getting transportation to medical appointments?: No Do you have trouble paying your heating and electricity bill?: No Do you have trouble taking care of your child, family member or friend?: No Do you have trouble with day-to-day activities such as bathing, preparing meals, shopping, managing finances, etc.?: No Are you currently unemployed and looking for a job?: No Are you interested in more education?: No Please select the resources that you would like help with: None Currently or been in a relationship where the following occur: No concerns reported THRIVE Score: 0 AUDIT C Alcohol Use Questionnaire (AUDIT-C) 1. How often do you have a drink containing alcohol?: Never Total Score: 0 DIMAS-7 AMB Questionnaire DIMAS-7 Date DIMAS - 7 assessed: 12/06/24 Feeling nervous, anxious, or on edge: 3 = Nearly every day Not being able to stop or control worryin = Nearly every day Worrying too much about different things: 3 = Nearly every day Trouble relaxin = Nearly every day Being so restless that it is hard to sit still: 3 = Nearly every day Becoming easily annoyed or irritable: 2 = More than half the days Feeling afraid as if something awful might happen: 1 = Several days Total DIMAS-7 score (0-4 normal; 5-9 mild; 10-14 moderate; 15-21 severe): 18 Source: Developed by Kristina Leiva Kurt Kroenke and colleagues, with an educational elliot from [employer]. DIMAS-7 Assessment Billing DIMAS-7 Assessment Tool: DIMAS-7 Assessment 20924 Review of Systems Const Denies body aches, Denies chills, Denies fever(s), Reports headache(s) and Denies poor appetite Eyes Reports no additional complaints ENT Denies dizziness and Reports headache(s) Card Denies chest pain, Denies edema, Denies lightheadedness and Denies dyspnea Resp Denies cough and Denies dyspnea GI Denies abdominal pain, Denies nausea and Denies vomiting Reports no additional complaints Musc Reports no additional complaints and Denies abnormal gait Skin/Breast Reports system reviewed and no additional complaints, except as documented Neuro Denies abnormal gait, Denies dizziness and Reports headache(s) Psych Reports no additional complaints Physical exam (Primary Care) Vital Signs: Last Vital Signs Pulse 94 12/06/24 15:29 BP 120/70 12/06/24 15:29 Pulse Ox 97 12/06/24 15:29 Oxygen Delivery Method Room Air 12/06/24 15:29 BMI result Body Mass Index 41.4 Tobacco/Smoking Status: Tobacco use Status Tobacco use date assessed 12/06/24 12/06/24 15:35 Patient Tobacco Use Status Never used Tobacco 12/06/24 15:35 e-Cigarette/Vaping Use Never Used 12/06/24 15:35 PHQ-9: PHQ-9 Score PHQ-9: Total score 13 12/06/24 16:05 Thrive Assessment: Date of Thrive Assessment Date Thrive assessed 12/06/24 12/06/24 15:35 Currently or been in a relationship where the following occur: No concerns reported Const General: cooperative, healthy appearing, comfortable and no acute distress Orientation/consciousness: patient oriented x3 [facility] Head: Yes normocephalic Ears: hearing grossly normal bilaterally General nose exam: Normal external nose present Eyes General: appearance normal, both eyes and all related structures Conjunctivae: conjunctivae normal Neck Neck: Yes full ROM and Yes no lymphadenopathy Resp Effort & Inspection: normal respiratory effort Auscultation: clear to auscultation bilaterally, no crackles, no rales, no rhonchi and no wheezes Cardio Rate: regular rate Rhythm: regular rhythm Skin General skin exam: no rashes or lesions noted Neuro General: patient oriented x3 Gait exam (Neuro): Normal gait present Extrem General: Yes normal to inspection, Yes full ROM and No edema Psych Affect: normal affect Attitude: cooperative Insight: Good insight present (Psych) Judgement: Good judgement present (Psych) Coding Level of Care Code Est Pt Level 4 (55539) Diagnoses Hyperlipidemia E78.5 Fatty liver K76.0 Hirsutism L68.0 Migraine G43.909 Bilateral hip pain M25.551; M25.552 Neck pain M54.2 Obstructive sleep apnea G47.33 Large breasts N62 Additional Codes DIMAS-7 Assessment Billing - DIMAS-7 Assessment Tool: DIMAS-7 Assessment 29481 ([id number]) PHQ-9 - 02472 - PHQ-9 Billing: Yes ([id number]) Assessment & Plan Assessment & Plan (1) Hyperlipidemia: Code(s): E78.5 - Hyperlipidemia, unspecified Category: Medical Plan: Avoid foods that are high in cholesterol such as red meat, fried foods, eggs and baked goods. Triglyceride goal of less than 150 and LDL goal of less than 130. Discussed elevated cholesterol with the patient she agrees to continue to work on dietary and lifestyle modification. (2) Fatty liver: Code(s): K76.0 - Fatty (change of) liver, not elsewhere classified Category: Medical Plan: Healthy diet and regular exercise is encouraged. (3) Hirsutism: Comment: On Kyleena Code(s): L68.0 - Hirsutism Category: Medical Plan: Scheduled to have Kyleena removed and transitioned to oral control pills. Continue to follow with gynecology (4) Migraine: Code(s): G43.909 - Migraine, unspecified, not intractable, without status migrainosus Category: Medical Plan: Sumatriptan has been mildly effective. The patient will begin amitriptyline for migraine prevention and insomnia, with a neurology referral for further evaluation. Discussed side effects this medication. (5) Bilateral hip pain: Code(s): M25.551 - Pain in right hip; M25.552 - Pain in left hip Category: Medical Plan: Plan to continue to work with physical therapy at this time. (6) Neck pain: Code(s): M54.2 - Cervicalgia Category: Medical Plan: Patient states her neck pain is due to large breasts and is seeking a referral to Plastic surgery for possible reduction. Referral was placed today (7) Obstructive sleep apnea: Code(s): G47.33 - Obstructive sleep apnea (adult) (pediatric) Category: Medical Plan: Mild obstructive sleep apnea declining additional testing at this time. Per last sleep study recommending positional therapy and weight loss. Referral was placed to Neurology today for migraines and sleep apnea. (8) Large breasts: Code(s): N62 - Hypertrophy of breast Category: Medical Plan: Referral to plastic surgery for breast reduction evaluation due to back pain and spasms. Plan During the visit, we discussed the management of headaches with amitriptyline and the referral to neurology for further evaluation. We also addressed the ongoing physical therapy for hip dysplasia and the referral to plastic surgery for breast reduction due to back pain. Additionally, we reviewed the mild sleep apnea diagnosis and recommended continuing positional therapy and weight management. Follow-up appointments with neurology and plastic surgery were arranged, and the patient was advised to monitor for any side effects from the new medication. This note was constructed using voice recognition software. While every effort has been made to ensure accuracy and inventory technician, still areas may have been included sometimes these areas may affect the content or meeting of the given symptoms. Total time spent caring for the patient today was 20 minutes. This includes time spent before the visit reviewing the chart, time spent during the visit, and time spent after the visit and documentation. Patient was informed and verbally consented to the use of an ambient scribe for clinic note documentation during this visit. Orders: Referrals Neurology Referral G43.909 - Migraine, unspecified, not intractable, without status migrainosus, G47.33 - Obstructive sleep apnea (adult) (pediatric) Plastic Surgery Referral N62 - Hypertrophy of breast Medications: New amitriptyline 10 mg PO BEDTIME 90 tabs 0RF
[2024-12-06 15:29] VITALS: BP 120/70; PULSE 94; O2SAT 97; BMI 41.4
--- OUTSIDE RECORDS SUMMARY | 2024-12-06 18:25 | XMS_ITS | Encounter Summary ---
Author Organization [facility] Address [address] [place] [address] Phone Care Team Providers Care Purification Operator Name Role Phone Yary Espinal MD Primary Care Provider Unava ilable Encounter Details Date Type Department Care Team (Late st Contact Info) Description 11/14/2016 Conversion Encounter [facility] - [address] [address] Social History Tobacco Use Types Packs/Day Years [...] on filedocumented in this encounter Care Teams Purification Operator Relationship Specialty Start Date End Date Yary Espinal MD PCP - General 11/08/16 documented as of this encounter
--- OUTSIDE RECORDS SUMMARY | 2024-12-06 18:25 | XMS_ITS | Clinical Summary ---
Author Organization [facility] Address [address] [place] [address] Phone Care Team Providers Care Certified Respiratory Therapist Name Role Phone Yary Espinal MD Primary Care Provider Unava ilable Active Problems Problem Noted Date Diagnosed Date Bunion Overview (04/15/2017): Had R bunion repair surgery 05/2015 at [facility] with good result. May need to [...] *Heart Disease, No family history of *Sudden /UT under 55, Family history of Cancer - [...] 10/03/1998, Additional history exists Influenza Vaccines (#1) 2024 01/04/20 16, 12/22/2014, 12/09/2013, Additional history exists COVID-19 Vaccine ( season) 2024 HIB Vaccines Aged Out 10/03/1998, 05/01, 01/16/1998, [...] complete this topic Procedures * Due to [place] [employer] law, this organization might not be sharing sensitive test results. Procedure Name Priority Date/Time Associated Diagnosis Comments CHLAMYDIA AND GONORRHEA, AMPLIFIED Routine 10/05/2015 2:02 PM EDT from Last 3 Months or Most Recently Relevant to Health Maintenance Results * Due to [place] [employer] law, this organization might not be sharing sensitive test results. * Chlamydia and Gonorrhoea, Amplified (10/05/2015 2:02 PM EDT) [facility] URINE GC AMP PROBE NEGATIVE [facility] Comment: No Neisseria Gonorrhoeae RNA detected in this patient's sample (REFERENCE RANGE/NORMAL VALUE: NOT DETECTED) NOTE: This test uses supermarket manager-mediated amplification method to detect rRNA from [...] without risk of sexual abuse. Consult the [facility] if needed. Contact phone number . Therapeutic failure or success cannot be determined with the Aptima Combo2 assay since nucleic acid may persist following appropriate antimicrobial therapy. The Centers for Disease Control and Prevention (CDC) recommends confirmatory retesting using culture or a different nucleic acid amplification test when positive results occur, if indicated. Testing performed or reported by [facility], a Service of [facility], [address], [place] [address] CLIA [id number] Luca Luo MD, PhD, Android Programmer URINE CHLAMYDIA AMP PROBE NEGATIVE [facility] Comment: No Chlamydia Trachomatis RNA detected in this patient's sample (REFERENCE RANGE/NORMAL VALUE: NOT DETECTED) 10/05/2015 2:02 PM EDT Narrative [facility] - 10/05/2015 2:02 PM EDT URINE CHLAMYDIA GC AMP PROBE us Yary Espinal MD LAB MICROBIOLOGY - GENERAL O RDERABLES Final Result [facility] [address] [place] [address], from Last 3 Months or Most Recently Relevant to Health Maintenance Care Teams Certified Respiratory Therapist Relationship Specialty Start Date End Date Yary Espinal MD PCP - General 11/08/16
--- OUTSIDE RECORDS SUMMARY | 2024-12-06 18:25 | XMS_ITS | Clinical Summary ---
Author Organization [facility] Address [address] [place] [address] Phone Care Team Providers Care Block Trader Name Role Phone Peace Blanco Primary Care Provide r Medications albuterol 90 mcg/actuation inhaler Albuterol Sulfate HFA Active Active Problems No known active problems Encounters Date Type Department Care Team Description 09/05/2024 1:30 PM EDT Office Visit [facility] [address] [place] [address] Liliam Jones PA-C Allergic reaction, initial encounter [...] SMOKING Hx and SMOKELESS TOBACCO SCREENING 2010 HEPATITIS C SCREENING 11/19/2015 HIV ONE-TIME SCREENING (18-65 YEARS) 11/19/2015 HEPATITIS A VACCINES (2 of 2 - 2-dose series) 04/05/2016 10/04/2015 PAP SMEAR 2018 Adult Td,Tdap Booster 12/07/2018 12/07/2008 INFLUENZA VACCINE (#1) 2024 , 01/09/2022, 01/15/2021, Additional history exists COVID-19 VACCINE ( season) 2024 03/28/2023, 01/09/2022, 07/31/2021, Additional history exists MENINGOCOCCAL [...] topic Medical Devices Not on file Insurance [facility] Care Teams Block Trader Relationship Specialty Start Date End Date Peace Blanco PA [address] [place] [address] [place] [address] PCP - General Physician Director Of Outside Sales 09/05/24 Additional Source Comments The information contained in this document represents components of the legal health record. It is not the complete legal health record.[facility]
--- OUTSIDE RECORDS SUMMARY | 2024-12-06 18:25 | XMS_ITS | Patient Health Record ---
Author Organization [facility] Address [address] [facility] [place] [address] Care Team Providers Care Gaming Cage Worker Name Role Phone Tamela Hopkins MD Primary Care Provider Unavaila jaquan Guo Khushboo Unavailable [phone] WoodallDragan Unavailable [phone] Allergies Allergen (clinical drug ingredient) Drug/Non Drug [...] Status Risk Notes Problem Acquired hallux valgus (17601589) Hallux valgus (acquired), left foot (M20.12) Active confirmed Problem Plantar wart (91345745) Plantar wart (B07.0) Active confirmed Problem Acquired hallux valgus (66000209) Hallux valgus (acquired), right foot (M20.11) Active confirmed Problem Pes planus (51462950) Pes planus of right foot (M21.41) Active confirmed Problem Pes planus (71729871) Pes planus of left foot (M21.42) Active confirmed Problem Tailors bunion (4508802) Tailors bunion (M20.10) Active confirmed Vital Signs Blood pressure diastolic 70 mm Hg 01/08/2024 Height 5ft1in in 01/28/2024 Blood pressure systolic 120 mm Hg 01/08/2024 Weight 215 lbs 01/28/2024 BMI 40.62 kg/m2 01/28/2024 Encounters Encounter Location Date Provider Diagnosis [address] [address] 12/15/2023 Dragan Woodall Other viral warts B07.8 ; Pain in right foot M79.671 and Skin disease L98.[address] [address] 01/08/2024 Dragan Woodall Other viral warts B07.8 ; Pain in left foot M79.672 and Pain in right foot M79.[address] [address] 01/28/2024 Khushboo Guo Right foot pain M79.671 and Plantar wart B07.[address] [address] 12/09/[address] [address] 12/15/[address] [address] 01/28/2024 Khushboo Guo [address] [address] 03/16/2024 Khushboo Guo Assessments Encounter Date Diagnosis [...] Insured Coverage Start Date Coverage End Date [facility] [address] [facility] [place] [id number] [phone] [id number] Roxy Jean Baptiste Self - patient is the insured Medical (General) History Medical History History ICD Code Back,Hip,and Knee pain Anxiety asthma Broken bones covid-19 Depression Gall bladder problems Liver disease Warts Joint implants/screws Surgical History Surgery Date(Month/Year) bunionectomy benign tumor removal in breast 2019 gall 12/26/2023
== END 2024-12-06 16:06 | disposition home or self-care (01) ==
LOC: HO.HMCH 15:20
DX: E78.5 Hyperlipidemia, unspecified (principal); K76.0 Fatty (change of) liver, not elsewhere classified; L68.0 Hirsutism; G43.909 Migraine, unspecified, not intractable, without status migrainosus; M25.551 Pain in right hip; M25.552 Pain in left hip; M54.2 Cervicalgia; G47.33 Obstructive sleep apnea (adult) (pediatric); N62 Hypertrophy of breast

== ENCOUNTER → 2024-12-06 15:19 | Outpatient (BNVA) | payer BC, SELFPAY | DX: K76.0 Fatty (change of) liver, not elsewhere classified (principal); E78.5 Hyperlipidemia, unspecified; L68.0 Hirsutism; G43.909 Migraine, unspecified, not intractable, without status migrainosus; M25.551 Pain in right hip; M25.552 Pain in left hip; M54.2 Cervicalgia; G47.33 Obstructive sleep apnea (adult) (pediatric); N62 Hypertrophy of breast | CPT/HCPCS: 96127 ==

== ENCOUNTER 2024-12-15 10:47 | Outpatient (AMB) | payer BC, SELFPAY ==
--- OUTSIDE RECORDS SUMMARY | 2024-03-16 06:15 | XMS_ITS ---
Author Organization [facility] Address [address] [place] [address] Care Team Providers Care Steamtable Worker Name Role Phone Tamela Hopkins MD Primary Care Provider Khushboo Cancino [phone] Medications Medication SIG (Take, Route, Fr equency, Duration) Notes Start Date End Date Status Kyleena 19.5 MG as directed Intrauterine Active Albuterol Sulfate HFA Active Encounters Encounter Location Date Provider Diagnosis [facility] [address] [place] [address] 03/16/2024 Khushboo Guo Plan Of Treatment No Information Progress Notes * Roxy YOUNGER LDOB:1995 (29 yo F)Acc No.[id number]:03/16/2024 Progress Notes Patient: Kristen CALIeyad Abebe Provider: Mis Guo DPM :1995 A ge:28 Y S ex:Female Date:03/16/2024 [facility] [place] Pcp:Tamela Hopkins MD Subjective: * Chief Complaints: [...] 05/17/2023 Generated for Joseph Harper/Ghazal on: 0 12/15/2024 01:44 PM EDT History and Physical Notes * HPI (History of Present Illness) Category Sub-Category Detail Notes Category Not es Wart Pt States Last PCP Visit: Date:: 09/14/2023
[2024-12-15 10:52] VITALS: BP 130/70; PULSE 93; O2SAT 98; BMI 41.6
--- NOTE | 2024-12-15 10:52 | MHC.OFFVIS ---
Vital Signs 12/15/24 10:52 Height 5 ft 1 in Weight 220 lb BMI 41.6 BP 130/70 Blood Pressure Location Rt brachial Position Sitting Pulse 93 Pulse Source Pulse Oximeter Pulse Oximetry (%) 98 Oxygen Delivery Method Room Air Intake Visit Reasons: abnormal labs Intake Note: New patient presents today for abnormal labs. Accompanied by: Self / Same As Patient Allergies bee pollen (BEE STINGS) Allergy (Severe, Verified 12/06/24 15:36) SWELLING HPI HPI abnormal labs: Details: New patient visit SUSI 1:80. She has been experiencing for more frequent headaches. She was started on amitriptyline for the last 3 days and has not experienced a headache. She has chronic back pain, hip pain, and back spasms. Pain in hips and lower back is aggravated with standing for prolonged period of time or increase activity with walking it will hurt to walk after the next day. Denies stiffness. She has had pain in her back and hips since she could remember since childhood. Weight gain from 220 to 220lb. She had cholecystectomy and has been eating healthy. She met with a production metal sprayer but has unable to lose more weight. She started PT for hip pain 2 weeks ago for management of hip dysplasia that was seen on x-ray. Pain in muscles around the hips. She is experiencing fatigue and weakness sometimes. Denies ocular symptoms, sicca symptoms, oral ulcers, dyspnea, pleurisy, Raynaud's phenomenon, GERD or difficulty swallowing, urinary symptoms, photosensitivity, rash. She had 1 . No history of miscarriage or DVT or PE. She has a rash when she consumes gluten. She has been gluten free since cholecystectomy without recurrence of rash. Maternal aunt has rheumatoid arthritis Medical history and medications reviewed with patient. [facility], [facility] Medical History (Updated 12/15/24 @ 12:33 by Gelacio Nixon MD) Bilateral hip pain Hidradenitis suppurativa Sleep apnea ADHD Cholelithiasis Abdominal pain Anxiety Fatigue Tremor Asthma Surgical History Status post laparoscopic cholecystectomy History of cholecystectomy H/O foot surgery Family History Father No problems noted. Mother No problems noted. Brother No problems noted. Sister No problems noted. Other Substance use disorder Social History Housing: House Are you a primary healthcare science specialist to a significant other at home: No Do you presently have visiting nurse or other home services: No Alcohol intake: current Alcohol intake frequency: a few times a week Patient Tobacco Use Status: Never used Tobacco e-Cigarette/Vaping Use: Never Used Substance Use Type: Marijuana service: No Current occupational status: employed Sexual orientation: Straight/Heterosexual Gender identity: Female Cognitive needs: No Hearing needs: No Vision needs: Yes (Glasses) Female Reproductive History Menstrual Age of Menarche: 14 Physical Exam Vital Signs: Last Vital Signs Pulse 93 12/15/24 10:52 BP 130/70 12/15/24 10:52 Pulse Ox 98 12/15/24 10:52 Oxygen Delivery Method Room Air 12/15/24 10:52 BMI result Body Mass Index 41.6 Const Other: General: Comfortable CVS: RRR Respiratory: clear to auscultation bilaterally. Good respiratory effort Skin: No lesions seen MSK: No synovitis. Tender to palpate bilateral SI joints. Negative CASSY. She has pain in right hip with external rotation. Normal range of motion of upper extremity and lower extremity. No trochanteric bursa tenderness found. No tenderness of lumbar spinous process or paraspinal muscles. Good lumbar flexion. Results Reviewed Results Reviewed: Labs and x-rays reviewed in expanse. Assessment & Plan Assessment & Plan (1) SUSI positive: Comment: Low titer positive without signs or symptoms suggestive of connective tissue disease. Low clinical suspicion for connective tissue disease at this time, which was discussed with patient. Code(s): R76.8 - Other specified abnormal immunological findings in serum Category: Medical Plan: No further rheumatological workup is indicated at this time. (2) Bilateral hip pain: Comment: Personally reviewed x-rays with patient, which reveal mild bone spur of right hip with radiology concern for hip dysplasia right worse than left. We discussed conservative management to prevent progression of degenerative arthritis. Code(s): M25.551 - Pain in right hip; M25.552 - Pain in left hip Category: Medical Plan: Weight loss encouraged. She has not been able to lose weight with dietary changes and production metal sprayer referral. I recommend that she follow up with PCP for further discussion on weight management. Continue physical therapy for hip strengthening Return to clinic in 3 months (3) Low back pain: Comment: Chronic since childhood. She localizes pain to her lower lumbar spine. On exam she had tenderness of SI joints but pelvis/hip x-ray September 2024 reveals normal SI joints. We discussed conservative management. Code(s): M54.50 - Low back pain, unspecified Category: Medical Plan: L-spine x-ray ordered PT ordered for back strengthening Encouraged weight loss. She will further discuss with PCP. Return to clinic in 3 months Orders: Orders PT Evaluation and Treatment Today M25.551 - Pain in right hip, M25.552 - Pain in left hip, M54.50 - Low back pain, unspecified, Q65.89 - Other specified congenital deformities of hip XR lumbar spine 2-3V Today M54.50 - Low back pain, unspecified Coding Level of Care Code New Pt Level 4 (48330) Complex EM visit Add On G2211 Diagnoses SUSI positive R76.8 Bilateral hip pain M25.551; M25.552 Low back pain M54.50
--- OUTSIDE RECORDS SUMMARY | 2024-12-15 13:44 | XMS_ITS | Encounter Summary ---
Author Organization [facility] Address [address] [place] [address] Phone Care Team Providers Care Clothing And Textiles Teacher Name Role Phone Yary Espinal MD Primary Care Provider Unava ilable Encounter Details Date Type Department Care Team (Late st Contact Info) Description 11/14/2016 Conversion Encounter [facility] - [address] [address] Social History Tobacco Use Types Packs/Day Years [...] on filedocumented in this encounter Care Teams Clothing And Textiles Teacher Relationship Specialty Start Date End Date Yary Espinal MD PCP - General 11/08/16 documented as of this encounter
--- OUTSIDE RECORDS SUMMARY | 2024-12-15 13:44 | XMS_ITS | Patient Health Record ---
[facility] Address [address] [facility] [place] [address] Care Team Providers Care Programming Equipment Operator Name Role Phone Tamela Hopkins MD Primary Care Provider Unavaila jaquan Guo Khushboo Unavailable [phone] WoodallDragan Unavailable [phone] Allergies Allergen (clinical drug ingredient) Drug/Non Drug [...] Status Risk Notes Problem Acquired hallux valgus (03029048) Hallux valgus (acquired), left foot (M20.12) Active confirmed Problem Plantar wart (59632599) Plantar wart (B07.0) Active confirmed Problem Acquired hallux valgus (61866244) Hallux valgus (acquired), right foot (M20.11) Active confirmed Problem Pes planus (56972663) Pes planus of right foot (M21.41) Active confirmed Problem Pes planus (41241456) Pes planus of left foot (M21.42) Active confirmed Problem Tailors bunion (5137213) Tailors bunion (M20.10) Active confirmed Vital Signs Blood pressure diastolic 70 mm Hg 01/08/2024 Height 5ft1in in 01/28/2024 Blood pressure systolic 120 mm Hg 01/08/2024 Weight 215 lbs 01/28/2024 BMI 40.62 kg/m2 01/28/2024 Encounters Encounter Location Date Provider Diagnosis [address] [address] 01/08/2024 Dragan Woodall Other viral warts B07.8 ; Pain in left foot M79.672 and Pain in right foot M79.[address] [address] 01/28/2024 Khushboo Perica Right foot pain M79.671 and Plantar wart B07.[address] [address] 01/28/2024 Khushboo Perica [address] [address] 03/16/2024 Khushboo Guo Assessments Encounter Date Diagnosis (ICD Code) Assessment Notes Treatment Notes Treatment Clinical Notes Section Notes 01/08/2024 Other viral warts (ICD-10 - B07.8) 01/08/2024 Pain in left foot (ICD-10 - M79.672) 01/28/2024 Right foot pain (ICD-10 - M79.671) 01/28/2024 Plantar wart (ICD-10 - B07.0) 01/08/2024 Pain in right foot (ICD-10 - M79.671) Plan Of Treatment No Information Insurance Providers Payer Name Payer Address Payer Phone Subscriber Number Group Number Insured Name Patient Relationship to Insured Coverage Start Date Coverage End Date [facility] [address] [place] [address] [id number] Roxy Jean Baptiste Self - patient is the insured Medical (General) History Medical History History ICD Code Back,Hip,and Knee pain Anxiety asthma Broken bones covid-19 Depression Gall bladder problems Liver disease Warts Joint implants/screws Surgical History Surgery Date(Month/Year) bunionectomy benign tumor removal in breast 2019 gall 12/26/2023
--- OUTSIDE RECORDS SUMMARY | 2024-12-15 13:44 | XMS_ITS | Clinical Summary ---
Author Organization [facility] Address [address] [place] [address] Phone Care Team Providers Care Hydrochloric Manufacturing Supervisor Name Role Phone Peace Blanco Primary Care Provide r Medications albuterol 90 mcg/actuation inhaler Albuterol Sulfate HFA Active Active Problems No known active problems Social History Tobacco Use Types Packs/Day Years [...] 01/09/2022, 01/15/2021, Additional history exists COVID-19 VACCINE (2024- season) 2024 03/28/2023, 01/09/2022, 07/31/2021, Additional history [...] topic Medical Devices Not on file Insurance [facility] Care Teams Hydrochloric Manufacturing Supervisor Relationship Specialty Start Date End Date Peace Blanco PA [address] [place] [address] [place] [address] PCP - General Physician Data Integration Analyst 09/05/24 Additional Source Comments The information contained in this document represents components of the legal health record. It is not the complete legal health record.[facility]
--- OUTSIDE RECORDS SUMMARY | 2024-12-15 13:44 | XMS_ITS | Clinical Summary ---
Author Organization [facility] Address [address] [place] [address] Phone Care Team Providers Care Accounting Specialist Name Role Phone Yary Espinal MD Primary Care Provider Unava ilable Active Problems Problem Noted Date Diagnosed Date Bunion Overview (04/15/2017): Had R bunion repair surgery 05/2015 at [facility] with good result. May need to [...] *Heart Disease, No family history of *Sudden /MD under 55, Family history of Cancer - [...] complete this topic Procedures * Due to [place] [employer] law, this organization might not be sharing sensitive test results. Procedure Name Priority Date/Time Associated Diagnosis Comments CHLAMYDIA AND GONORRHEA, AMPLIFIED Routine 10/05/2015 2:02 PM EDT from Last 3 Months or Most Recently Relevant to Health Maintenance Results * Due to [place] [employer] law, this organization might not be sharing sensitive test results. * Chlamydia and Gonorrhoea, Amplified (10/05/2015 2:02 PM EDT) [facility] URINE GC AMP PROBE NEGATIVE [facility] Comment: No Neisseria Gonorrhoeae RNA detected in this patient's sample (REFERENCE RANGE/NORMAL VALUE: NOT DETECTED) NOTE: This test uses vp patient-mediated amplification method to detect rRNA from C.Trachomatis [...] risk of sexual abuse. Consult the [facility] if needed. Contact phone number . Therapeutic failure or success cannot be determined with the Aptima Combo2 assay since nucleic acid may persist following appropriate antimicrobial therapy. The Centers for Disease Control and Prevention (CDC) recommends confirmatory retesting using culture or a different nucleic acid amplification test when positive results occur, if indicated. Testing performed or reported by [facility], a Service of [facility], [address], [place] [address] CLIA [id number] Luca Luo MD, PhD, [place] URINE CHLAMYDIA AMP PROBE NEGATIVE [facility] Comment: No Chlamydia Trachomatis RNA detected in this patient's sample (REFERENCE RANGE/NORMAL VALUE: NOT DETECTED) 10/05/2015 2:02 PM EDT Narrative [facility] - 10/05/2015 2:02 PM EDT URINE CHLAMYDIA GC AMP PROBE us Yary Espinal MD LAB MICROBIOLOGY - GENERAL O RDERABLES Final Result [facility] [address] [place] [address], from Last 3 Months or Most Recently Relevant to Health Maintenance Care Teams Accounting Specialist Relationship Specialty Start Date End Date Yary Espinal MD PCP - General 11/08/16
== END 2024-12-15 11:53 | disposition home or self-care (01) ==
LOC: HO.RHES 10:48
PROVIDERS: Visit Provider Internal Medicine Rheumatology
DX: R76.8 Other specified abnormal immunological findings in serum (principal); M25.551 Pain in right hip; M25.552 Pain in left hip; M54.50 Low back pain, unspecified
CPT/HCPCS: 99204

== ENCOUNTER 2025-02-14 14:12 | Outpatient (AMB) | payer BC, SELFPAY ==
[2025-02-14 14:23] VITALS: BP 98/62; PULSE 112; TEMP 36.8; O2SAT 99; BMI 41.8
--- NOTE | 2025-02-14 14:23 | AM.OFFWIN_ITS ---
Intake Vital Signs 02/14/25 14:23 Height 5 ft 1 in Weight 221 lb BMI 41.8 BP 98/62 Blood Pressure Location Rt brachial Position Sitting Pulse 112 H Pulse Source Pulse Oximeter Temp 98.3 F Temp Source Oral Pulse Oximetry (%) 99 Oxygen Delivery Method Room Air Intake Visit Reasons: EP-chest congestion, running nose, cough Intake Note: Ptient presents with chest congestion, sore throat, cough, runny nose, SOB on exertion, wheezing when laying down x1 week. Patient Tobacco Use Status: Never used Tobacco Allergies bee pollen (BEE STINGS) Allergy (Severe, Verified 02/14/25 14:26) SWELLING Medication List - Last Reconciled 02/14/25 by Bhargavi Perla NP albuterol sulfate 90 mcg/actuation 2 puffs inhalation Q6H PRN amitriptyline 10 mg PO BEDTIME azithromycin 500 mg PO DAILY 3 days benzonatate 100 mg PO BID bupropion HCl XL (Wellbutrin XL) 150 mg PO QAM cholecalciferol (vitamin D3) 25 mcg PO DAILY levonorgestrel (Kyleena) 1 device intrauterine ONCE sumatriptan succinate take 1 tab at onset of headache; if no relief may repeat 1 tab after at least 2 hrs; max = 4 tabs/24 hr PO Do you need a note to return to daycare/school/sports/work: Yes HPI HPI Comments History of Present Illness Details 29 y/o female presents to the walk[facility]in [facility] with URI symptoms for >1 week. Reports chest congestion, sore throat, cough, rhinorrhea, shortness of breath with exertion, and wheezing when lying down. 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 Denies fever, chills, nausea, or vomiting. No known sick contacts, but she works with children. Reports symptoms have remained persistent, interfering with sleep and daily activities. [facility] Medical History (Updated 02/14/25 @ 14:58 by Bhargavi Perla NP) Asthma with acute exacerbation Bilateral hip pain Hidradenitis suppurativa Sleep apnea ADHD Cholelithiasis Abdominal pain Anxiety Fatigue Tremor Asthma Surgical History Status post laparoscopic cholecystectomy History of cholecystectomy H/O foot surgery Family History Father No problems noted. Mother No problems noted. Brother No problems noted. Sister No problems noted. Other Substance use disorder Social History Housing: House Are you a primary floor care technician to a significant other at home: No Do you presently have visiting nurse or other home services: No Alcohol intake: current Alcohol intake frequency: a few times a week Patient Tobacco Use Status: Never used Tobacco e-Cigarette/Vaping Use: Never Used Substance Use Type: Marijuana service: No Current occupational status: employed Sexual orientation: Straight/Heterosexual Gender identity: Female Cognitive needs: No Hearing needs: No Vision needs: Yes (Glasses) Female Reproductive History Menstrual Age of Menarche: 14 Review of Systems Const All systems reviewed & are unremarkable except as noted in HPI and below Physical Exam Vital Signs: Last Vital Signs Temp 98.3 F 02/14/25 14:23 Pulse 112 H 02/14/25 14:23 BP 98/62 02/14/25 14:23 Pulse Ox 99 02/14/25 14:23 Oxygen Delivery Method Room Air 02/14/25 14:23 BMI result Body Mass Index 41.8 Const General: no acute distress Nutritional Appearance: obese Orientation/consciousness: patient oriented x3 HEENT Head: Yes normocephalic Ears: external ears normal and TM abnormal bulging bilateral and with fluid behind the TM bilateral General nose exam: Normal external nose present Mouth: moist mucous membranes Throat: Yes uvula midline Resp Effort & Inspection: normal respiratory effort and Actively coughing Auscultation: clear to auscultation bilaterally, no crackles, no rales, no rhonchi and no wheezes Cardio Heart sounds: S1 normal heart sound present and S2 normal heart sound present Neuro General: patient oriented x3, gait normal and moves all extremities Psych Speech and movement: Normal speech and movement present Assessment & Plan Assessment & Plan (1) Asthma with acute exacerbation: Code(s): J45.901 - Unspecified asthma with (acute) exacerbation Qualifiers: Asthma persistence: persistent Asthma severity: mild Qualified Code(s): J45.31 - Mild persistent asthma with (acute) exacerbation Plan: Acute URI / Viral Bronchitis ? Symptoms >1 week with cough, congestion, sore throat, wheezing; likely viral given absence of fever. Asthma with acute exacerbation (mild to moderate). Consider initiating inhaled corticosteroid (ICS) maintenance (e.g., Fluticasone) if exacerbations are recurrent or symptoms persist ? Patient to discuss with PCP. Rest, fluids, warm tea, humidifier use. Ordered Z-pack for 3 days. Avoid known asthma triggers. Educate on proper inhaler technique. Return/ER precautions: Worsening SOB, chest pain, inability to speak full sentences, fever, or no improvement in 48?72 hours. Medications: New azithromycin 500 mg PO DAILY 3 tabs 0RF 3 days J45.31 - Mild persistent asthma with (acute) exacerbation benzonatate 100 mg PO BID 60 caps 0RF J45.31 - Mild persistent asthma with (acute) exacerbation Coding Level of Care Code Est Pt Level 4 (49686) Diagnoses Mild persistent asthma with acute exacerbation J45.31 Asthma persistence: persistent Asthma severity: mild Time Spent (min) 20
--- OUTSIDE RECORDS SUMMARY | 2025-02-15 04:06 | XMS_ITS | Data Portability ---
Author Organization [facility] [address] Address [address] [place] [address] Assessment No assessment recorded. Plan of Treatment [...] mg-0.5 mg/mL ear drops,suspe nsion 2022 023 [facility][id number], [address] [facility], [place], [address], 15:36:08 Patient TargetsNo targets recorded. Patient Instructions Encounter Date Encounter Id Patient Instructions Last Modified By Organization Details Last Modified Time 10/10/2022 [id number] earache: care instructions [email or web address] Not available 10/10/2022 15:36:06 ear infection (otitis media): care instructions [email or web address] Not available 10/10/2022 15:36:06 Based on your [...] if you have any questions or concerns. [email or web address] Not available 10/10/2022 15:37:23 Reason for Referral [...] Address Organization Details Last Updated DateTime 3 61357.3 2 g 41.6 kg/m2 154.94 cm 5 95 % 95 % 67 /min 18 /min 97.9 [degF] 116/78 mm[Hg] Ligia Pompa PA - [facility] 14:22:38 Social History Question Answer Notes LastModified by Fyreball Details LastModified Time Tobacco Smoking Status Never [...] Functional Status Question Answer Note LastModified by Fyreball Details LastModified Time Do you use any [...] Influenza, MDCK, quadrivalent, PF 2 completed Ligia Shelton null, PA - [facility] 10/10/2022 14:20:33 COVID-19, mRNA, LNP-S, PF, 100 mcg/0.5mL dose or 50 mcg/0.25mL dose 1 completed Ligia Shelton null, PA - [facility] 10/10/2022 14:20:33 COVID-19, mRNA, LNP-S, PF, 100 mcg/0.5mL dose or 50 mcg/0.25mL dose 1 completed Ligia Shelton null, PA - [facility] 10/10/2022 14:20:33 [...] A, ped/adol, 2 dose 6 completed Ligia Shelton null, PA - [facility] 10/10/2022 14:20:33 meningococcal MCV4P 6 completed Ligia Shelton null, PA - [facility] 10/10/2022 14:20:33 Influenza, split virus, quadrivalent, PF 0 completed Ligia Aletha null, PA - [facility] 10/10/2022 14:20:33 Influenza, split virus, quadrivalent, PF 5 completed Ligia Aletha null, PA - [facility] 10/10/2022 14:20:33 Influenza, split virus, quadrivalent, PF 1 completed JOHN Jones [facility] 10/10/2022 14:20:33 Past Encounters Encounter ID Performer Location Encounter Start Date Encounter Closed Date Diagnosis/Indication Diagnosis SNOMED-CT Code Diagnosis ICD10 Code Diagnosis IMO Codes Diagnosis Note [id number] [address] [address] [place] [address] 03/31/2021 17:14:13 03/31/2021 19:18:11 [id number] JOHN YI [address] [address] 10/10/2022 14:13:14 10/10/2022 15:38:27 Impacted cerumen in right ear [id number] 819960 H61.21 Health Concerns Section Related Observation LastModified by Organization Detai ls LastModified Time None Recorded Concern Status LastModified by Organization Details LastModified Time None Recorded Advance Directives Directive None Recorded Payers Insurance Date Sequence Insurance Name Policy Number Policy Chahal Covered Member ID Chahal Member ID Guarantor Name 10/18/2022 1 CASANDRASHAE [id number] Roxy Jean Baptiste [id number] Roxy Jean Baptiste Notes Date Note Type Note Provider Name and Address Organization Details Recorded Time 10/10/2022 text/html Ear Pain Brief HPIReported by [id number] y.o female pt presents with clogged right ear x 1 day. Pt has been swimming. She denies pain, or discharge. JOHN YI [address] [place], [address], [place] - [facility] 10/10/2022 15:38:57 OBGyn Episode No OBEpisode recorded.
== END 2025-02-14 15:04 | disposition home or self-care (01) ==
PROVIDERS: Visit Provider Nurse Practitioner Family
DX: J45.31 Mild persistent asthma with (acute) exacerbation (principal)

== ENCOUNTER 2025-02-22 15:35 | Outpatient (REF) | payer BC, SELFPAY ==
--- OUTSIDE RECORDS SUMMARY | 2025-02-22 19:28 | XMS_ITS | Data Portability ---
Author Organization [facility] [address] Address [address] [place] [address] Assessment No assessment recorded. Plan of Treatment [...] mg-0.5 mg/mL ear drops,suspe nsion [address] [id number], [address] [facility], [place], [address], 15:36:08 Patient TargetsNo targets recorded. Patient Instructions Encounter Date Encounter Id Patient Instructions Last Modified By Organization Details Last Modified Time 10/10/2022 [id number] earache: care instructions [email or web address] Not available 10/10/2022 15:36:06 ear infection (otitis media): care instructions [email or web address] Not available 10/10/2022 15:36:06 Based on your [...] if you have any questions or concerns. Not available 10/10/2022 15:37:23 Reason for Referral [...] numeric rating [Score] - Reported Oxygen saturation Heart rate Respiratory rate Body temperature Systolic And Diastolic Provider Name and Address Organization Details Last Updated DateTime 3 51247.3 2 g 41.6 kg/m2 154.94 cm 5 95 % 67 /min 18 /min 97.9 [degF] 116/78 mm[Hg] Ligia Pompa PA - [facility] 3 14:22:38 Social History Question Answer Notes LastModified by [employer] Details LastModified Time Tobacco Smoking Status Never [...] Functional Status Question Answer Note LastModified by [employer] Details LastModified Time Do you use any [...] or 50 mcg/0.25mL dose 1 completed Ligia Zullinger null, PA - [facility] 10/10/2022 14:20:33 COVID-19, mRNA, LNP-S, PF, 100 mcg/0.5mL dose or 50 mcg/0.25mL dose 1 completed Ligia Zullinger null, PA - [facility] 10/10/2022 14:20:33 [...] or 25mcg/0.25 mL dose 2 completed Ligia Zullinger null, PA - [facility] 10/10/2022 14:20:33 Hep A, ped/adol, 2 dose 6 completed Ligia Aletha null, PA - [facility] 10/10/2022 14:20:33 meningococcal MCV4P 6 completed Ligia Aletha null, PA - [facility] 10/10/2022 14:20:33 Influenza, split virus, quadrivalent, PF 0 completed Ligia Zullinger null, PA - [facility] 10/10/2022 14:20:33 Influenza, split virus, quadrivalent, PF 5 completed Ligia Aletha null, PA - [facility] 10/10/2022 14:20:33 Influenza, split virus, quadrivalent, PF completed JOHN Jones [facility] 10/10/2022 14:20:33 Past Encounters Encounter ID Performer Location Encounter Start Date Encounter Closed Date Diagnosis/Indication Diagnosis SNOMED-CT Code Diagnosis ICD10 Code Diagnosis IMO Codes Diagnosis Note [id number] [address] [place] [address] 03/31/2021 17:14:13 03/31/2021 19:18:11 [id number] [facility] [address] [place] [address] [place] [address] 10/10/2022 14:13:14 10/10/2022 15:38:27 Impacted cerumen in right ear [id number] 817619 H61.21 Health Concerns Section Related Observation LastModified by Organization Detai ls LastModified Time None Recorded Concern Status LastModified by Organization Details LastModified Time None Recorded Advance Directives Directive None Recorded Payers Insurance Date Sequence Insurance Name Policy Number Policy Chahal Covered Member ID Chahal Member ID Guarantor Name 10/18/2022 1 [employer] [id number] Roxy Jean Baptiste [id number] Roxy Jean Baptiste Notes Date Note Type Note Provider Name and Address Organization Details Recorded Time 10/10/2022 text/html Ear Pain Brief HPIReported by [email or web address] y.o female pt presents with clogged right ear x 1 day. Pt has been swimming. She denies pain, or discharge. JOHN [place] [facility] [place], [address], [place] - [facility] 10/10/2022 15:38:57 OBGyn Episode No OBEpisode recorded.
[2025-02-22 22:47] LABS: Bacterial Vaginosis PCR NEGATIVE (Negative); Candida Group PCR NOT DETECTED (Not Detect); Candida glab krusei PCR NOT DETECTED (Not Detect); Trichomonas vaginalis PCR NOT DETECTED (Not Detect)
[2025-02-22 23:19] LABS: CT PCR NOT DETECTED (Not Detect.); NG PCR NOT DETECTED (Not Detect.)
== END 2025-02-22 15:36 | disposition home or self-care (01) ==
LOC: HO.LNP 15:35
PROVIDERS: Visit Provider Obstetrics & Gynecology
DX: Z30.432 Encounter for removal of intrauterine contraceptive device (principal); N93.0 Postcoital and contact bleeding; Z20.2 Contact with and (suspected) exposure to infections with a predominantly sexual mode of transmission; Z32.02 Encounter for pregnancy test, result negative
CPT/HCPCS: 58301; 81025; 81515; 87491; 87591

== ENCOUNTER 2025-02-22 15:35 | Outpatient (AMB) | payer BC, SELFPAY ==
--- OUTSIDE RECORDS SUMMARY | 2024-03-16 05:15 | XMS_ITS ---
Author Organization [facility] Address [address] [place] [address] Care Team Providers Care Cognos Architect Name Role Phone Tamela Hopkins MD Primary Care Provider Khushboo Cancino [phone] Medications Medication SIG (Take, Route, Fr equency, Duration) Notes Start Date End Date Status Kyleena 19.5 MG as directed Intrauterine Active Albuterol Sulfate HFA Active Encounters Encounter Location Date Provider Diagnosis [facility] [address] [place] [address] 03/16/2024 Khushboo Guo Plan Of Treatment No Information Progress Notes * Roxy YOUNGER LDOB:1995 (29 yo F)Acc No.[id number]:03/16/2024 Progress Notes Patient: Kristen CALIeyad Abebe Provider: Mis Guo DPM :1995 A ge:28 Y S ex:Female Date:03/16/2024 [facility] [place] Pcp:Tamela Hopkins MD Subjective: * Chief Complaints: * * HPI: W art: Pt States Last PCP Visit: D ate: 0 09/14/2023 * Medical History: * Medications: T aking Kyleena 19.5 MG Intrauterine Device as directed Intrauterine , Taking Albuterol Sulfate HFA Objective: * Vitals: Assessment: Plan: * Treatment: * Images: * The named appointment provid er may or may not be the originator of this progress note, and it is not deemed complete until electronically signed by the appointment provider. Sign off status: Pending * Provider: Mis Guo DPM Date: 05/17/2023 Generated for Joseph Harper/Ghazal on: 04/24/2024 07:05 PM EST History and Physical Notes * HPI (History of Present Illness) Category Sub-Category Detail Notes Category Not es Wart Pt States Last PCP Visit: Date:: 09/14/2023
[2025-02-22 15:48] VITALS: BP 124/76; BMI 41.8
--- NOTE | 2025-02-22 15:48 | A.OFFVIS_ITS ---
Vital Signs 02/22/25 15:48 Height 5 ft 1 in Weight 221 lb BMI 41.8 BP 124/76 Intake Visit Reasons: iud removal Dental Laboratory Worker Required: No Information Interpreted: non-clinical & clinical Adjusto Writer Operator: Adjusto Writer Operator Present (Gena ESCOBAR) Accompanied by: Self / Same As Patient Allergies bee pollen (BEE STINGS) Allergy (Severe, Verified 02/14/25 14:26) SWELLING Is last menstrual period known: Yes HPI Comments Details: Presenting for IUD removed, the patient would like to switch to control pills in addition, the patient is complaining of post coital bleeding [facility] Medical History Asthma with acute exacerbation Bilateral hip pain Hidradenitis suppurativa Sleep apnea ADHD Cholelithiasis Abdominal pain Anxiety Fatigue Tremor Asthma Surgical History Status post laparoscopic cholecystectomy History of cholecystectomy H/O foot surgery Family History Father No problems noted. Mother No problems noted. Brother No problems noted. Sister No problems noted. Other Substance use disorder Social History Housing: House Are you a primary nurse behavioral health care to a significant other at home: No Do you presently have visiting nurse or other home services: No Alcohol intake: current Alcohol intake frequency: a few times a week Patient Tobacco Use Status: Never used Tobacco e-Cigarette/Vaping Use: Never Used Substance Use Type: Marijuana service: No Current occupational status: employed Sexual orientation: Straight/Heterosexual Gender identity: Female Cognitive needs: No Hearing needs: No Vision needs: Yes (Glasses) Female Reproductive History Menstrual Age of Menarche: 14 control method: progestin IUCD Review of Systems Const All systems reviewed & are unremarkable except as noted in HPI and below Physical Exam Vital Signs: Last Vital Signs BP 124/76 02/22/25 15:48 BMI result Body Mass Index 41.8 General: Yes no CVA tenderness External Female Exam: normal external appearance and normal appearance of the urethra Speculum Exam - Vagina: normal appearance of the vagina, normal palpation, no lesions and no masses Speculum Exam - Cervix: normal appearance of the cervix, normal palpation, no lesions, no masses, nontender and Other cervical findings present (IUD string in place) Bimanual exam- vagina & uterus: normal bimanual exam, normal palpation, uterine size normal, normal palpation, uterine shape normal, No Cervical tenderness present and non-tender Bimanual Exam- Adnexa, other: normal adnexae Back/Spine/Pelvis Back: no CVA tenderness Office Procedures IUD Insert/Removal Details Details: Counseling/Consent: After discussing with the patient the risks of the procedure including bleeding, infection, scar tissue formation, , possible injury to blood vessels or nerves, chronic arm pain, blood transfusion, and irregular unpredictable bleeding Alternative options were discussed with the patient including but not limited: Do nothing. The patient signed the consent and agreed with the plan; all questions answered. Urine test was done in the office and was negative Preop dx: Requesting IUD removal Op: IUD removal Post op dx: same EBL= 10 cc Procedure: The patient was put in the dorsal lithotomy position a speculum was inserted in the vagina the IUD thread identified. Using a Nicole clamp the thread was grasped and the IUD pulled out with no complications. The patient tolerated the procedure well and was advised to use a different method for contraception. Discharge instructions: Instructions were given to the pt to call if temp>100.4, abdominal pain heavy vaginal bleeding, n/v occur. The patient verbalized understanding and all questions answered. This note was generated with a voice recognition program. Some errors may have been overlooked during the review of this note. Sometimes these errors may affect the content or meaning of a given sentence. [id number]-[id number] Removal Procedure code (CPT) selection complete Results AMB Test Urine AMB Test Urine Negative Last Edit by Gena Galaviz CMA on 15:59 Results Reviewed Results Reviewed: Laboratory Last Values Tst Clinic Negative 02/22/25 15:58 Assessment & Plan Assessment & Plan (1) Encounter for IUD removal: Code(s): Z30.432 - Encounter for removal of intrauterine contraceptive device Category: Medical Plan: IUD removed, see procedure note (2) Family planning: Code(s): Z30.09 - Encounter for other general counseling and advice on contraception Category: Social Hx Plan: Discussed with the patient the different options of control including control pills/Nuvaring, Depo Medroxy Progesterone Acetate, IUD ( levonorgestrel, Copper), sterilization. All the pros, cons, risks and benefits of each were discussed with the patient. The patient decided to go ahead with [facility] so a more detailed discussion re: control pills including mechanism of action, benefits (regular menses, less dysmenorrhea, less risk of ovarian cancer, ...), risks ( DVT, PE, Strokes, DE, increased breast ca, others). Instructions were given to use a back- up method for contraception x 1st 2 weeks, and to schedule a 3 months appointment for blood pressure check (3) PCB (post coital bleeding): Code(s): N93.0 - Postcoital and contact bleeding Category: Medical Plan: UPT done in the office was negative, GC/CT with BV panel collected, IUD removed. Instructions given the patient to call if symptoms recur we will proceed with pelvic ultrasound Orders: Orders AMB HCG Urine Test Today Z32.02 - Encounter for test, result negative CT NG by PCR Vag/Cerv Today N93.0 - Postcoital and contact bleeding Bacterial Vaginosis Panel Today N93.0 - Postcoital and contact bleeding Medications: New L norgest/e.estradiol-e.estrad 0.15 mg-30 mcg (84)/10 mcg (7) 1 tab PO DAILY 84 ea 0RF 84 days Coding Level of Care Code Est Pt Level 3 (35939) Procedure Only Diagnoses Encounter for IUD removal Z30.432 Family planning Z30.09 PCB (post coital bleeding) N93.0 CPT Codes Details - CPT: 25576-XBW Removal ([id number])
--- OUTSIDE RECORDS SUMMARY | 2025-02-22 19:05 | XMS_ITS | Clinical Summary ---
Author Organization [facility] Address [address] [place] [address] Phone Care Team Providers Care Quitline Counselor Name Role Phone Yary Espinal MD Primary Care Provider Unava ilable Active Problems Problem Noted Date Diagnosed Date Bunion Overview (04/15/2017): Had R bunion repair surgery 05/2015 at [facility] with good result. May need to [...] complete this topic Procedures * Due to [place] FluGen law, this organization might not be sharing sensitive test results. Procedure Name Priority Date/Time Associated Diagnosis Comments CHLAMYDIA AND GONORRHEA, AMPLIFIED Routine 10/05/2015 2:02 PM EDT from Last 3 Months or Most Recently Relevant to Health Maintenance Results * Due to [place] FluGen law, this organization might not be sharing sensitive test results. * Chlamydia and Gonorrhoea, Amplified (10/05/2015 2:02 PM EDT) [facility] URINE GC AMP PROBE NEGATIVE [facility] Comment: No Neisseria Gonorrhoeae RNA detected in this patient's sample (REFERENCE RANGE/NORMAL VALUE: NOT DETECTED) NOTE: This test uses paleology teacher-mediated amplification method to detect rRNA from C.Trachomatis [...] without risk of sexual abuse. Consult the [facility] if needed. Contact phone number . Therapeutic failure or success cannot be determined with the Aptima Combo2 assay since nucleic acid may persist following appropriate antimicrobial therapy. The Centers for Disease Control and Prevention (CDC) recommends confirmatory retesting using culture or a different nucleic acid amplification test when positive results occur, if indicated. Testing performed or reported by [facility], a Service of [facility], [address], [place] [address] CLIA [id number] Luca Luo MD, PhD, Clinical Associate URINE CHLAMYDIA AMP PROBE NEGATIVE [facility] Result [facility] [address] [place] [address], from Last 3 Months or Most Recently Relevant to Health Maintenance Care Teams Quitline Counselor Relationship Specialty Start Date End Date Yary Espinal MD PCP - General 11/08/16
--- OUTSIDE RECORDS SUMMARY | 2025-02-22 19:06 | XMS_ITS | Clinical Summary ---
Author Organization [facility] Address [address] [place] [address] Phone Care Team Providers Care Cutter Inspector Name Role Phone Peace Blanco Primary Care [...] topic Medical Devices Not on file Insurance [facility] Member Subscriber Plan / Payer (Ef fective 2024-) Name:Jean BaptisteKristen boykinissa Relation to Subscriber:Self Name:Roxy Jean Baptiste Payer ID:[id number] (NAIC) Type:HMO Address: [address] [place] [id number] Care Teams Cutter Inspector Relationship Specialty Start Date End Date Peace Blanco PA [address] [place] [address] [place] [address] PCP - General Physician Rehab Physician 09/05/24 Additional Source Comments The information contained in this document represents components of the legal health record. It is not the complete legal health record.[facility]
--- OUTSIDE RECORDS SUMMARY | 2025-02-22 19:06 | XMS_ITS | Encounter Summary ---
Author Organization [facility] Address [address] [place] [address] Phone Care Team Providers Care Fire Control Technician Name Role Phone Yary Espinal MD Primary Care Provider Unava ilable Encounter Details Date Type Department Care Team (Late st Contact Info) Description 11/14/2016 Conversion Encounter [facility] - [address] [address] Social History Tobacco Use Types Packs/Day Years [...] on filedocumented in this encounter Care Teams Fire Control Technician Relationship Specialty Start Date End Date Yary Espinal MD PCP - General 11/08/16 documented as of this encounter
--- OUTSIDE RECORDS SUMMARY | 2025-02-22 19:06 | XMS_ITS | Patient Health Record ---
Author Organization [facility] Address [address] [place] [address] Care Team Providers Care Environmental Health And Safety Manager Name Role Phone Tamela Hopkins MD Primary Care Provider Juanitoa Khushboo Savage Unavailable [phone] Allergies Allergen (clinical drug ingredient) Drug/Non Drug [...] Status Risk Notes Problem Acquired hallux valgus (34002475) Hallux valgus (acquired), left foot (M20.12) Active confirmed Problem Plantar wart (78297728) Plantar wart (B07.0) Active confirmed Problem Acquired hallux valgus (48988366) Hallux valgus (acquired), right foot (M20.11) Active confirmed Problem Pes planus (22662428) Pes planus of right foot (M21.41) Active confirmed Problem Pes planus (68873401) Pes planus of left foot (M21.42) Active confirmed Problem Tailors bunion (9027975) Tailors bunion (M20.10) Active confirmed Encounters Encounter Location Date Provider Diagnosis [facility] [address] [place] [address] 03/16/2024 Khushboo Guo Plan Of Treatment No Information Insurance Providers Payer Name Payer Address Payer Phone Subscriber Number Group Number Insured Name Patient Relationship to Insured Coverage Start Date Coverage End Date [facility] [address] [facility] [place] [id number] [phone] [id number] Roxy Jean Baptiste Self - patient is the insured Medical (General) History Medical History History ICD Code Back,Hip,and Knee pain Anxiety asthma Broken bones covid-19 Depression Gall bladder problems Liver disease Warts Joint implants/screws Surgical History Surgery Date(Month/Year) bunionectomy benign tumor removal in breast 2019 gall 12/26/2023
== END 2025-02-22 16:21 | disposition home or self-care (01) ==
LOC: HO.HWS 15:36
PROVIDERS: Visit Provider Obstetrics & Gynecology
DX: Z30.432 Encounter for removal of intrauterine contraceptive device (principal); Z30.09 Encounter for other general counseling and advice on contraception; N93.0 Postcoital and contact bleeding; Z32.02 Encounter for pregnancy test, result negative
CPT/HCPCS: 58301

== ENCOUNTER 2025-03-15 15:24 | Outpatient (AMB) | payer BC, SELFPAY ==
--- OUTSIDE RECORDS SUMMARY | 2024-03-16 05:15 | XMS_ITS ---
Author Organization [facility] Address [address] [place] [address] Care Team Providers Care Sleeping Room Cleaner Name Role Phone Tamela Hopkins MD Primary Care Provider Khushboo Cancino [phone] Medications Medication SIG (Take, Route, Fr equency, Duration) Notes Start Date End Date Status Kyleena 19.5 MG as directed Intrauterine Active Albuterol Sulfate HFA Active Encounters Encounter Location Date Provider Diagnosis [facility] [address] [place] [address] 03/16/2024 Khushboo Guo Plan Of Treatment No Information Progress Notes * Roxy YOUNGER LDOB:1995 (29 yo F)Acc No.[id number]:03/16/2024 Progress Notes Patient: Kristen CALIeyad Abebe Provider: Mis Guo DPM :1995 A ge:28 Y S ex:Female Date:03/16/2024 [facility] Pcp:Tamela Hopkins MD Subjective: * Chief Complaints: [...] Pending * Provider: Mis Guo DPM Date: 1 05/17/2023 Generated for Joseph Harper/Ghazal on: 05/16/2024 07:37 PM EST History and Physical Notes * HPI (History of Present Illness) Category Sub-Category Detail Notes Category Not es Wart Pt States Last PCP Visit: Date:: 09/14/2023
[2025-03-15 15:27] VITALS: BP 120/74; PULSE 83; RESP 16; O2SAT 96; BMI 40.8
--- NOTE | 2025-03-15 15:27 | A.OFFPC_ITS ---
Vital Signs 03/15/25 15:27 Height 5 ft 1 in Weight 216 lb 2 oz BMI 40.8 BP 120/74 Blood Pressure Location Lt brachial Position Sitting Respiration 16 Pulse 83 Pulse Source Pulse Oximeter Pulse Oximetry (%) 96 Oxygen Delivery Method Room Air Intake Visit Reasons: annual exam Auto Body Repairer Fiberglass Required: No Accompanied by: Self / Same As Patient Allergies bee pollen (BEE STINGS) Allergy (Severe, Verified 03/15/25 15:43) SWELLING Medication List - Last Reconciled 03/15/25 by Peace Blanco PA-C albuterol sulfate 90 mcg/actuation 2 puffs inhalation Q6H PRN amitriptyline 10 mg PO BEDTIME bupropion HCl XL (Wellbutrin XL) 150 mg PO QAM cholecalciferol (vitamin D3) 25 mcg PO DAILY L norgest/e.estradiol-e.estrad 0.15 mg-30 mcg (84)/10 mcg (7) 1 tab PO DAILY 84 days Tobacco use date assessed: 03/15/25 Dental Screening Dental Screen Date: 03/15/25 Did you have a dental visit in the last 12 months?: Yes Did you have a dental problem in the last 6 months where you did not have access to dental care?: No Was dental information given to patient?: Patient has dentist HPI annual exam HPI Details 29-year-old female with past medical his tory of asthma, anxiety, tremor, fatty liver disease, hyperlipidemia last seen 11/2024 coming in for annual exam. In review of the notes, patient was seen by rheum 11/2024 recommended weight loss and PT and XR were ordered to evaluate back pain. Regarding gynecological history, her IUD has been removed, but she continues to experience abnormal bleeding and was started on oral control. And starting on oral contraceptive she has noticed her mood has been low and notes very low energy and has crying spells without reason. She also mentions having new onset of loss of appetite which began as well with the start of the oral contraceptive. She also experiences nausea when going for prolonged periods of time without food. pap smear: UTD grout worker vaccines: TDAP [facility] Medical History Asthma with acute exacerbation Bilateral hip pain Hidradenitis suppurativa Sleep apnea ADHD Cholelithiasis Abdominal pain Anxiety Fatigue Tremor Asthma Surgical History Status post laparoscopic cholecystectomy History of cholecystectomy H/O foot surgery Family History Father No problems noted. Mother No problems noted. Brother No problems noted. Sister No problems noted. Other Substance use disorder Social History Housing: House Are you a primary family day care provider to a significant other at home: No Do you presently have visiting nurse or other home services: No Alcohol intake: current Alcohol intake frequency: a few times a week Patient Tobacco Use Status: Never used Tobacco e-Cigarette/Vaping Use: Never Used Substance Use Type: Marijuana service: No Current occupational status: employed Sexual orientation: Straight/Heterosexual Gender identity: Female Cognitive needs: No Hearing needs: No Vision needs: Yes (Glasses) Female Reproductive History Menstrual Age of Menarche: 14 Questionnaire PHQ-9 Over the last 2 weeks, how often have you been bothered by any of the following problems? 1. Little interest or pleasure in doing things: more than half the days 2. Feeling down, depressed, or hopeless: more than half the days 3. Trouble falling or staying asleep, or sleeping too much: not at all 4. Feeling tired or having little energy: more than half the days 5. Poor appetite or overeating: more than half the days 6. Feeling bad about yourself - or that you are a failure or have let yourself or your family down: nearly every day 7. Trouble concentrating on things, such as reading the newspaper or watching television: more than half the days 8. Moving or speaking so slowly that other people could have noticed. Or the opposite - being so fidgety or restless that you have been moving around a lot more than usual: not at all 9. Thoughts that you would be better off or of hurting yourself in some way: not at all Total score: 13 Depression Screening Interpretation: Positive Depression Screening Follow-up: Existing condition and In treatment Depression Screening Done: Yes 13506 - PHQ-9 Billing: Yes Source: Developed by Drs. Venkatesh Mason, Koko Spears and colleagues, with an educational elliot from [employer]. Thrive Questionnaire Date Thrive assessed: 03/15/25 I am a: Patient What is your living situation today?: I have a steady place to live Within the past 12 months, did the food you bought not last and you didn't have the money to get more?: Never true Within the past 12 months, did you worry whether your food would run out before you got money to buy more?: Never true Do you have trouble paying for medicines?: No Do you have trouble getting transportation to medical appointments?: No Do you have trouble paying your heating and electricity bill?: No Do you have trouble taking care of your child, family member or friend?: No Do you have trouble with day-to-day activities such as bathing, preparing meals, shopping, managing finances, etc.?: No Are you currently unemployed and looking for a job?: No Are you interested in more education?: No Please select the resources that you would like help with: None Currently or been in a relationship where the following occur: No concerns reported THRIVE Score: 0 AUDIT C Alcohol Use Questionnaire (AUDIT-C) 1. How often do you have a drink containing alcohol?: Never Total Score: 0 DIMAS-7 AMB Questionnaire DIMAS-7 Date DIMAS - 7 assessed: 03/15/25 Feeling nervous, anxious, or on edge: 3 = Nearly every day Not being able to stop or control worryin = Nearly every day Worrying too much about different things: 3 = Nearly every day Trouble relaxin = Nearly every day Being so restless that it is hard to sit still: 3 = Nearly every day Becoming easily annoyed or irritable: 2 = More than half the days Feeling afraid as if something awful might happen: 1 = Several days Total DIMAS-7 score (0-4 normal; 5-9 mild; 10-14 moderate; 15-21 severe): 18 Source: Developed by Drs. Venkatesh Mason, Koko Spears and colleagues, with an educational elliot from [employer]. DIMAS-7 Assessment Billing DIMAS-7 Assessment Tool: DIMAS-7 Assessment 38826 Review of Systems Const Denies body aches, Denies chills, Denies fever(s), Denies headache(s) and Denies poor appetite Eyes Reports no additional complaints ENT Denies dysphagia, Denies dizziness, Denies headache(s) and Denies odynophagia Card Denies chest pain, Denies syncope, Denies edema, Denies irregular heart rhythm, Denies lightheadedness and Denies dyspnea Resp Denies cough and Denies dyspnea GI Denies abdominal pain, Denies constipation, Denies dysphagia, Denies diarrhea, Reports nausea, Denies odynophagia and Denies vomiting Reports no additional complaints Musc Reports no additional complaints and Denies abnormal gait Skin/Breast Reports system reviewed and no additional complaints, except as documented Neuro Denies abnormal gait, Denies dizziness, Denies syncope and Denies headache(s) Psych Reports no additional complaints Physical exam (Primary Care) Vital Signs: Last Vital Signs Pulse 83 03/15/25 15:27 Resp 16 03/15/25 15:27 BP 120/74 03/15/25 15:27 Pulse Ox 96 03/15/25 15:27 Oxygen Delivery Method Room Air 03/15/25 15:27 BMI result Body Mass Index 40.8 Tobacco/Smoking Status: Tobacco use Status Tobacco use date assessed 03/15/25 03/15/25 15:35 Patient Tobacco Use Status Never used Tobacco 03/15/25 15:35 e-Cigarette/Vaping Use Never Used 03/15/25 15:35 PHQ-9: PHQ-9 Score PHQ-9: Total score 13 03/15/25 15:45 Depression Screening Interpretation: Positive Depression Screening Follow-up: Existing condition and In treatment Thrive Assessment: Date of Thrive Assessment Date Thrive assessed 03/15/25 03/15/25 15:35 Currently or been in a relationship where the following occur: No concerns reported Const General: cooperative, healthy appearing, comfortable and no acute distress Orientation/consciousness: patient oriented x3 HENMT Head: Yes normocephalic Ears: hearing grossly normal bilaterally General nose exam: Normal external nose present Face and sinus: Yes normal facial exam and Yes sinuses nontender Mouth: Normal oral and palatal mucosa present and tongue normal Throat: Yes posterior oropharynx normal Eyes General: appearance normal, both eyes and all related structures Conjunctivae: conjunctivae normal Pupils: Equal, round and reactive pupils present EOM: EOMs intact bilaterally and No Nystagmus present Neck Neck: Yes full ROM and Yes no lymphadenopathy Chest Chest palpation & inspection: normal inspection of the chest Resp Effort & Inspection: normal respiratory effort Auscultation: clear to auscultation bilaterally, no crackles, no rales, no rhonchi and no wheezes Cardio Rate: regular rate Rhythm: regular rhythm Peripheral pulses: radial pulses present and dorsalis pedis present GI Inspection: Yes normal to inspection and No Abdominal wall edema Palpation (GI): Soft to palpation, not firm, Tenderness to palpation present (GI) (Mild tenderness to epigastric region with deep palpation), no guarding, not rigid and no pulsatile masses Auscultation: normal bowel sounds Rectal Exam - Female: deferred General: Yes no CVA tenderness Back/Spine/Pelvis Back: no CVA tenderness Skin General skin exam: no rashes or lesions noted Neuro General: patient oriented x3 Cranial nerves: Yes Equal, round and reactive pupils present, Yes Midline tongue present, Yes Ability to bilaterally elevate shoulders present and No Nystagmus present Gait exam (Neuro): Normal gait present Extrem General: Yes normal to inspection, Yes full ROM and No edema Psych Speech and movement: Normal speech and movement present Affect: normal affect Attitude: cooperative Insight: Good insight present (Psych) Judgement: Good judgement present (Psych) Immunizations Boostrix Tdap 2.5 Lf unit-8 mcg-5 Lf/0.5 mL intramuscular syringe Performing Provider: Peace Blanco PA-C [facility] Administered by: Modesta Harp LPN on 03/15/25 16:23 Dose Route Admin Location Dispensed Lot Number Expiration Date [facility] Calculating Machine Mechanic 0.5 mL IM Left Deltoid 0.5 mL [id number] 09/10/27 [id number] [employer] Total Dispensed Waste 0.5 mL 0 % VIS Given Date VIS Provided VIS Publication Date 03/15/25 Single Vaccine 20 Eligibility Eligibility Date Funding Source Not [facility] Eligible 03/15/25 Private Coding Level of Care Code Est Pt Prev Care 18-39y(52657) Diagnoses Annual physical exam Z00.00 Anxiety F41.9 Hyperlipidemia E78.5 Fatty liver K76.0 SUSI positive R76.8 Bilateral hip pain M25.551; M25.552 Mild intermittent asthma without complication J45.20 Asthma severity: mild Asthma persistence: intermittent Asthma complication type: uncomplicated Decreased appetite R63.0 Additional Codes DIMAS-7 Assessment Billing - DIMAS-7 Assessment Tool: DIMAS-7 Assessment 70927 ([id number]) PHQ-9 - 83085 - PHQ-9 Billing: Yes ([id number]) Assessment & Plan Assessment & Plan (1) Annual physical exam: Code(s): Z00.00 - Encounter for general adult medical examination without abnormal findings Category: Medical Plan: Patient is up-to-date on all recommended routine screenings and vaccinations for her age. She was given a Tdap vaccine today. Blood work is up-to-date and has been reviewed with the patient today. Healthy diet and regular exercise is encouraged. (2) Anxiety: Comment: [facility] counselor and med provider Code(s): F41.9 - Anxiety disorder, unspecified Category: Medical Plan: The patient's down mood, characterized by low energy and crying spells, started around the same time she began taking oral contraceptives. The mood changes are thought to be multifactorial, potentially related to the hormonal effects of the control, recent life stressors (buying a house, engagement), seasonal changes, and possibly an underlying anxiety or depression. The plan is to continue the control until March and monitor symptoms. The patient is advised to discuss these feelings with her counselor. If symptoms persist, a change in control will be considered. (3) Hyperlipidemia: Code(s): E78.5 - Hyperlipidemia, unspecified Category: Medical Plan: Avoid foods that are high in cholesterol such as red meat, fried foods, eggs and baked goods. Triglyceride goal of less than 150 and LDL goal of less than 130. (4) Fatty liver: Code(s): K76.0 - Fatty (change of) liver, not elsewhere classified Category: Medical Plan: Healthy diet and regular exercise is encouraged. (5) SUSI positive: Comment: Low titer positive without signs or symptoms suggestive of connective tissue disease. Low clinical suspicion for connective tissue disease at this time, which was discussed with patient. Code(s): R76.8 - Other specified abnormal immunological findings in serum Category: Medical Plan: Continue to follow with Rheumatology at this time (6) Bilateral hip pain: Comment: Personally reviewed x-rays with patient, which reveal mild bone spur of right hip with radiology concern for hip dysplasia right worse than left. We discussed conservative management to prevent progression of degenerative arthritis. Code(s): M25.551 - Pain in right hip; M25.552 - Pain in left hip Category: Medical Plan: No longer going to PT but has been working on gentle stretching and exercises f ocused on hips. She will follow up prn for this concern. (7) Asthma: Code(s): J45.909 - Unspecified asthma, uncomplicated Category: Medical Qualifiers: Asthma severity: mild Asthma persistence: intermittent Asthma complication type: uncomplicated Qualified Code(s): J45.20 - Mild intermittent asthma, uncomplicated Plan: Asthma currently controlled on present medications. Continue on albuterol prn.? Avoid triggers such as allergies. (8) Decreased appetite: Code(s): R63.0 - Anorexia Category: Medical Plan: The patient reports decreased appetite, early satiety, and occasional nausea for the past few weeks, which aligns with the onset of her mood symptoms and starting control. This is thought to be more related to anxiety and depression than a direct side effect of control. The patient will keep a log of her nausea and eating habits. She is advised to eat three small, protein- rich meals a day and to contact the provider for follow-up in the first week of March to report her progress. Plan This note was constructed using voice recognition software. While every effort has been made to ensure accuracy and fiberglass auto body repairer, still areas may have been included sometimes these areas may affect the content or meeting of the given symptoms. Total time spent caring for the patient today was 30 minutes. This includes time spent before the visit reviewing the chart, time spent during the visit, and time spent after the visit and documentation. Patient was informed and verbally consented to the use of an ambient scribe for clinic note documentation during this visit. Orders: Orders Transglutaminase Ab IgG Today T78.40XA - Allergy, unspecified, initial encounter TDaP Immunization Today Z23 - Encounter for immunization
--- OUTSIDE RECORDS SUMMARY | 2025-03-15 19:37 | XMS_ITS | Data Portability ---
Author Organization JOHN James s [address] Address [address] [place] [address] Assessment No assessment recorded. Plan of Treatment [...] mg-0.5 mg/mL ear drops,suspe nsion 2022 023 [facility]/Pharmacy #[id number], [address], [place], [address], 15:36:08 Patient TargetsNo targets recorded. Patient Instructions Encounter Date Encounter Id Patient Instructions Last Modified By Organization Details Last Modified Time 10/10/2022 [id number] earache: care instructions [email or web address] Not available 10/10/2022 15:36:06 ear infection (otitis [...] Address Organization Details Last Updated DateTime 3 76281.3 2 g 41.6 kg/m2 154.94 cm 5 95 % 67 /min 18 /min 97.9 [degF] 116/78 mm[Hg] Ligia Pompa PA - [facility] 3 14:22:38 Social History Question Answer Notes LastModified by [employer] Details LastModified Time Tobacco Smoking Status Never [...] Functional Status Question Answer Note LastModified by [employer] Details LastModified Time Do you use any [...] or 50 mcg/0.25mL dose 1 completed Ligia [place] null, PA - [facility] 10/10/2022 14:20:33 COVID-19, mRNA, LNP-S, PF, 100 mcg/0.5mL dose or 50 mcg/0.25mL dose 1 completed Ligia [place] null, PA - [facility] 10/10/2022 14:20:33 [...] or 25mcg/0.25 mL dose 2 completed Ligia [place] null, PA - [facility] 10/10/2022 14:20:33 Hep A, ped/adol, 2 dose 6 completed Ligia Aletha null, PA - [facility] 10/10/2022 14:20:33 meningococcal MCV4P 6 completed Ligia Aletha null, PA - [facility] 10/10/2022 14:20:33 Influenza, split virus, quadrivalent, PF 0 completed Ligia [place] null, PA - [facility] 10/10/2022 14:20:33 Influenza, split virus, quadrivalent, PF 5 completed Ligia Aletha null, PA - [facility] 10/10/2022 14:20:33 Influenza, split virus, quadrivalent, PF completed JOHN Jones [facility] 10/10/2022 14:20:33 Past Encounters Encounter ID Performer Location Encounter Start Date Encounter Closed Date Diagnosis/Indication Diagnosis SNOMED-CT Code Diagnosis ICD10 Code Diagnosis IMO Codes Diagnosis Note [id number] [address] [place] [address] 03/31/2021 17:14:13 03/31/2021 19:18:11 [id number] JOHN YI [address] [place] [address] 10/10/2022 14:13:14 10/10/2022 15:38:27 Impacted cerumen in right ear [id number] H61.21 Health Concerns Section Related Observation LastModified by Organization Detai ls LastModified Time None Recorded Concern Status LastModified by Organization Details LastModified Time None Recorded Advance Directives Directive None Recorded Payers Insurance Date Sequence Insurance Name Policy Number Policy Chahal Covered Member ID Chahal Member ID Guarantor Name 10/18/2022 1 [employer] [id number] Roxy Jean Baptiste [id number] Roxy Jean Baptiste Notes Date Note Type Note Provider Name and Address Organization Details Recorded Time 10/10/2022 text/html Ear Pain Brief HPIReported by [id number] y.o female pt presents with clogged right ear x 1 day. Pt has been swimming. She denies pain, or discharge. JOHN YI [facility] [place], [id number], PA - [facility] 10/10/2022 15:38:57 OBGyn Episode No OBEpisode recorded.
--- OUTSIDE RECORDS SUMMARY | 2025-03-15 19:37 | XMS_ITS | Clinical Summary ---
Author Organization [facility] Address [address] [place] [id number] Phone Care Team Providers Care Plan Examiner Name Role Phone Yary Espinal MD Primary Care Provider Unava ilable Active Problems Problem Noted Date Diagnosed Date Bunion Overview (04/15/2017): Had R bunion repair surgery 05/2015 at [facility] with good result. May need to [...] this topic Procedures * Due to [place] [employer] law, this organization might not be sharing sensitive test results. Procedure Name Priority Date/Time Associated Diagnosis Comments CHLAMYDIA AND GONORRHEA, AMPLIFIED Routine 10/05/2015 2:02 PM EDT from Last 3 Months or Most Recently Relevant to Health Maintenance Results * Due to [place] [employer] law, this organization might not be sharing sensitive test results. * Chlamydia and Gonorrhoea, Amplified (10/05/2015 2:02 PM EDT) [facility] URINE GC AMP PROBE NEGATIVE [facility] Comment: No Neisseria Gonorrhoeae RNA detected in this patient's sample (REFERENCE RANGE/NORMAL VALUE: NOT DETECTED) NOTE: This test uses mixing machine operator-mediated amplification method to detect rRNA [...] without risk of sexual abuse. Consult the [facility] if needed. [...] [facility] of [facility], [address], [place] [address] CLIA [id number] Luca Luo MD, PhD, Janitor Supervisor URINE CHLAMYDIA AMP PROBE NEGATIVE [facility] Comment: No Chlamydia Trachomatis RNA detected in this patient's sample (REFERENCE RANGE/NORMAL VALUE: NOT DETECTED) 10/05/2015 2:02 PM EDT Narrative [facility] - 10/05/2015 2:02 PM EDT URINE CHLAMYDIA GC AMP PROBE us Yary Espinal MD LAB MICROBIOLOGY - GENERAL O RDERABLES Final Result [facility] [address] [place] [address], from Last 3 Months or Most Recently Relevant to Health Maintenance Care Teams Plan Examiner Relationship Specialty Start Date End Date Yary Espinal MD PCP - General 11/08/16
--- OUTSIDE RECORDS SUMMARY | 2025-03-15 19:37 | XMS_ITS | Encounter Summary ---
Author Organization [facility] Address [address] [place] [address] Phone Care Team Providers Care Bank Reconciliator Name Role Phone Yary Espinal MD Primary Care Provider Unava ilable Encounter Details Date Type Department Care Team (Late st Contact Info) Description 11/14/2016 Conversion Encounter [facility] - [address] [address] Social History Tobacco Use Types Packs/Day Years [...] on filedocumented in this encounter Care Teams Bank Reconciliator Relationship Specialty Start Date End Date Yary Espinal MD PCP - General 11/08/16 documented as of this encounter
--- OUTSIDE RECORDS SUMMARY | 2025-03-15 19:38 | XMS_ITS | Clinical Summary ---
Author Organization [facility] Address [address] [place] [address] Phone Care Team Providers Care Fish Hatchery Superintendent Name Role Phone Peace Blanco Primary Care [...] topic Medical Devices Not on file Insurance [facility] Member Subscriber Plan / Payer (Ef fective 2024-) Name:Kristen Jean Baptisteissa Relation to Subscriber:Self Name:Roxy Jean Baptiste Payer ID:[id number] (NAIC) Type:HMO Address: [address] [place] [id number] Care Teams Fish Hatchery Superintendent Relationship Specialty Start Date End Date Peace Blanco PA [address] [place] [address] PCP - General Physician Lead Programmer Analyst 09/05/24 Additional Source Comments The information contained in this document represents components of the legal health record. It is not the complete legal health record.[facility]
--- OUTSIDE RECORDS SUMMARY | 2025-03-15 19:38 | XMS_ITS | Patient Health Record ---
Author Organization [facility] Address [address] [place] [address] Care Team Providers Care Wire Loop Machine Operator Name Role Phone Tamela Hopkins MD Primary Care Provider Juanitoa Khushboo Savage Unavailable [phone] Allergies Allergen (clinical drug ingredient) Drug/Non Drug [...] Status Risk Notes Problem Acquired hallux valgus (04950629) Hallux valgus (acquired), left foot (M20.12) Active confirmed Problem Plantar wart (66734517) Plantar wart (B07.0) Active confirmed Problem Acquired hallux valgus (13967734) Hallux valgus (acquired), right foot (M20.11) Active confirmed Problem Pes planus (63448194) Pes planus of right foot (M21.41) Active confirmed Problem Pes planus (53451075) Pes planus of left foot (M21.42) Active confirmed Problem Tailors bunion (6091623) Tailors bunion (M20.10) Active confirmed Encounters Encounter Location Date Provider Diagnosis [facility] [address] [place] [address] 03/16/2024 Khushboo Guo Plan Of Treatment No Information Insurance Providers Payer Name Payer Address Payer Phone Subscriber Number Group Number Insured Name Patient Relationship to Insured Coverage Start Date Coverage End Date [facility] [address] [facility] [id number] Roxy Jean Baptiste Self - patient is the insured Medical (General) History Medical History History ICD Code Back,Hip,and Knee pain Anxiety asthma Broken bones covid-19 Depression Gall bladder problems Liver disease Warts Joint implants/screws Surgical History Surgery Date(Month/Year) bunionectomy benign tumor removal in breast 2019 gall 12/26/2023
== END 2025-03-15 16:25 | disposition home or self-care (01) ==
LOC: HO.HMCH 15:25
DX: Z00.00 Encounter for general adult medical examination without abnormal findings (principal); F41.9 Anxiety disorder, unspecified; E78.5 Hyperlipidemia, unspecified; K76.0 Fatty (change of) liver, not elsewhere classified; R76.89 Other specified abnormal immunological findings in serum; M25.551 Pain in right hip; M25.552 Pain in left hip; J45.20 Mild intermittent asthma, uncomplicated; R63.0 Anorexia; Z23 Encounter for immunization

== ENCOUNTER → 2025-03-15 15:24 | Outpatient (BNVA) | payer BC, SELFPAY | DX: Z00.00 Encounter for general adult medical examination without abnormal findings (principal); Z23 Encounter for immunization; F41.9 Anxiety disorder, unspecified; E78.5 Hyperlipidemia, unspecified; K76.0 Fatty (change of) liver, not elsewhere classified; R76.89 Other specified abnormal immunological findings in serum; M25.551 Pain in right hip; M25.552 Pain in left hip; J45.20 Mild intermittent asthma, uncomplicated; R63.0 Anorexia | CPT/HCPCS: 90471; 90715; 96127 ==